=== PATIENT | female | born 1960 | race Caucasian/White ===

== ENCOUNTER 2021-12-08 17:56 | Emergency (ER) | payer OTHER, SELFPAY ==
--- NOTE | 2021-12-08 17:58 | ED.UPPEXIN ---
HPI - Extremity Injury (Upper) General Stated Complaint: congestion, sore throat, trouble breathing Time Seen by Provider: 12/08/21 17:57 Source: patient Mode of arrival: ambulatory Limitations: no limitations History of Present Illness HPI narrative: Ms. Salcedo is a 61-year-old female patient presenting to the clinic today with complaints of congestion, sore throat, and difficulty breathing x7 to 11 days. She reports no fever or chills. She is having white phlegm productive cough. She reports that she just recently came back from [place]. Denies any known exposure to anyone with COVID or flu or strep Related Data Allergies Allergy/AdvReac Type Severity Reaction Status Date / Time cefaclor [From Ceclor] Allergy Unknown Verified 12/08/21 18:15 cyclobenzaprine Allergy Unknown Verified 12/08/21 18:16 [From Flexeril] Review of Systems Review of Systems: Pertinent positives per HPI. Patient denies any fever, chills, rash, headache, visual changes, dizziness, cough, chest pain, palpitations, nausea, vomiting, diarrhea, constipation, abdominal pain, or any urinary issues. PMFSH Comments At the time of my signature, I reviewed and agree with the nursing past medical, surgical, social, and family history. There is no relevant family history pertinent to the patient complaint. Exam Narrative: General: Well-developed, well nourished, in no apparent distress Head: Normocephalic, atraumatic Eyes: Pupils equally round and reactive to light bilaterally, EOM intact, sclera and conjunctive clear, no discharge, lids normal Ears: TMs intact and bulging, ear canals clear, no drainage, grossly hearing normal. Nose: Nares patent, clear nasal discharge, moderate inflammation, no sinus tenderness. Mouth: Oral pharynx without lesions or masses, good dentition, MMM. Oropharynx red, postnasal drip Neck: Supple, trachea midline, no enlargement of anterior or posterior cervical nodes, no thyroid masses or goiter palpable. Cardio: Regular rate and rhythm, s1 and s2 normal, no murmur appreciated. Resp: Faint expiratory wheezing to posterior mid lobes, no rhonchi, rales, or rubs Course Course Emergency Course: Portions of this record may have been created with voice recognition software. Level of Care: Express Care Visit Vital Signs Vital signs: Vital signs reviewed MDM - Extremity Injury (Upper) MDM Narrative Medical decision making narrative: At the time of visit patient was resting comfortably on the exam table. I suspect the patient has bronchitis/pharyngitis. Patient has a history of COPD and she is a current smoker. She has a productive cough with white phlegm. I will go ahead and treat her as a COPD exacerbation and give her a prescription for some prednisone, azithromycin, and new albuterol inhaler. Supportive measures were discussed with the patient and she voiced understanding of discharge instructions and agrees to the treatment plan. Differential Diagnosis Differential diagnosis: Likely other (URI, pharyngitis, COVID, bronchitis, COPD exacerbation, asthma exacerbation, viral infection) Discharge Plan Discharge Clinical Impression: Bronchitis Pharyngitis Qualifiers: Pharyngitis/tonsillitis etiology: unspecified etiology Qualified Code(s): J02.9 - Acute pharyngitis, unspecified Patient Disposition: Home, Self-Care Condition: Stable Instructions: Antibiotic Form, Pharyngitis (ED), Acute Bronchitis (ED) Additional Instructions: Take prescription medications only as prescribed-prednisone, albuterol, and azithromycin Increase fluids and stay well hydrated Tylenol/motrin for pain/fever Flonase and OTC antihistamines as directed Vicks vapor rub to open sinuses Sinus rinses for congestion Cepacol spray, cough drops, throat lozenges, warm tea with honey/lemon, gargle salt water to soothe throat BRAT diet for diarrhea Clear liquids x 24 hours then advance as tolerated for nausea/vomiting August
[2021-12-08 18:04] VITALS: BP 146/74; PULSE 75; RESP 20; TEMP 36.5; O2SAT 97
== END 2021-12-08 18:20 | disposition home or self-care (01) ==
LOC: EXPBETH 18:01
PROVIDERS: Emergency Provider Nurse Practitioner Family
DX: J40 Bronchitis, not specified as acute or chronic (principal); J02.9 Acute pharyngitis, unspecified; J44.9 Chronic obstructive pulmonary disease, unspecified; F17.290 Nicotine dependence, other tobacco product, uncomplicated; I25.10 Atherosclerotic heart disease of native coronary artery without angina pectoris; Z95.1 Presence of aortocoronary bypass graft; E78.00 Pure hypercholesterolemia, unspecified; I10 Essential (primary) hypertension; E03.9 Hypothyroidism, unspecified; F41.9 Anxiety disorder, unspecified
CPT/HCPCS: 99213; G0463

== ENCOUNTER 2024-07-07 15:57 | Emergency (ER) | payer MEDICARE, SELFPAY ==
[2024-07-07 16:10] VITALS: BP 180/79; PULSE 63; RESP 20; TEMP 36.9; O2SAT 95
--- NOTE | 2024-07-07 16:24 | ED_ITS ---
HPI - URI/Sore Throat General Chief Complaint: Upper Respiratory Infection Stated Complaint: shallow breathing Time Seen by Provider: 07/07/24 16:32 Source: patient and RN notes reviewed Mode of arrival: ambulatory Limitations: no limitations History of Present Illness HPI Narrative: 64-year-old female presents with concern for ?shallow breathing?. She has history of COPD and emphysema. She reports she uses 2 inhalers, she has been using her rescue inhaler every 2 hours. She uses oxygen when she sleeps at night. She denies cough. Denies fever, runny nose, stuffy nose. MD elicited complaint: other (Shortness of breath) Related Data Home Medications ?Medication ?Instructions ?Recorded ?Confirmed ?Last Taken ?Type albuterol sulfate 90 mcg/actuation 2 puff inhalation Q6H PRN sob 12/08/21 12/08/21 Unknown History aerosol inhaler bupropion HCl 300 mg 24 hr tablet, 300 mg PO DAILY 12/08/21 12/08/21 Unknown History extended release carvedilol 25 mg tablet 25 mg PO BID 12/08/21 12/08/21 Unknown History clopidogrel 75 mg tablet 75 mg PO DAILY 12/08/21 12/08/21 Unknown History duloxetine 60 mg capsule,delayed 60 mg PO BID 12/08/21 12/08/21 Unknown History release ipratropium 0.5 mg-albuterol 3 mg 3 ml inhalation Q6H PRN sob 12/08/21 12/08/21 Unknown History (2.5 mg base)/3 mL nebulization soln lactobacillus combination no.4 3 3,000 mmu cells PO DAILY 12/08/21 12/08/21 Unknown History billion cell capsule (Probiotic) losartan 100 mg tablet 100 mg PO DAILY 12/08/21 12/08/21 Unknown History montelukast 10 mg tablet 10 mg PO DAILY 12/08/21 12/08/21 Unknown History nisoldipine 17 mg tablet,extended 17 mg PO DAILY 12/08/21 12/08/21 Unknown History release 24 hr nitroglycerin 0.2 mg/hr See Rx Instructions .Route 12/08/21 12/08/21 Unknown History transdermal 24 hour patch .COMPLEX PRN SOB rosuvastatin 10 mg tablet 10 mg PO DAILY 12/08/21 12/08/21 Unknown History trazodone 100 mg tablet 100 mg PO DAILY 12/08/21 12/08/21 Unknown History vitamin B complex 1 tablet PO DAILY 12/08/21 12/08/21 Unknown History vitamin E mixed 400 unit capsule 400 unit PO DAILY 12/08/21 12/08/21 Unknown History isosorbide mononitrate 30 mg mg PO 07/07/24 Unknown History tablet,extended release 24 hr levothyroxine 100 mcg tablet mcg 07/07/24 Unknown History Allergies Allergy/AdvReac Type Severity Reaction Status Date / Time cefaclor (From Ceclor) Allergy Mild Rash Verified 07/07/24 16:15 cyclobenzaprine (From Allergy Mild Rash Verified 07/07/24 16:15 Flexeril) Review of Systems Review of Systems: CONSTITUTIONAL: Denies malaise, chills, sweats, or fever. EYES: Denies visual changes, redness, or discharge. ENT: Denies rhinorrhea, congestion, sinus pain, otalgia and sore throat. CARDIOVASCULAR: Denies chest pain, palpitations, or edema. RESPIRATORY: Denies cough. Reports dyspnea. GASTROINTESTINAL: Denies abdominal pain, nausea, vomiting, diarrhea SKIN: Denies rash or itching. MUSCULOSKELETAL: Denies myalgia. NEUROLOGIC: Denies headache. All systems reviewed & are unremarkable except as noted in HPI and below PMFSH Comments At time of signature, agree with nursing past medical, surgical, social and family history. There is no relevant family history pertinent to the presenting complaint Exam Narrative: GENERAL: Well-appearing, well-nourished, and in no acute distress. HEAD: Normocephalic EYES: PERRLA, conjunctivae clear ENT: Nares clear, turbinates edematous and erythematous, clear discharge. Mucous membranes moist. TM pearly agustin with dull light reflex bilaterally; no tragal tenderness. Oropharynx not erythematous without lesions. Tonsils not enlarged and without exudate, no drooling, no hoarseness, no trismus, uvula midline. NECK: Supple. No lymphadenopathy CHEST: Breath sounds diminished throughout. No wheezing, rhonchi, rales, or stridor. No respiratory distress, speaks in full sentences. HEART: Regular rate and rhythm. No murmur heard. SKIN: Warm, dry, no rash. NEURO: Alert and oriented x3. PSYCH: Normal mood and affect Course Course Emergency Course: Patient is aware of diagnosis, understands and agrees to treatment plan. Anticipatory guidance given. Patient agrees to follow-up as directed and is aware of reasons to seek care at the emergency department. Portions of this record may have been created with voice recognition software Level of Care: Express Care Visit Reevaluation(s) Reevaluation #1: DuoNeb given, breath sounds improved with aeration improved after DuoNeb, O2 saturation 96%. Patient reports some improvement in symptoms. Will discharge patient with antibiotic, prednisone, albuterol inhaler refill. Date: 07/07/24 Time: 17:00 Vital Signs Vital signs: Vital Signs Temperature 98.5 F 07/07/24 16:10 Pulse Rate 63 07/07/24 16:10 Respiratory Rate 20 07/07/24 16:10 Blood Pressure 180/79 H 07/07/24 16:10 Pulse Oximetry 95 07/07/24 16:10 Oxygen Delivery Room Air 07/07/24 16:10 Temperature 98.5 F 07/07/24 16:10 Pulse Rate 63 07/07/24 16:10 Respiratory Rate 20 07/07/24 16:10 Blood Pressure 180/79 H 07/07/24 16:10 Pulse Oximetry 95 07/07/24 16:10 Oxygen Delivery Room Air 07/07/24 16:10 Reviewed. MDM - URI/Sore Throat MDM Narrative Medical decision making narrative: Differential diagnosis considered: Covarrubias virus, strep pharyngitis, allergic rhinitis, upper respiratory tract infection, sinusitis, rhinosinusitis, nasopharyngitis. viral pharyngitis, otitis media, otitis externa, pneumonia, bronchitis, viral cough syndrome, viral syndrome, and influenza. Exam findings show no acute concerns or changes; patient is non-toxic appearing and is in no distress. Patient is appropriate for outpatient treatment and follow-up. Lab Data Attestation: I reviewed the patient's lab results. Critical Care Time Critical Care Time Critical Care Time: No Discharge Plan Discharge Clinical Impression: Acute exacerbation of chronic obstructive pulmonary disease Patient Disposition: Home, Self-Care Condition: Stable Instructions: Antibiotic Form, COPD (Chronic Obstructive Pulmonary Disease) (ED) Additional Instructions: 1) Please follow-up with your primary care doctor in the next 1-2 days. 2) If you have any worsening of symptoms or any other urgent concerns please go to the ER. 3) Please take medications as prescribed and continue taking your home medications as usual. 4) Please read and follow information included in discharge instructions. Patient Language: [place] Prescriptions: New azithromycin [Zithromax Z-Ford] 250 mg tablet See Rx Instructions .ROUTE .COMPLEX Qty: 6 0RF Rx Instructions: take 500 mg today (day 1), then 250 mg for 4 days (days 2-5) prednisone 20 mg tablet 40 mg PO DAILY 5 Days Qty: 10 0RF albuterol sulfate 90 mcg/actuation HFA aerosol inhaler 2 puff INHALATION QID PRN (Reason: shortness of breath or wheezing) Qty: 8.5 0RF No Action azithromycin 250 mg tablet See Rx Instructions .ROUTE .COMPLEX Qty: 6 0RF Rx Instructions: For 250 mg dose pack: take 500 mg today (day 1), then 250 mg for 4 days (days 2-5) prednisone 20 mg tablet 40 mg PO DAILY 5 Days Qty: 10 0RF albuterol sulfate 90 mcg/actuation HFA aerosol inhaler 2 puff inhalation Q4-6H PRN (Reason: shortness of breath or wheezing) 30 Days Qty: 8.5 0RF nitroglycerin 0.2 mg/hr patch 24 hour See Rx Instructions .ROUTE .COMPLEX PRN (Reason: SOB) Rx Instructions: PRESCRIBED clopidogrel 75 mg tablet 75 mg PO DAILY trazodone 100 mg tablet 100 mg PO DAILY montelukast 10 mg tablet 10 mg PO DAILY losartan 100 mg tablet 100 mg PO DAILY rosuvastatin 10 mg tablet 10 mg PO DAILY bupropion HCl 300 mg tablet extended release 24 hr 300 mg PO DAILY nisoldipine 17 mg tablet extended release 24 hr 17 mg PO DAILY carvedilol 25 mg tablet 25 mg PO BID duloxetine 60 mg capsule,delayed release(DR/EC) 60 mg PO BID vitamin B complex Tablet 1 tablet PO DAILY vitamin E mixed [Natural Vitamin E] 400 unit Capsule 400 unit PO DAILY Probiotic 3 billion cell Capsule 3,000 mmu cells PO DAILY Rx Instructions: administer with a meal ipratropium-albuterol 0.5 mg-3 mg(2.5 mg base)/3 mL solution for nebulization 3 ml INHALATION Q6H PRN (Reason: sob) albuterol sulfate 90 mcg/actuation HFA aerosol inhaler 2 puff INHALATION Q6H PRN (Reason: sob) isosorbide mononitrate 30 mg tablet extended release 24 hr PO levothyroxine 100 mcg tablet Follow-up/Referrals: Araseli,MD Ever [Primary Care Provider] - Time of Disposition: 17:00
[2024-07-07] MEDS: IPRATROPIUM 0.5 MG/ALBUTEROL SULFATE 2.5 MG AMPUL.NEB 3 ML INHALATION (16:35)
[2024-07-07 17:03] VITALS: PULSE 58; O2SAT 96
[2024-07-07 17:05] VITALS: PULSE 61; RESP 20; O2SAT 96
--- OUTSIDE RECORDS SUMMARY | 2024-07-07 17:20 | XMS_ITS | Encounter Summary ---
Author Organization [facility] [place] [address] [place] [address] Care Team Providers Care Physician In Private Practice Name Role Phone Peter Sawant DO Primary Care Provider [phone] Abhijeet Carvajal MD Unavailable [phone] Norris Couletr MD Unavailable [phone] Fredy Foreman MD Unavailable [phone] Marv Roper Unavailable Evelyn Chavez MD Unavailable Encounter Details Date Type Department Care Team (Late st Contact Info) Description 03/07/2016 Scanned Document [employer] [facility] Rheumatology [address] [facility], [address] [place], [place] [id number] Evelyn Chavez MD [address] [place], [place] [id number] Social History Tobacco Use Types Packs/Day Years Used Date Smoking Tobacco: Light Smoker Cigarettes Smokeless Tobacco: Never Comments:age [age] Alcohol Use Standard Drinks/Week Comments Yes 0 (1 standard drink = 0.6 oz pur e alcohol) once every 6 months Comments Unknown Sex and Gender Information Value Date Recorded Sex Assigned at Not on file Legal Sex Female 9:50 AM CDT Gender Identity Not on file Sexual Orientation Not on file documented as of this encounter Plan of Treatment Not on file documented as of this encounter Visit Diagnoses Not on filedocumented in this encounter Care Teams Physician In Private Practice Relationship Specialty Start Date End Date Peter Sawant DO PCP - General Family Medicine 08/08/15 Abhijeet Carvajal MD Surgeon Neurosurgery 11/03/15 Norris Coulter MD [address] [place] [id number] Consulting Physician Pulmonary Disease 11/03/15 Fredy Foreman MD [address] [place] [phone] Residential Tech Cardiovascular Disease 11/03/15 Marv Roper PA [address] [place] [phone] Physician Medical Technologist Generalist Neurosurgery 11/03/15 Evelyn Chavez MD [address] [place] [phone] Consulting Physician Rheumatology 05/03/20 documented as of this encounter
--- OUTSIDE RECORDS SUMMARY | 2024-07-07 17:20 | XMS_ITS | Encounter Summary ---
Author Organization [facility] Address [address] [place] [address] Care Team Providers Care Bacteriologist Food Name Role Phone SavanaPeter Rajani JOHNSON Primary Care Provider Abhijeet Carvajal MD Unavailable [phone] Norris Coulter MD Unavailable [phone] Fredy Foreman MD Unavailable [phone] Marv Roper Unavailable Evelyn Chavez MD Unavailable Reason for Referral * Diagnostic Imaging (Emergency) - Closed Specialty Diagnoses / Procedures Referred By Contac t Referred To Contact Diagnoses Ulnar neuropathy of left upper extremity Procedures ECG 12 lead Abhijeet Carvajal MD Phone: tel: fax: Referral ID Status Reason Start Date Expiration Date Visits Re quested Visits Authorized [id number] Closed 06/20/2016 06/20/2017 1 1 * Diagnostic Imaging (Emergency) - Closed Specialty Diagnoses / Procedures Referred By Contac t Referred To Contact Diagnoses Ulnar neuropathy of left upper extremity Procedures X-ray chest 1 view Abhijeet Carvajal MD Phone: tel: fax: Referral ID Status Reason Start Date Expiration Date Visits Re quested Visits Authorized [id number] Closed 06/20/2016 06/20/2017 1 1 Encounter Details Date Type Department Care Team (Late st Contact Info) Description 06/20/2016 Prep for Case [facility] [address] [facility].[address], [address] [place] [address] Abhijeet Carvajal MD [address] [place] [address] Ulnar neuropathy of left upper extremity (Primary Dx) Social History Tobacco Use Types Packs/Day Years Used Date Smoking Tobacco: Light Smoker Cigarettes Smokeless Tobacco: Never Comments:age [age] Alcohol Use Standard Drinks/Week Comments Yes 0 (1 standard drink = 0.6 oz pur e alcohol) once every 6 months Comments No Sex and Gender Information Value Date Recorded Sex Assigned at Not on file Legal Sex Female 9:50 AM CDT Gender Identity Not on file Sexual Orientation Not on file documented as of this encounter Functional Status * Is this person blind or does he/she have serious difficulty seeing even when wearing glasses? Answer Date of Assessment Author No 04/19/2016 10:07 AM WINCH STRIPPER * Does this person have serious difficulty walking or climbing stairs? Answer Date of Assessment Author No 04/19/2016 10:07 AM WINCH STRIPPER * Does this person have difficulty dressing or bathing? Answer Date of Assessment Author Yes 04/19/2016 10:07 AM WINCH STRIPPER documented as of this encounter H&P Notes * Abhijeet Carvajal MD - 06/20/2016 7:51 AM CDT Images from the original note were not included. Chief Complaint Patient presents with ??? R Carpel tunnel release ? 04/26/2016 ? HPI Comments: Eduarda Salcedo presents today for her first postoperative appointment status post right carpal tunnel release. The patient reports her hand is sore along her palm as expected she does feel like maybe a little bit less numbness and tingling in her hand and fingers overall not describing any significant complaints or concerns about her surgery. She is now ready to start moving forward with her left ulnar nerve release that we discussed with her prior to the right carpal tunnel release. ? Review of Systems Constitutional: Positive for fatigue. Bleeding tendency HENT: Positive for hearing loss, sinus pressure and tinnitus. Respiratory: Positive for shortness of breath. Musculoskeletal: Positive for back pain and joint swelling. Muscle spasm Neurological: Positive for weakness. Psychiatric/Behavioral: Positive for dysphoric mood. All other systems reviewed and are negative. ?? Objective: ?? Objective Physical Exam Neurological: GENERAL APPEARANCE: Alert, Oriented X3, with no apparent distress. HEAD: Atraumatic. Normocephalic. EYES: PERRLA, no icterus. NOSE: normal. MOUTH: normal oropharynx. NECK: Supple without cervical lymphadenopathy. No masses LUNGS: No constrochondral tenderness. Resp nonlabored CVS: pulses intact, no edema ABDOMEN: soft non tender no palpable organomegally. EXTREMITIES: pulses present, no peripheral edema, clubbing or cyanosis. SKIN: no rash or bruising. Warm and dry. PSYCHIATRIC EVALUATION: normal affect. No depression or anxiety. Right hand incision is healing well with some very light bruising in her palm/palmar crease. No sign of infection. She continues to have left elbow tenderness along her ulnar groove and proximal to her elbow as well is tender. She has decreased sensation in her fourth and fifth digits. ?? IMAGING There are no images to be reviewed on today's encounter. ?? Assessment/Plan: ? Diagnosis ICD-10-CM ICD-9-CM Plan 1. Ulnar neuropathy of left upper extremity G56.22 354.2 ? No orders of the defined types were placed in this encounter. ? At this time we feel that her right wrist and hand is healing appropriately and that she'll be ready to move forward with her left ulnar nerve decompression here in the next couple of weeks. We'll begin scheduling authorization for left ulnar nerve decompression at her left elbow. Risks, expectations, benefits, possible complications were all discussed with the patient. She understands and wishesto proceed with left ulnar decompression her elbow.I declare under penalty of perjury, that I have examined this report and all statements contained herein, and to the best of my knowledge and beliefthey are true, correct and complete. This patient was seen in conjunction with Dr. Carvajal, who agrees with the above assessment and plan. documented in this encounter Plan of Treatment Not on file documented as of this encounter Results * (ABNORMAL) Urinalysis, Complete W/Reflex To Culture (06/26/2016 8:48 AM CDT) Urine Color YELLOW YELLOW [facility] Urine Clarity CLEAR CLEAR [facility] U Specific [place] 1.013 1.001 - 1.035 [facility] Urine pH 7.0 5.0 - 8.0 pH [facility] U Leukocyte Esterase Negative Negative [facility] U Nitrite Negative NEGATIVE [facility] U Glucose Negative Negative mg/dL [facility] U Protein Negative Negative [facility] U Ketone Negative Negative [facility] U Bilirubin Negative Negative [facility] Comment:Any Positive Urine B ilirubin must be confirmed by an Ictotest and is automatically reflexed. See Ictotest results for confirmation. U Blood Negative Negative [facility] U RBC/hpf None Seen None Seen [facility] U WBC/hpf None Seen None Seen [facility] U Bacteria Few(A) None Seen [facility] U Epithelial Cells 0-5 /hpf None Seen [facility] Urine specimen (specimen) Venous blood specimen / Unknown 06/26/2016 8:48 AM CDT 06/26/2016 9:46 AM CDT Narrative [facility] - 06/26/2016 10:10 AM CDT Specimen Source:->Urine, Clean Catch us Abhijeet Carvajal MD LAB URINE ORDERABLES Final Resu lt [facility] [address] [place] [address] * Basic Metabolic Panel (06/26/2016 8:48 AM CDT) Sodium 141 135 - 146 mmol/L [facility] Potassium, Serum 3.9 3.5 - 5.3 mmol/L [facility] Chloride 106 98 - 110 mmol/L [facility] Carbon Dioxide Level 28 18 - 30 mmol/L [facility] Glucose Level 79 65 - 99 mg/dL [facility] Blood Urea Nitrogen 14 7 - 25 mg/dL [facility] Creatinine 0.9 0.5 - 1.2 mg/dL [facility] Calcium Level 9.7 8.5 - 10.4 mg/dL [facility] BUN/Creatinine Ratio 15.9 6.0 - 25.0 (calc) [facility] Anion Gap-Calculated 7 4 - 16 mmol/L [facility] Osmolality (Calculated) 291.4 273.0 - 304.0 mOsmol [facility] Blood specimen (specimen) Venous blood specimen / Unknown 06/26/2016 8:48 AM CDT 06/26/2016 9:34 AM CDT Narrative [facility] - 06/26/2016 10:10 AM CDT Specimen Type->Blood us Abhijeet Carvajal MD LAB BLOOD ORDERABLES Final Resu lt [facility] [address] [place] [address] * (ABNORMAL) CBC (06/26/2016 8:48 AM CDT) WBC 6.0 3.8 - 10.8 X 10^3/uL [facility] Red Blood Cell Count 4.97 3.80 - 5.10 x 10^6/uL [facility] Hemoglobin 14.0 11.7 - 15.5 g/dL [facility] Hematocrit 41.4 35.0 - 45.0 % [facility] Mean Cell Volume 83.4 80.0 - 100.0 fL [facility] Mean Cell Hemoglobin 28.1 27.0 - 33.0 pg [facility] Mean Cell Hemoglobin Concentration 33.7 32.0 - 36.0 g/dL [facility] RDW 13.1 11.0 - 15.0 % [facility] Platelet Count 228 140 - 400 X 10^3/uL [facility] Mean Platelet Volume 6.9(L) 7.5 - 11.5 fL [facility] Neutrophils 52.4 % [facility] Lymphocytes 32.4 % [facility] Monocytes. 10.1 % [facility] Eosinophils 4.4 % [facility] Basophils 0.7 % [facility] Absolute Neutrophils 3.100 1.500 - 7.800 X 10^3/uL [facility] Absolute Lymphocytes. 1.900 0.850 - 3.900 X 10^3/uL [facility] Absolute Monocytes 0.600 0.200 - 0.950 X 10^3/uL [facility] Absolute Eosinophils 0.300 0.015 - 0.500 X 10^3/uL [facility] Absolute Nucleated RBC 0.010 X 10^3/uL [facility] Reviewed Differential NOT INDICATED [facility] Blood specimen (specimen) Venous blood specimen / Unknown 06/26/2016 8:48 AM CDT 06/26/2016 9:34 AM CDT Narrative [facility] - 06/26/2016 9:47 AM CDT Specimen Source:->Blood, Venous us Abhijeet Carvajal MD LAB BLOOD ORDERABLES Final Resu lt [facility] [address] [place] [address] documented in this encounter Visit Diagnoses Diagnosis Ulnar neuropathy of left upper extremity- Primary documented in this encounter Care Teams Bacteriologist Food Relationship Specialty Start Date End Date Peter Sawant DO PCP - General Family Medicine 08/08/15 Abhijeet Carvajal MD Surgeon Neurosurgery 11/03/15 Norris Coulter MD [address] [place] [address] Consulting Physician Pulmonary Disease 11/03/15 Fredy Foreman MD [address] [place] [address] Recovery Operator Helper Cardiovascular Disease 11/03/15 Marv Roper PA [address] [place] [address] Physician Driller And Broacher Neurosurgery 11/03/15 Evelyn Chavez MD [address] [place] [address] Consulting Physician Rheumatology 05/03/20 documented as of this encounter
--- OUTSIDE RECORDS SUMMARY | 2024-07-07 17:20 | XMS_ITS | Clinical Summary ---
Author Organization [facility] Address [address] [place] [address] Care Team Providers Care Game Preserve Manager Name Role Phone SavanaPeter eckert Rajani JOHNSON Primary Care Provider [phone] Abhijeet Carvajal MD Unavailable [phone] Norris Coulter MD Unavailable [phone] Fredy Foreman MD Unavailable [phone] Marv Roper Unavailable Evelyn Chavez MD Unavailable Allergies Active Allergy Reactions Criticality Noted Date Comments Atorvastatin Other (See Comments) 11/04/2015 Myalgia Cefaclor Hives,Rash High 11/04/2015 Cyclobenzaprine Hives,Rash High 11/04/2015 Lisinopril GI Intolerance 11/04/2015 diarrhea Medications nisoldipine (Sular) 17 MG 24 hr tablet Take 17 mg by mouth daily. 1 6 Active montelukast (Singulair) 10 MG tablet Take 10 mg by mouth daily. 1 6 Active methocarbamol (Robaxin) 500 MG tablet Take 500 mg by mouth every 8 (eight) hours as needed for muscle spasms. 2 6 Active losartan (Cozaar) 100 MG tablet Take 100 mg by mouth daily. 1 6 Active carvedilol (Coreg) 25 MG tablet Take 50 mg by mouth 2 (two) times a day with meals. 3 6 Active levothyroxine (Synthroid, Levothroid) 100 MCG tablet Take 100 mcg by mouth every morning before breakfast. Active aspirin, antiplatelet dose, 81 MG chewable tablet Chew 81 mg daily. Active hydroCHLOROthiaz estrellita (Microzide) 12.5 MG capsule Take 12.5 mg by mouth daily as needed (swelling). Active azelastine (Astelin) 0.1 % nasal spray Administer 1 spray into each nostril daily as needed for rhinitis. Use in each nostril as directed Active sodium chloride 0.9 % nebulizer solution 3 mL with ipratropium 0.02 % solution 0.5 mg, albuterol (5 MG/ML) 0.5% nebulizer solution 2.5 mg Take 3 mL by nebulization 4 (four) times a day as needed (wheezing). Active DULoxetine (Cymbalta) 60 MG capsule Take 60 mg by mouth daily. Active rosuvastatin (Crestor) 10 MG tablet Take 10 mg by mouth nightly. Active nitroglycerin (Nitrostat) 0.[address] 0.4 mg under the tongue every 5 (five) minutes as needed for chest pain. Reported on 07/12/2016 Active cloNIDine (Catapres) 0.1 MG tablet Take 0.1 mg by mouth as needed for high blood pressure (prn for systolic blood pressure greater than 160). Reported on 07/12/2016 Active tiotropium (SPIRIVA RESPIMAT) 2.5 MCG/ACT aerosol solution inhaler Inhale 1 puff nightly. Reported on 07/12/2016 Active Coenzyme Q-10 200 MG capsule Take 1 capsule by mouth daily. Active albuterol (Ventolin HFA) 108 (90 BASE) MCG/ACT inhaler Inhale 2 puffs every 6 (six) hours as needed for wheezing. Active buPROPion SR (Wellbutrin SR) 100 MG 12 hr tablet Take 200 mg by mouth daily. Active traZODone (Desyrel) 100 MG tablet Take 100 mg by mouth nightly. Active TiZANidine (ZANAFLEX) 2 MG capsule Take 2 mg by mouth 3 (three) times a day. Active clopidogrel (Plavix) 75 MG tablet Take 75 mg by mouth daily. Active hydroxychloroqui ne (Plaquenil) 200 MG tabletIndication s:Rheumatoid Arthritis TAKE 1 TABLET BY MOUTH DAILY INDICATIONS: RHEUMATOID ARTHRITIS 30 tablet 2 03/01/202 1 Active Active Problems Patient Care Coordination No te Formatting of this note migh t be different from the original. 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 non -steroidal anti-inflammatories (NSAID) 11/04/2015 Rheumatoid arthritis 11/04/2015 Osteoarthritis 11/04/2015 High risk medication use 11/04/2015 Family History Medical History Relation Name Comments Arthritis Father Heart attack Father Hypertension Father Arthritis Mother Hyperlipidemia Mother Hypertension Mother Asthma Other not specified Depression Other not specified Heart disease Other not specified Lung cancer Other not specified Stroke Other not specified Thyroid disease Other not specified Colon cancer Paternal Grandfather Heart attack Paternal Grandfather Arthritis Paternal Grandmother Breast cancer Sister Thyroid disease Sister Allergies Neg Hx Relation Name Status Comments Father Mother Other not specified Alive Paternal Grandfather Paternal Grandmother Sister Social History Tobacco Use Types Packs/Day Years Used Date Smoking Tobacco: Heavy Smoker Cigarettes 0.5 54.2 Started: 1973 Smokeless Tobacco: Never Alcohol Use Standard Drinks/Week Comments Yes 0 (1 standard drink = 0.6 oz pur e alcohol) once every 6 months Comments No Sex and Gender Information Value Date Recorded Sex Assigned at Not on file Legal Sex Female 9:50 AM CDT Gender Identity Not on file Sexual Orientation Not on file Last Filed Vital Signs Vital Sign Reading Time Taken Comments Blood Pressure 123/61 07/19/2020 11:52 AM CDT Pulse 63 07/19/2020 11:52 AM CDT Temperature 36.1 C (97 F) 07/19/2020 11:52 AM CDT Respiratory Rate 16 07/19/2020 11:52 AM CDT Oxygen Saturation 96% 07/19/2020 11:52 AM CDT Inhaled Oxygen Concentration - - Weight 72.6 kg (160 lb) 07/19/2020 11:52 AM CDT Height 162.6 cm (5' 4 ) 07/19/2020 11:52 AM CDT Body Mass Index 27.46 07/19/2020 11:52 AM CDT Plan of Treatment Health Maintenance Due Date Last Done Comments Mammogram 1960 Pneumococcal Vaccine: 65+ Years (2 of 2 - PCV) 013 06/07/2011 Influenza Vaccine (Season Ended) 2024 Colonoscopy 10/20/2030 10/20/2020 Insurance [employer]-A[employer] CHOICE POS [employer] CHOICE POS Care Teams Game Preserve Manager Relationship Specialty Start Date End Date Savana Peter GerardDO PCP - General Family Medicine 08/08/15 Abhijeet Carvajal MD Surgeon Neurosurgery 11/03/15 Norris Coulter MD [address] [place] [address] Consulting Physician Pulmonary Disease 11/03/15 Fredy Foreman MD [address] [place] [address] Table Hand Cardiovascular Disease 11/03/15 Marv Roper PA [address] [place] [address] Physician Financial Consultant Neurosurgery 11/03/15 Evelyn Chavez MD [address] [place] [address] Consulting Physician Rheumatology 05/03/20
--- OUTSIDE RECORDS SUMMARY | 2024-07-07 17:20 | XMS_ITS | Continuity of Care Document ---
Author Name [facility] Organization [facility] Care Team Providers Care Continuing Education Dean Name Role Phone [facility] Unavailable Unavailable Problems Combined list of problems from Department of Defense and [facility] facilities. It does not include entries that were removed or entered in error. Problem Status Onset Date Problem Type Date of Resolution Comments Source Allergic Rhinitis (SCT 91814693) Active Condition [facility] Anxiety Active Condition [facility] Anxiety disorder Active [place] [facility] Benign essential hypertension (SNOMED CT 3274187) Active Condition [facility] CAD - Coronary Artery Disease (SCT 78842949) Active Condition Jun 07, 2023 Entered By: RACHEL FLYNN Comment: H/O CABG [facility] CHF - Congestive Heart Failure (SCT 01324420) Active Condition [facility] Chronic obstructive lung disease Active [place] [facility] COPD - Chronic Obstructive Pulmonary Disease (SCT 18612655) Active Condition [facility] Coronary Artery Disease * Active Condition [facility] H/O: hysterectomy Active Condition [facility] History of cholecystectomy Active [place] [facility] History of coronary artery bypass grafting Active Condition Dec 28, 2014 Entered By: Corie DOBBINS Comment: CABG 06/2010 [facility] HTN - Hypertension (SCT 61815622) Active Condition [facility] Hypothyroidism (SCT 83563728) Active Condition [facility] Hypothyroidism (SNOMED CT 73105479) Active Condition [facility] Insomnia Active [place] [facility] Major depressive disorder Active Condition [facility] Major depressive disorder (SNOMED CT 605874963) Active Condition [facility] Nicotine dependence (SNOMED CT 38327750) Active Condition [facility] Obstructive Sleep Apnea of Adult (SCT 5572340436738) Active Condition [facility] Obstructive sleep apnea syndrome Active Condition [facility] Osteopenia Active Condition [facility] Pain in joint involving ankle and foot (ICD-9-CM 719.47) Active Condition [facility] Tobacco User (SCT 994615371) Active Condition [facility] Diagnosis: ICD-10-CM I25.10 Athscl heart disease of syc[place] coronary artery w/o ang pctrs Active Diagnosis [facility] Diagnosis: ICD-10-CM Z71.89 Other specified counseling Active Diagnosis [facility] Diagnosis: ICD-10-CM Z55.9 Problems related to education and literacy, unspecified Active Diagnosis [facility] Diagnosis: ICD-10-CM Z00.00 Encntr for general adult medical exam w/o abnormal findings Active Diagnosis [facility] Medications Combined list of outpatient medications from Department of Defense and [facility] facilities.Medications provided include 1) outpatient medications from the last 15 months, and 2) patient-reported medications. Medication Details Route Status Patient Instructions Prescription Expires Prescription Number Last Dispense Date Ordering Provider Order Date Order Qty Source 0 NON-VA MEDICATION ASSESSMENT DONE [facility] USE NISOLDIP INE ER 17 MG DIRECTED DAILY NOT APPLIC ABLE ACTIVE MEERA GOLDMAN 2016 [facility] ALBUTEROL SO4 0.083% INHL,3ML,UD USE 1 VIAL (3ML) INHALED UD PRN RESPIR ATORY (INHAL ATION) ACTIVE MEERA GOLDMAN 2016 [facility] ALBUTEROL SO4 90MCG/ACTUA T (CFC-F) INHL,ORAL,8 .5GM INHALE 2 PUFFS BY ORAL INHALATI ON FOUR TIMES A DAY RESPIR ATORY (INHAL ATION) ACTIVE JAMISON FLYNN [address] [facility] ASPIRIN 81MG TAB,EC TAKE ONE TABLET BY MOUTH DAILY ORAL ACTIVE MEERA GOLDMAN 2014 [facility] AZELASTINE HCL 137MCG/SPRA Y INHL,NASAL, 30ML SPRAY 1 SPRAY IN NOSTRIL( S) TWICE A DAY NASAL ACTIVE JAMISON FLYNN [address] [facility] BUPROPION HCL 300MG 24HR TAB,SA TAKE ONE TABLET BY MOUTH ONCE A DAY FOR DEPRESSI ON SWALLOW WHOLE - DO NOT CRUSH OR CHEW. ORAL ACTIVE 05/01/2025 [id number] JAMISON FLYNN [address] [facility] BUPROPION HCL 300MG 24HR TAB,SA TAKE ONE TABLET BY MOUTH ONCE A DAY FOR DEPRESSI ON SWALLOW WHOLE - DO NOT CRUSH OR CHEW. ORAL DISCONT INUED 09/25/2024 [id number] JAMISON FLYNN [address] [facility] CARVEDILOL 25MG TAB TAKE ONE TABLET BY MOUTH TWICE A DAY ORAL ACTIVE MEERA GOLDMAN 2015 [facility] CHOLECALCIF KRISTYN (LOW DOSE VIT D) - (OTC) TAB TAKE BY MOUTH ONCE A DAY ORAL ACTIVE JAMISON FLYNN [address] [facility] CHOLECALCIF KRISTYN 25MCG (1,000UNIT) TAB TAKE ONE TABLET BY MOUTH DAILY ORAL ACTIVE FAHEEM PALACIOS 2017 [facility] CLONIDINE HCL 0.1MG TAB TAKE ONE TABLET BY MOUTH ONCE A DAY ORAL ACTIVE JAMISON FLYNN [address] [facility] CLOPIDOGREL BISULFATE 75MG TAB TAKE ONE TABLET BY MOUTH DAILY ORAL ACTIVE MEERA GOLDMAN 2017 [facility] CLOPIDOGREL BISULFATE 75MG TAB TAKE ONE TABLET BY MOUTH ONCE A DAY ORAL ACTIVE JAMISON FLYNN [address] [facility] DULOXETINE HCL 60MG CAP,EC TAKE ONE CAPSULE BY MOUTH TWICE A DAY FOR DEPRESSI ON DO NOT ABRUPTLY DISCONTI NUE MEDICATI ON. ORAL ACTIVE 05/01/2025 [id number] JAMISON FLYNN [address] [place] [address] [facility] DULOXETINE HCL 60MG CAP,EC TAKE ONE CAPSULE BY MOUTH TWICE A DAY FOR DEPRESSI ON DO NOT ABRUPTLY DISCONTI NUE MEDICATI ON. ORAL DISCONT INUED 11/07/2024 [id number] NAMRATA MULLINS 2023 180 [facility] DULOXETINE HCL 60MG CAP,EC TAKE ONE CAPSULE BY MOUTH ONCE A DAY FOR DEPRESSI ON DO NOT ABRUPTLY DISCONTI NUE MEDICATI ON. ORAL DISCONT INUED (EDIT) 09/25/2024 [id number] JAMISON FLYNN Tesha [address] [facility] HYDROCHLORO THIAZIDE 25MG TAB TAKE ONE-HALF TABLET BY MOUTH ONCE A DAY ORAL ACTIVE JAMISON FLYNN [address] [facility] ISOSORBIDE MONONITRATE 30MG TAB,SA TAKE ONE TABLET BY MOUTH ONCE A DAY ORAL ACTIVE JAMISON FLYNN [address] [facility] LEVOTHYROXI NE NA 150MCG TAB (SYNTHROID) TAKE ONE TABLET BY MOUTH EVERY MORNING BEFORE A MEAL ORAL ACTIVE JAMISON FLYNN [address] [facility] [place]AN POTASSIUM 100MG TAB TAKE ONE TABLET BY MOUTH DAILY ORAL ACTIVE MEERA GOLDMAN 2015 [facility] [place] POTASSIUM 100MG TAB TAKE ONE TABLET BY MOUTH ONCE A DAY ORAL ACTIVE JAMISON FLYNN [address] [facility] MONTELUKAST NA 10MG TAB TAKE ONE TABLET BY MOUTH EVERY EVENING ORAL ACTIVE JAMISON FLYNN [address] [facility] MULTIVITAMI NS CAP/TAB TAKE ONE TABLET BY MOUTH ONCE A DAY ORAL ACTIVE GEE JAMISON Tesha [address] [facility] NISOLDIPINE (24HR SR) TAB,SA TAKE 17MG BY MOUTH ONCE A DAY ORAL ACTIVE JAMISON FLYNN [address] [facility] ROSUVASTATI N CA 20MG TAB TAKE ONE-HALF TABLET BY MOUTH DAILY ORAL ACTIVE MEERA GOLDMAN 2014 [facility] ROSUVASTATI N CA 20MG TAB TAKE ONE-HALF TABLET BY MOUTH EVERY EVENING ORAL ACTIVE JAMISON FLYNN [address] [facility] TIOTROPIUM 2.5MCG/ACTU AT INHL,ORAL,6 0D,4GM INHALE 1 BY ORAL INHALATI ON DAILY RESPIR ATORY (INHAL ATION) ACTIVE MEERA GOLDMAN 2014 [facility] TRAZODONE HCL 100MG TAB TAKE ONE TABLET BY MOUTH AT BEDTIME NEEDED FOR INSOMNIA ORAL SUSPEND ED 05/01/2025 [id number] 5 JAMISON FLYNN [address] [facility] TRAZODONE HCL 100MG TAB TAKE ONE TABLET BY MOUTH AT BEDTIME NEEDED FOR INSOMNIA ORAL DISCONT INUED 08/04/2024 [id number] JAMISON FLYNN [address] [facility] Allergies, Adverse Reactions, Alerts Combined list of allergies from Department of Defense and Veterans Affairs facilities. It does not include entries that were removed or entered in error. Substance Category Reaction Severity Reaction type Status Date Reported Comments Source ADHESIVES Propensity to adverse reaction (finding) Eruption active 4 [facility] ATORVASTATIN Propensity to adverse reactions to drug (finding) Muscle pain active 4 [facility] CECLOR Propensity to adverse reactions to drug (finding) active 9 [facility] CECL[place] Propensity to adverse reactions to drug (finding) Eruption active 4 [facility] [place] Propensity to adverse reaction (finding) Nasal congestion active 4 [facility] CYCLOBENZAPR INE Propensity to adverse reactions to drug (finding) Eruption active 9 [facility] [place] Propensity to adverse reaction (finding) Nasal congestion active 4 [facility] INFLUENZA Propensity to adverse reactions to drug (finding) Urticaria, Eruption active 4 [facility] NICOTINE PATCH Propensity to adverse reactions to drug (finding) Eruption active 4 [facility] ZOLPIDEM Propensity to adverse reactions to drug (finding) active 5 [facility] ZOLPIDEM Propensity to adverse reactions to drug (finding) Akinesia active 4 [facility] Immunizations Combined list of available immunizations from the Department of Defense and Veterans Affairs facilities. 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 Order Name Results Value Reference Range Date Interpretation Specimen Comments Source COMPREHEN SIVE METABOLIC PANEL CREATININE [MASS/VOLUM E] IN SERUM OR PLASMA 1.04 mg/dL 0.6 - 1.1 06/06 Specimen Type: PLASMA Comment: No hemolysis noted. Ordering Provider: EMELIA FLYNN Report Released Date/Time: Jun 07, 2023 12:59 PM Reporting Lab: [facility] [address] [place] [address] Performing Lab: [facility] [address] [place], [place] [phone] [address] [facility] COMPREHEN SIVE METABOLIC PANEL UREA NITROGEN [MASS/VOLUM E] IN SERUM OR PLASMA 15.6 mg/dL 9.0 - 25.0 06/06 Specimen Type: PLASMA Comment: No hemolysis noted. Ordering Provider: EMELIA FLYNN Report Released Date/Time: Jun 07, 2023 12:59 PM Reporting Lab: [facility] [address] [place] [phone] Performing Lab: [facility] [address] [place] [phone] [facility] [facility] COMPREHEN SIVE METABOLIC PANEL GLUCOSE [MASS/VOLUM E] IN SERUM OR PLASMA 97 mg/dL 72 - 99 06/06 Specimen Type: PLASMA Comment: No hemolysis noted. Ordering Provider: EMELIA FLYNN Report Released Date/Time: Jun 07, 2023 12:59 PM Reporting Lab: [facility] [address] [place] [phone] Performing Lab: [facility] [address] [facility] [address] [facility] COMPREHEN SIVE METABOLIC PANEL SODIUM [MOLES/VOLU ME] IN SERUM OR PLASMA 142 meq/L 136 - 145 06/06 Specimen Type: PLASMA Comment: No hemolysis noted. Ordering Provider: EMELIA FLYNN Report Released Date/Time: Jun 07, 2023 12:59 PM Reporting Lab: [address] [address] Performing Lab: [address] [address] [facility] COMPREHEN SIVE METABOLIC PANEL POTASSIUM [MOLES/VOLU ME] IN SERUM OR PLASMA 3.7 meq/L 3.5 - 5 06/06 Specimen Type: PLASMA Comment: No hemolysis noted. Ordering Provider: EMELIA FLYNN Report Released Date/Time: Jun 07, 2023 12:59 PM Reporting Lab: [address] [address] Performing Lab: [address] [address] [facility] COMPREHEN SIVE METABOLIC PANEL CHLORIDE [MOLES/VOLU ME] IN SERUM OR PLASMA 105 meq/L 98 - 107 06/06 Specimen Type: PLASMA Comment: No hemolysis noted. Ordering Provider: EMELIA FLYNN Report Released Date/Time: Jun 07, 2023 12:59 PM Reporting Lab: [address] [address] Performing Lab: [address] [address] [facility] COMPREHEN SIVE METABOLIC PANEL CARBON DIOXIDE, TOTAL [MOLES/VOLU ME] IN SERUM OR PLASMA 26 meq/L 22 - 31 06/06 Specimen Type: PLASMA Comment: No hemolysis noted. Ordering Provider: EMELIA FLYNN Report Released Date/Time: Jun 07, 2023 12:59 PM Reporting Lab: [address] [address] Performing Lab: [facility] [phone] [facility] COMPREHEN SIVE METABOLIC PANEL CALCIUM [MASS/VOLUM E] IN SERUM OR PLASMA 9.7 mg/dL 8.4 - 10.4 06/06 Specimen Type: PLASMA Comment: No hemolysis noted. Ordering Provider: EMELIA FLYNN Report Released Date/Time: Jun 07, 2023 12:59 PM Reporting Lab: [place] [address] [facility] [address] Performing Lab: [place] [address] [facility] [address] [facility] COMPREHEN SIVE METABOLIC PANEL PROTEIN [MASS/VOLUM E] IN SERUM OR PLASMA 6.7 g/dL 6 - 8.6 06/06 Specimen Type: PLASMA Comment: No hemolysis noted. Ordering Provider: EMELIA FLYNN Report Released Date/Time: Jun 07, 2023 12:59 PM Reporting Lab: [place] [address] [facility] [address] Performing Lab: [place] [address] [facility] [address] [facility] COMPREHEN SIVE METABOLIC PANEL ALBUMIN [MASS/VOLUM E] IN SERUM OR PLASMA 4.1 g/dL 3.4 - 5 06/06 Specimen Type: PLASMA Comment: No hemolysis noted. Ordering Provider: EMELIA FLYNN Report Released Date/Time: Jun 07, 2023 12:59 PM Reporting Lab: [place] [address] [facility] [address] Performing Lab: [place] [address] [facility] [address] [facility] COMPREHEN SIVE METABOLIC PANEL BILIRUBIN.T OTAL [MASS/VOLUM E] IN SERUM OR PLASMA 0.6 mg/dL 0.2 - 1.2 06/06 Specimen Type: PLASMA Comment: No hemolysis noted. Ordering Provider: EMELIA FLYNN Report Released Date/Time: Jun 07, 2023 12:59 PM Reporting Lab: [facility] [address] [facility] [phone] Performing Lab: [facility] [address] [place] [phone] [facility] COMPREHEN SIVE METABOLIC PANEL ALKALINE PHOSPHATASE [ENZYMATIC ACTIVITY/VO LUME] IN SERUM OR PLASMA 97 U/L 40 - 150 06/06 Specimen Type: PLASMA Comment: No hemolysis noted. Ordering Provider: EMELIA FLYNN Report Released Date/Time: Jun 07, 2023 12:59 PM Reporting Lab: [place] [address] [facility] [address] Performing Lab: [address] [phone] [place] [address] [facility] COMPREHEN SIVE METABOLIC PANEL ASPARTATE AMINOTRANSF ERASE [ENZYMATIC ACTIVITY/VO LUME] IN SERUM OR PLASMA 15 U/L 5 - 34 06/06 Specimen Type: PLASMA Comment: No hemolysis noted. Ordering Provider: EMELIA FLYNN Report Released Date/Time: Jun 07, 2023 12:59 PM Reporting Lab: [place] [address] [facility] [address] Performing Lab: [address] [address] [facility] COMPREHEN SIVE METABOLIC PANEL ALANINE AMINOTRANSF ERASE [ENZYMATIC ACTIVITY/VO LUME] IN SERUM OR PLASMA 14 U/L 8 - 40 06/06 Specimen Type: PLASMA Comment: No hemolysis noted. Ordering Provider: EMELIA FLYNN Report Released Date/Time: Jun 07, 2023 12:59 PM Reporting Lab: [facility] [address] [place] [phone] Performing Lab: [address] [address] [facility] COMPREHEN SIVE METABOLIC PANEL GLOMERULAR FILTRATION RATE/1.73 SQ M.PREDICTED [VOLUME RATE/AREA] IN SERUM, PLASMA OR BLOOD BY CREATININE- BASED FORMULA (CKD-EPI 2020) 59.7 60 06/06 Specimen Type: PLASMA Comment: No hemolysis noted. Ordering Provider: EMELIA FLYNN Report Released Date/Time: Jun 07, 2023 12:59 PM Reporting Lab: [facility] [address] [place] [phone] Performing Lab: [facility] [address] [place] [phone] [facility] LIPID PANEL (STL) CHOLESTEROL [MASS/VOLUM E] IN SERUM OR PLASMA 146 mg/dL 0 - 200 06/06 Specimen Type: PLASMA Comment: No hemolysis noted. Ordering Provider: EMELIA FLYNN Report Released Date/Time: Jun 07, 2023 12:59 PM Reporting Lab: [address] [address] Performing Lab: [address] [address] [facility] LIPID PANEL (STL) TRIGLYCERID E [MASS/VOLUM E] IN SERUM OR PLASMA 107 mg/dL 0 - 150 06/06 Specimen Type: PLASMA Comment: No hemolysis noted. Ordering Provider: EMELIA FLYNN Report Released Date/Time: Jun 07, 2023 12:59 PM Reporting Lab: [facility] [address] [place] [phone] Performing Lab: [facility] [address] [place] [phone] [facility] LIPID PANEL (STL) CHOLESTEROL IN LDL [MASS/VOLUM E] IN SERUM OR PLASMA BY CALCULATION 70 mg/dL 06/06 Specimen Type: PLASMA Comment: No hemolysis noted. Ordering Provider: EMELIA FLYNN Report Released Date/Time: Jun 07, 2023 12:59 PM Reporting Lab: [facility] [address] [place] [phone] Performing Lab: [facility] [address] [place] [phone] [facility] LIPID PANEL (STL) CHOLESTEROL IN HDL [MASS/VOLUM E] IN SERUM OR PLASMA 55 mg/dL 40 06/06 Specimen Type: PLASMA Comment: No hemolysis noted. Ordering Provider: EMELIA FLYNN Report Released Date/Time: Jun 07, 2023 12:59 PM Reporting Lab: [facility] [address] [place] [address] Performing Lab: [facility] [address] [place] [phone] [place] [address] [facility] CBC LEUKOCYTES [#/VOLUME] IN BLOOD BY AUTOMATED COUNT 7.0 10*3/uL 3.6 - 11.2 06/06 Specimen Type: BLOOD No comment entered. Ordering Provider: EMELIA FLYNN Report Released Date/Time: Jun 07, 2023 12:59 PM Reporting Lab: [place] [address] Performing Lab: [address] [facility] CBC ERYTHROCYTE S [#/VOLUME] IN BLOOD BY AUTOMATED COUNT 4.76 10*6/uL 3.60 - 5.00 06/06 Specimen Type: BLOOD No comment entered. Ordering Provider: EMELIA FLYNN Report Released Date/Time: Jun 07, 2023 12:59 PM Reporting Lab: [facility] [address] [place] [address] Performing Lab: [address] [phone] [facility] CBC HEMOGLOBIN [MASS/VOLUM E] IN BLOOD 12.9 g/dL 11.0 - 14.9 06/06 Specimen Type: BLOOD No comment entered. Ordering Provider: EMELIA FLYNN Report Released Date/Time: Jun 07, 2023 12:59 PM Reporting Lab: [facility] [address] [place] [address] Performing Lab: [address] [phone] [facility] CBC HEMATOCRIT [VOLUME FRACTION] OF BLOOD 39.7 32.6 - 43.4 06/06 Specimen Type: BLOOD No comment entered. Ordering Provider: EMELIA FLYNN Report Released Date/Time: Jun 07, 2023 12:59 PM Reporting Lab: [facility] [address] [place], [place] [phone] Performing Lab: [facility] [address] [place], [place] [phone] [address] [facility] CBC MCV [ENTITIC VOLUME] BY AUTOMATED COUNT 83.4 fL 80.0 - 100.0 06/06 Specimen Type: BLOOD No comment entered. Ordering Provider: EMELIA FLYNN Report Released Date/Time: Jun 07, 2023 12:59 PM Reporting Lab: [place] [address] Performing Lab: [address] [facility] CBC MCH [ENTITIC MASS] BY AUTOMATED COUNT 27.1 pg 27.0 - 34.0 06/06 Specimen Type: BLOOD No comment entered. Ordering Provider: EMELIA FLYNN Report Released Date/Time: Jun 07, 2023 12:59 PM Reporting Lab: [place] [address] Performing Lab: [address] [facility] CBC MCHC [MASS/VOLUM E] BY AUTOMATED COUNT 32.5 g/dL 33.0 - 36.0 06/06 L Specimen Type: BLOOD No comment entered. Ordering Provider: EMELIA FLYNN Report Released Date/Time: Jun 07, 2023 12:59 PM Reporting Lab: [facility] [address] [place] [address] Performing Lab: [facility] [address] [place] [address] [facility] CBC PLATELETS [#/VOLUME] IN BLOOD BY AUTOMATED COUNT 220 10*3/uL 150 - 400 06/06 Specimen Type: BLOOD No comment entered. Ordering Provider: EMELIA FLYNN Report Released Date/Time: Jun 07, 2023 12:59 PM Reporting Lab: [facility] [address] [facility] [phone] Performing Lab: [facility] [address] [place] [phone] [facility] CBC PLATELET MEAN VOLUME [ENTITIC VOLUME] IN BLOOD BY AUTOMATED COUNT 9.6 fL 7.5 - 11.2 06/06 Specimen Type: BLOOD No comment entered. Ordering Provider: EMELIA FLYNN Report Released Date/Time: Jun 07, 2023 12:59 PM Reporting Lab: [address] [address] Performing Lab: [address] [address] [facility] CBC ERYTHROCYTE DISTRIBUTIO N WIDTH [RATIO] BY AUTOMATED COUNT 12.6 11.8 - 15.1 06/06 Specimen Type: BLOOD No comment entered. Ordering Provider: EMELIA FLYNN Report Released Date/Time: Jun 07, 2023 12:59 PM Reporting Lab: [facility] [address] Performing Lab: [address] [address] [facility] CBC LYMPHOCYTES /100 LEUKOCYTES IN BLOOD BY AUTOMATED COUNT 27 06/06 Specimen Type: BLOOD No comment entered. Ordering Provider: EMELIA FLYNN Report Released Date/Time: Jun 07, 2023 12:59 PM Reporting Lab: [facility] [address] [place] [phone] Performing Lab: [facility] [address] [facility] [address] [facility] CBC MONOCYTES/1 00 LEUKOCYTES IN BLOOD BY AUTOMATED COUNT 7 06/06 Specimen Type: BLOOD No comment entered. Ordering Provider: EMELIA FLYNN Report Released Date/Time: Jun 07, 2023 12:59 PM Reporting Lab: [facility] [address] [place] [phone] Performing Lab: [address] [place] [address] [facility] CBC NEUTROPHILS /100 LEUKOCYTES IN BLOOD BY AUTOMATED COUNT 64 06/06 Specimen Type: BLOOD No comment entered. Ordering Provider: EMELIA FLYNN Report Released Date/Time: Jun 07, 2023 12:59 PM Reporting Lab: [facility] [address] [place] [phone] Performing Lab: [address] [address] [facility] CBC EOSINOPHILS /100 LEUKOCYTES IN BLOOD BY AUTOMATED COUNT 2 06/06 Specimen Type: BLOOD No comment entered. Ordering Provider: EMELIA FLYNN Report Released Date/Time: Jun 07, 2023 12:59 PM Reporting Lab: [address] [address] Performing Lab: [place] [id number] [facility] CBC BASOPHILS/1 00 LEUKOCYTES IN BLOOD BY AUTOMATED COUNT 1 06/06 Specimen Type: BLOOD No comment entered. Ordering Provider: EMELIA FLYNN Report Released Date/Time: Jun 07, 2023 12:59 PM Reporting Lab: [address] [id number] Performing Lab: [address] [id number] [place] [address] [facility] CBC LYMPHOCYTES [#/VOLUME] IN BLOOD BY AUTOMATED COUNT 1.86 10*3/uL 0.77 - 4.50 06/06 Specimen Type: BLOOD No comment entered. Ordering Provider: EMELIA FLYNN Report Released Date/Time: Jun 07, 2023 12:59 PM Reporting Lab: [facility] [address] [place] [phone] Performing Lab: [address] [address] [facility] CBC MONOCYTES [#/VOLUME] IN BLOOD BY AUTOMATED COUNT 0.47 10*3/uL 0.19 - 0.80 06/06 Specimen Type: BLOOD No comment entered. Ordering Provider: EMEILA FLYNN Report Released Date/Time: Jun 07, 2023 12:59 PM Reporting Lab: [facility] [address] [place] [address] Performing Lab: [facility] [address] [place] [phone] [place] [address] [facility] CBC NEUTROPHILS [#/VOLUME] IN BLOOD BY AUTOMATED COUNT 4.48 10*3/uL 2.10 - 8.00 06/06 Specimen Type: BLOOD No comment entered. Ordering Provider: EMELIA FLYNN Report Released Date/Time: Jun 07, 2023 12:59 PM Reporting Lab: [facility] [address] [place] [address] Performing Lab: [address] [facility] CBC EOSINOPHILS [#/VOLUME] IN BLOOD BY AUTOMATED COUNT 0.16 10*3/uL 0.00 - 0.60 06/06 Specimen Type: BLOOD No comment entered. Ordering Provider: EMELIA FLYNN Report Released Date/Time: Jun 07, 2023 12:59 PM Reporting Lab: [facility] [address] [place] [address] Performing Lab: [address] [facility] CBC BASOPHILS [#/VOLUME] IN BLOOD BY AUTOMATED COUNT 0.05 10*3/uL 0.00 - 0.20 06/06 Specimen Type: BLOOD No comment entered. Ordering Provider: EMELIA FLYNN Report Released Date/Time: Jun 07, 2023 12:59 PM Reporting Lab: [facility] [address] [place] [address] Performing Lab: [address] [phone] [facility] HGA1C HEMOGLOBIN A1C/HEMOGLO BIN.TOTAL IN BLOOD 5.6 4.0 - 6.0 06/06 H Specimen Type: BLOOD Comment: NOTIFIED JAMISON GEE ENFORCEMENT MANAGER ON 06/07/23 @ 2226 MTS HGA1C reported incorrectly as 6.3 by [[id number]]. Changed to 5.6 on Jun 07, 2023@22:26 by [[id number]]. HGA1C flagged incorrectly as H by [[id number]]. Changed to normal on Jun 07, 2023@22:26 by [[id number]]. Ordering Provider: EMELIA FLYNN Report Released Date/Time: Jun 07, 2023 12:59 PM Reporting Lab: [place] [address] Performing Lab: [address] [facility] TSH (OR-- L) THYROTROPIN [UNITS/VOLU ME] IN SERUM OR PLASMA 0.171 u[IU]/mL 0.47 - 5 06/06 L Specimen Type: SERUM Comment: No hemolysis noted. Ordering Provider: EMELIA FLYNN Report Released Date/Time: Jun 07, 2023 12:59 PM Reporting Lab: [facility] [address] [place] [address] Performing Lab: [address] [phone] [facility] TSH (OR-PB- L) THYROXINE (T4) FREE [MASS/VOLUM E] IN SERUM OR PLASMA 1.55 ng/mL 0.7 - 1.48 06/06 H Specimen Type: SERUM Comment: No hemolysis noted. Ordering Provider: EMELIA FLYNN Report Released Date/Time: Jun 07, 2023 12:59 PM Reporting Lab: [facility] [address] [place] [address] Performing Lab: [facility] [address] [place] [address] [phone] [place] [address] [facility] MICRAL/CR EAT PROFILE (STL) ALBUMIN [MASS/VOLUM E] IN URINE 25.6 mg/L 06/06 Specimen Type: URINE No comment entered. Ordering Provider: EMELIA FLYNN Report Released Date/Time: Jun 07, 2023 12:59 PM Reporting Lab: [facility] [address] [place], [place] [phone] Performing Lab: [facility] [address] [place] [phone] [facility] MICRAL/CR EAT PROFILE (STL) ALBUMIN/CRE ATININE [MASS RATIO] IN URINE 12 mg/g 0 - 29 06/06 Specimen Type: URINE No comment entered. Ordering Provider: EMELIA FLYNN Report Released Date/Time: Jun 07, 2023 12:59 PM Reporting Lab: [place] [address] Performing Lab: [address] [phone] [place] [address] [facility] MICRAL/CR EAT PROFILE (STL) CREATININE [MASS/VOLUM E] IN URINE 222.3 mg/dL 47 - 110 06/06 H Specimen Type: URINE No comment entered. Ordering Provider: EMELIA FLYNN Report Released Date/Time: Jun 07, 2023 12:59 PM Reporting Lab: [facility] [address] [place], [place] [phone] Performing Lab: [address] [phone] [facility] HIV COMBO FOURTH GENERATIO N (STL) HIV 1+2 AB+HIV1 P24 AG [PRESENCE] IN SERUM OR PLASMA BY IMMUNOASSAY Nonreact kena 06/06 Specimen Type: SERUM No comment entered. Ordering Provider: EMELIA FLYNN Report Released Date/Time: Jun 07, 2023 12:59 PM Reporting Lab: [facility] [address] [place], [place] [phone] Performing Lab: [facility] [address] [place] [phone] [facility] HEP C Ab HCV Ab (STL) HEPATITIS C VIRUS AB [PRESENCE] IN SERUM Nonreact kena 06/06 Specimen Type: SERUM No comment entered. Ordering Provider: EMELIA FLYNN Report Released Date/Time: Jun 07, 2023 12:59 PM Reporting Lab: [facility] [address] [facility] [address] Performing Lab: [facility] [address] [facility] [address] [facility] Encounters Combined list of: 1) Encounters from Department of Veterans Affairs facilities going backup to the last 18 months, not all VA inpatient encounters are included; 2) Encounters from the Department of [facility] facilities going backup to 280 months. Location Location Details Encounter Type Encounter Number Reason For Visit Attending Provider ADM Date DC Date Status Disposition Source [facility] Outpatient Encounter [id number] 04/03 [facility] Outpatient Encounter [id number] 04[facility]03 [facility] [id number] 04/12 [facility] [place] En[place] [id number] 04/15 [facility] Outpatient Encounter [id number] 05/07 [facility] Outpatient Encounter [id number] 05/08 [facility] En[facility] [id number] 05/14 [facility] Outpatient Encounter [id number] 05/[address] [facility] Outpatient Encounter [id number] 05/16 [facility] Outpatient Encounter [id number] [facility] OFFICE O/P NEW LOW 30 MIN [id number] Diagnos is: ICD-10- CM Z00.00 Encntr for general adult medical exam w/o abnorma l finding s Jhonny FLYNN 06/[address] [facility] FEE [id number] Diagnos is: ICD-10- CM Z55.9 Problem s related to educati on and literac y, unspeci fied VALDEMAR CASTAON O 06/06 [facility] Outpatient Encounter [id number] Jhonny FLYNN 06/06 [facility] Outpatient Encounter [id number] 06/06 [facility] N [facility] Outpatient Encounter [id number] Jhonny FLYNN 06/07 [facility] Outpatient Encounter [id number] 06/09 [facility] Outpatient Encounter [id number] 06/09 [facility] En[facility] [id number] 07/22 [facility] PRO PHONE CALL 5-10 MIN [id number] Diagnos is: ICD-10- CM Z71.89 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 OTIS LANDRUM 08/01 [facility] Outpatient Encounter [id number] Filomena BECKFORD JR 08/01 [facility] Outpatient Encounter [id number] ESME YOST 08/01 [facility] [place]patient Encounter [id number] 08/04 [facility] Outpatient Encounter [id number] 08/13 [facility] Outpatient Encounter [id number] AMOSCIARAH I T 09/24 [facility] Outpatient Encounter [id number] 10/20 [facility] Outpatient Encounter [id number] FLACO JOHNSON 11/04 [facility] Outpatient Encounter [id number] 11/04 [facility] Outpatient Encounter [id number] ESME YOST 11/06 [facility] Encounter [id number] 11/12 [facility] Outpatient Encounter [id number] 11/24 [facility] Encounter [id number] ESQUIVELCLAUDIA IDGET LA 04/22 [facility] Outpatient Encounter [id number] ESQUIVELCLAUDIA IDGET LA 04/22 [facility] Outpatient Encounter [id number] FLACO JOHNSON KIRAN 04/24 [facility] N [facility] Outpatient Encounter [id number] 04/28 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 Outpatient Encounter [id number] 06/01 [facility] Social History Combined list of available smoking, tobacco, and other social history from Department of Defense and Veterans Affairs facilities. Social History Type Response Date Comment Sourc e Tobacco smoking status NHIS VA-TOBACCO USER EVERY DAY 06/07/[address] [facility] History of tobacco use VA-TOBACCO USE WI 30 MIN OF WAKEUP 06/07/[address] [facility] History of tobacco use VA-TOBACCO USER E VERY DAY 12/23/2020 [facility] History of tobacco use VA-TOBACCO USER E VERY DAY 12/15/2019 [facility] History of tobacco use VA-TOBACCO USER E VERY DAY 01/09/2018 [facility] History of tobacco use V16 CURRENT TOBACCO USER 09/16/2017 [facility] History of tobacco use V16 TOBACCO CESSA TION ED (PROVIDER) 12/24/2016 [facility] History of tobacco use V16 CURRENT TOBACCO USER 10/02/2016 [facility] History of tobacco use V16 CURRENT TOBACCO USER 11/28/2015 [facility] History of tobacco use V16 TOBACCO CESSA TION ED (PROVIDER) 12/03/2014 [facility] History of tobacco use V16 CURRENT TOBACCO USER 12/03/2014 [facility] History of tobacco use V16 CURRENT TOBACCO USER 11/09/2009 [facility] History of tobacco use V16 CURRENT TOBACCO USER 09/20/2008 [facility] Advance Directives List of completed, amended, or rescinded Advance Directives on record at Department of [facility] Affairs facilities. An actual copy of the Directive is not included. Date Advance Directive Provider Source 01/09/2018 ADVANCE DIRECTIVE DISCUSSION Corie DOBBINS [facility] 12/28/2014 ADVANCE DIRECTIVE DISCUSSION Corie DOBBINS [facility]
--- OUTSIDE RECORDS SUMMARY | 2024-07-07 17:20 | XMS_ITS | Encounter Summary ---
Author Organization [facility] Address [address] [place] [address] Care Team Providers Care Public Health Engineer Name Role Phone Peter Sawant DO Primary Care Provider [phone] Abhijeet Carvajal MD Unavailable [phone] Norris Coulter MD Unavailable [phone] Fredy Foreman MD Unavailable [phone] Marv Roper Unavailable Evelyn Chavez MD Unavailable Encounter Details Date Type Department Care Team (Late st Contact Info) Description 02/23/2016 Scanned Document [employer] [facility] Spine and Neurological Surgery [address] [place], [place] [phone] Abhijeet Carvajal MD [address] [place], [place] [phone] Social History Tobacco Use Types Packs/Day Years [...] on filedocumented in this encounter Care Teams Public Health Engineer Relationship Specialty Start Date End Date Peter SawantDO PCP - General Family Medicine 08/08/15 Abhijeet Carvajal MD Surgeon Neurosurgery 11/03/15 Norris Coulter MD [address] [place] [address] Consulting Physician Pulmonary Disease 11/03/15 Fredy Foreman MD [address] [place] [address] Graphic Editor Cardiovascular Disease 11/03/15 Marv Roper PA [address] [place] [address] Physician Wellness Program Administrator Neurosurgery 11/03/15 Evelyn Chavez MD [address] [place] [phone] Consulting Physician Rheumatology 05/03/20 documented as of this encounter
--- OUTSIDE RECORDS SUMMARY | 2024-07-07 17:20 | XMS_ITS | Encounter Summary ---
Author Organization [facility] Address [address] [place] [address] Care Team Providers Care Telephone Information Supervisor Name Role Phone SavanaPeter eckert Primary Care Provider [phone] Abhijeet Carvajal MD Unavailable [phone] Norris Coulter MD Unavailable [phone] Fredy Foreman MD Unavailable [phone] Marv Roper Unavailable Evelyn Chavez MD Unavailable Encounter Details Date Type Department Care Team (Late st Contact Info) Description 11/09/2020 Scanned Document [facility] [facility] Rheumatology [address] [facility] [place], [place] [phone] Evelyn Chavez MD [address] [place], [place] [id number] Social History Tobacco Use Types Packs/Day Years [...] glasses? Answer Date of Assessment Author No 06/26/2016 9:17 AM CDT * Does this person have serious difficulty walking or climbing stairs? Answer Date of Assessment Author No 06/26/2016 9:17 AM CDT * Does this person have difficulty dressing or bathing? Answer Date of Assessment Author No 06/26/2016 9:17 AM CDT documented as of this encounter Plan of Treatment Not on file documented as of this encounter Visit Diagnoses Not on filedocumented in this encounter Care Teams Telephone Information Supervisor Relationship Specialty Start Date End Date Peter Sawant DO PCP - General Family Medicine 08/08/15 Abhijeet Carvajal MD Surgeon Neurosurgery 11/03/15 Norris Coulter MD [address] [place] [phone] Consulting Physician Pulmonary Disease 11/03/15 Fredy Foreman MD [address] [place] [phone] Payroll Benefits Administrator Cardiovascular Disease 11/03/15 Marv Roper PA [address] [place] [phone] Physician Occupational Therapy Technician Neurosurgery 11/03/15 Evelyn Chavez MD [address] [place] [phone] Consulting Physician Rheumatology 05/03/20 documented as of this encounter
--- OUTSIDE RECORDS SUMMARY | 2024-07-07 17:20 | XMS_ITS | Encounter Summary ---
Author Organization [employer] [facility] Address [address] [place] [address] Care Team Providers Care Wiping Cloth Cutter Name Role Phone Savana Peter Rajani JOHNSON Primary Care Provider [phone] Abhijeet Carvajal MD Unavailable [phone] Norris Coulter MD Unavailable [phone] Fredy Foreman MD Unavailable [phone] Marv Roper Unavailable Evelyn Chavez MD Unavailable Encounter Details Date Type Department Care Team (Late st Contact Info) Description 01/16/2022 Scanned Document [facility] [address] [facility] [address] [address] Александр Yates DO [address] [place] [address] [address] [place] [address] Social History Tobacco Use Types Packs/Day Years Used Date Smoking Tobacco: Heavy Smoker Cigarettes 0.5 54.2 Started: 1972 Smokeless Tobacco: Never Alcohol Use Standard Drinks/Week [...] on filedocumented in this encounter Care Teams Wiping Cloth Cutter Relationship Specialty Start Date End Date Peter Sawant DO PCP - General Family Medicine 08/08/15 Abhijeet Carvajal MD Surgeon Neurosurgery 11/03/15 Norris Coulter MD [address] [place] [address] Consulting Physician Pulmonary Disease 11/03/15 Fredy Foreman MD [address] [place] [address] Operational Risk Analyst Cardiovascular Disease 11/03/15 Marv Roper PA [address] [place] [phone] Physician Environmental Technician Neurosurgery 11/03/15 Evelyn Chavez MD [address] [place] [phone] Consulting Physician Rheumatology 05/03/20 documented as of this encounter
--- OUTSIDE RECORDS SUMMARY | 2024-07-07 17:20 | XMS_ITS | Encounter Summary ---
Author Name [facility] [place] Organization [place] Address [address] [place] [address] Care Team Providers Care Box Closing Machine Operator Name Role Phone JAMISON FLYNN Primary Care Provider Unavailab MEERA Nunez Primary Care Provider Unavail able Insurance Providers: All historical and current Section Date Range: From patient's date of to the date document was created. This section includes the names of all active insurance providers for the patient. Insurance Provider Type of Coverage Plan Name Start of Policy Coverage End of Policy Coverage Group Number Member ID Insurance Provider's Telephone Number Policy House's Name Patient's Relationship to Policy House MEDICARE (WNR) MEDICARE (M) PART A Oct 06, 2022 PART A [id number] [phone] LOUIE VIEYRA PATIENT MEDICARE (WNR) MEDICARE (M) PART B Oct 06, 2022 PART B [id number] [phone] LOUIE VIEYRA PATIENT Selected Encounter This section includes the information on record at [place] for the Encounter. Date/Time Encounter Type Encounter Description Reason Provider Source Apr 22, 2024 01:06 PM Outpatient Encounter ADMIN PAT ACTIVTIES (MASNONCT) ESQUIVELBRITTANI TOVAR Rigo Encounter Template Text not used by [place] Plan of Treatment: Future Appointments (+ 6 months) and Future Tests (+/- 45 days) The Plan of Treatment section includes future care activities for the patient from all [place] [facility] This section includes future appointments and future orders which are active, pending or scheduled. Future Appointments This section includes appointments that were scheduled to occur 6 months from the date of the Encounter, up to a maximum of 20 appointments. The data comes from all [place] treatment facilities. Appointment Date/Time Appointment Type Appointme nt Facility Name Apr 28, 2024 01:30 PM AMBULATORY - MEDICINE [facility] Advance Directives: All historical and current Section Date Range: From patient's date of to the date document was created. This section includes ALL of a patient's completed or amended [place] Advance and Rescinded Directives. The entries below indicate that a directive exists for the patient, but an actual copy is not included with this document. The data comes from all [facility]. Date Advance Directives Provider Source Jan 09, 2018 ADVANCE DIRECTIVE DISCUSSION Corie DOBBINS [facility] Dec 28, 2014 ADVANCE DIRECTIVE DISCUSSION [facility] Encounter Notes: All associated encounter notes This section contains the clinical notes associated to the Encounter. Date/Time Encounter Note(s) Provider Source Apr 23, 2024 09:31 AM ADDENDUM: LOCAL TITLE: Addendum STANDARD TITLE: ADDENDUM DATE OF NOTE: APR 23, 2024@09:31:39 ENTRY DATE: APR 23, 2024@09:31:40 AUTHOR: JAMISON FLYNN EXP COSIGNER: URGENCY: STATUS: COMPLETED has not been seen in primary care since 06/2023. Needs to schedule PC phone appt, VVC, or F2F visit to discuss med increase. CC MSA to assist with scheduling /es/ JAMISON FLYNN, MSN, AGNP-C NURSE PRACTITIONER Signed: 04/23/2024 09:32 Receipt Acknowledged By: 04/24/2024 15:08 /ifnn/ AGUSTIN MATAMOROS ADVANCED FARM CONTRACTOR ====== --- Original Document --- 04/22/24 PHARMACY COMMUNITY CARE PRESCRIPTION PROCESSING NOTE STL: Pharmacy service received prescription(s) via: Inbound ERx ELIGIBILITY: Pharmacy service cannot accept this prescription because the patient is not CCN (Care in the Community) eligible. PRESCRIPTION INFORMATION: [facility] Information:[facility], [address], [address], [place] [address] phone: [phone] fax: [phone] 1) eRx Drug : buPROPion HCL XL 450 mg 24 hr tablet, extended release (WELLBUTRIN XL)eRx SIG : Take 1 tablet (450 mg total) by mouth every morning #90, 1 refill DOSE CHANGE FROM ACTIVE RX, PLEASE NOTE THAT WE DO NOT CARRY THIS STRENGTH TABLET. WOULD NEED 3 150MG XL TABS OR 1 150 + 1 300MG TABS FOR THIS DOSE DISPOSITION: Ineligible. Please considering prescribing the above medication(s) for the patient. If declining to prescribe, please comment and add RX to non-VA medication list. /finn/ BRITTANI ESQUIVEL PharmD [facility] Pharmacist, Pharmacy Signed: 04/22/2024 13:47 Receipt Acknowledged By: 04/23/2024 09:30 /finn/ JAMISON FLYNN, MSN, AGNP-C NURSE PRACTITIONER JAMISON FLYNN [facility] Apr 22, 2024 01:06 PM PHARMACY MEDICATIO N MGT DISCHARGE NOTE: LOCAL TITLE: PHARMACY [facility] CARE PRESCRIPTION PROCESSING NOT STANDARD TITLE: PHARMACY MEDICATION MGT DISCHARGE NOTE DATE OF NOTE: APR 22, 2024@13:06 ENTRY DATE: APR 22, 2024@13:06:54 AUTHOR: BRITTANI ESQUIVEL [facility] EXP COSIGNER: URGENCY: STATUS: COMPLETED PHARMACY [facility] CARE PRESCRIPTION PROCESSING NOTE STL Has ADDENDA Pharmacy service received prescription(s) via: Inbound ERx ELIGIBILITY: Pharmacy service cannot accept this prescription because the patient is not CCN (Care in the Community) eligible. PRESCRIPTION INFORMATION: Provider Information:[facility], [address], [address], [place] [address] phone: [phone] fax: [phone] 1) eRx Drug : buPROPion HCL XL 450 mg 24 hr tablet, extended release (WELLBUTRIN XL)eRx SIG : Take 1 tablet (450 mg total) by mouth every morning #90, 1 refill DOSE CHANGE FROM ACTIVE RX, PLEASE NOTE THAT WE DO NOT CARRY THIS STRENGTH TABLET. WOULD NEED 3 150MG XL TABS OR 1 150 + 1 300MG TABS FOR THIS DOSE DISPOSITION: Ineligible. Please considering prescribing the above medication(s) for the patient. If declining to prescribe, please comment and add RX to non-VA medication list. /finn/ BRITTANI ESQUIVEL, PharmD Community [facility] Pharmacist, Pharmacy Signed: 04/22/2024 13:47 Receipt Acknowledged By: 04/23/2024 09:30 /finn/ JAMISON FLYNN, MSN, MELISAP-C NURSE PRACTITIONER 04/23/2024 ADDENDUM STATUS: COMPLETED [place] has not been seen in primary care since 06/2023. Needs to schedule PC phone appt, VVC, or F2F visit to discuss med increase. CC MSA to assist with scheduling /finn/ JAMISON FLYNN, MSN, AGNP-C NURSE PRACTITIONER Signed: 04/23/2024 09:32 Receipt Acknowledged By: * AWAITING SIGNATURE * AGUSTIN MATAMOROS,BRITTANI TOVAR [facility]
--- OUTSIDE RECORDS SUMMARY | 2024-07-07 17:20 | XMS_ITS | Encounter Summary ---
Author Organization [facility] Address [address] [place] [address] Care Team Providers Care Formal Wear Rental Clerk Name Role Phone Peter Sawant DO Primary Care Provider [phone] Abhijeet Carvajal MD Unavailable [phone] Norris Coulter MD Unavailable [phone] Fredy Foreman MD Unavailable [phone] Marv Roper Unavailable Evelyn Chavez MD Unavailable Encounter Details Date Type Department Care Team (Late st Contact Info) Description 07/13/2015 Scanned Document [email or web address] Information Management [address] [place] [address] Physician, Scan Social History Tobacco Use Types Packs/Day Years Used Date Smoking Tobacco: Never Assessed Comments Unknown Sex and Gender Information Value Date Recorded Sex Assigned at Not on file Legal Sex Female 9:50 AM CDT Gender Identity Not on file Sexual Orientation Not on file documented as of this encounter Plan of Treatment Not on file documented as of this encounter Visit Diagnoses Not on filedocumented in this encounter Care Teams Formal Wear Rental Clerk Relationship Specialty Start Date End Date Peter Sawant DO PCP - General Family Medicine 08/08/15 Abhijeet Carvajal MD Surgeon Neurosurgery 11/03/15 Norris Coulter MD [address] [place] [id number] Consulting Physician Pulmonary Disease 11/03/15 Fredy Foreman MD [address] [place] [phone] Medical Lab Specialist Cardiovascular Disease 11/03/15 Marv Roper PA [address] [place] [address] Physician Certified Midwife Neurosurgery 11/03/15 Evelyn Chavez MD [address] [place] [address] Consulting Physician Rheumatology 05/03/20 documented as of this encounter
--- OUTSIDE RECORDS SUMMARY | 2024-07-07 17:20 | XMS_ITS | Encounter Summary ---
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 Date/Time Encounter Type Encounter Description Reason Provider Source Apr 28, 2024 01:30 PM OFFICE O/P EST LOW 20 MIN PRIMARY CARE/MEDICINE ICD-10-CM I25.10 [facility] heart disease of venetie ira coronary artery w/o SERGIO Chi Rigo Encounter Template Text not used by [place] Assessments - Encounter Diagnoses This section includes the primary and secondary diagnoses documented for the Encounter. Date/Time Primary/Secondary Diagnosis Diagnosis Name Provider Source Apr 28, 2024 02:01 PM PRIMARY [facility] heart disease of venetie ira coronary artery w/o SERGIO Chi [facility] Apr 28, 2024 02:01 PM SECONDARY Allergic rhinitis, unspecified SERGIO FLYNN [facility] Apr 28, 2024 02:01 PM SECONDARY Anxiety disorder, unspecified SERGIO FLYNN [facility] Apr 28, 2024 02:01 PM SECONDARY Chronic obstructive pulmonary disease, unspecified SERGIO FLYNN [facility] Apr 28, 2024 02:01 PM SECONDARY Chronic systolic (congestive) heart failure SERGIO FLYNN [facility] Apr 28, 2024 02:01 PM SECONDARY Essential (primary) hypertension [facility]IO FLYNN [facility] Apr 28, 2024 02:01 PM SECONDARY Hypothyroidism, unspecified SERGIO FLYNN [facility] Apr 28, 2024 02:01 PM SECONDARY Insomnia, unspecified SERGIO FLYNN [facility] Apr 28, 2024 02:01 PM SECONDARY Major depressive disorder, single episode, unspecified SERGIO FLYNN [facility] Apr 28, 2024 02:01 PM SECONDARY Obstructive sleep apnea (adult) (pediatric) SERGIO FLYNN [facility] Apr 28, 2024 02:01 PM SECONDARY Oth disrd of bone density and structure, unspecified site SERGIO FLYNN [facility] Apr 28, 2024 02:01 PM SECONDARY Tobacco use SERGIO FLYNN [facility] Social History: Smoking Status (Most current) and Tobacco Use (All prior to encounter date) This section includes the most current, and the historical, smoking and tobacco- related health factors from the [place] facility where the Encounter took place. Current Smoking Status This section includes the most current smoking, or tobacco-related health factor, from the [place] facility where the Encounter took place. Date/Time Current Smoking Status Comment Harinder Carmona 01, 2024 12:30 PM VA-TOBACCO USER EVERY DAY [facility] Tobacco Use History This section includes a history of the smoking, or tobacco-related health factors, that were collected on or before the date of the Encounter. The data comes from the [place] facility where the Encounter took place. Date/Time Smoking Status/Tobacco Use Comment F acility Jun 07, 2023 12:30 PM VA-TOBACCO USE ADVICE [facility] Jun 07, 2023 12:30 PM VA-TOBACCO USE MANAGER SOLUTION NO [facility] Jun 07, 2023 12:30 PM VA-TOBACCO USE MED NO [facility] Jun 07, 2023 12:30 PM VA-TOBACCO USE [place] 30 MIN OF WAKE UP [facility] Jun 07, 2023 12:30 PM VA-TOBACCO USER EVERY DAY [facility] Advance Directives: All historical and current Section Date Range: From patient's date of to the date document was created. This section includes ALL of a patient's completed or amended [place] Advance and Rescinded Directives. The entries below indicate that a directive exists for the patient, but an actual copy is not included with this document. The data comes from all [place] facilities. Date Advance Directives Provider Source Jan 09, 2018 ADVANCE DIRECTIVE DISCUSSION [facility] Dec 28, 2014 ADVANCE DIRECTIVE DISCUSSION Corie DOBBINS [facility] Encounter Notes: All associated encounter notes This section contains the clinical notes associated to the Encounter. Date/Time Encounter Note(s) Provider Source Apr 28, 2024 01:31 PM TELEHEALTH NOTE: LOCAL TITLE: PRIMARY CARE VIDEO CONNECT [facility] STANDARD TITLE: TELEHEALTH NOTE DATE OF NOTE: APR 28, 2024@13:31 ENTRY DATE: APR 28, 2024@13:31:55 AUTHOR: JAMISON FLYNN EXP COSIGNER: URGENCY: STATUS: COMPLETED Medicine Provider Note Modality of Care: Clinical Video Telehealth Visit conducted by Clinical Video Telehealth. Patient/surrogate provided verbal consent for video telehealth. Patient location confirmed. Emergency number confirmed. Patient Contact Details: Best contact number for backup communication with patient: Patient Phone: Other: [facility] Informed Consent: Group Telehealth Agreement Form and Confidentiality, Risks and Consequences, Privacy, Dignity and Behavior, was reviewed and participants orally consented to those conditions to participate in this [facility] Group Visit. CLASS: Whole Health Pathway Orientation Chief Complaint: Follow up History of Present Illness: 64 y/o male who was contacted for the scheduled [facility] visit. The purpose of the visit today is to follow up on the chronic medical conditions mentioned below. Last PCP visit: 06/07/2023 Community Providers: - PCP Dr. Ever Marx, [facility] - Director Of Supply Chain Dr. Barros, [facility] - Senior Manufacturing Test Engineer: cannot recall name of provider. F/U for COPD/ALICIA ENGROSSER H/O partial hysterectomy w/ bilateral oophorectomy due uterine fibroids CAD. H/O CABG. Denies anginal complaints. Tobacco use. Quit in 2010 following [place]. Started smoking again in 2012 after her mother passed. She has been smoking since. She cannot use nicotine patches because of an adhesive allergy. Does not want to try hypnosis. No success with using nicotine lozenges in the past. Cannot chew nicotine gum due to dentures. Smokes 1.5-2PPD. HFpEF. TTE 04/15/2023 reviewed in [facility]. LVEF 60-65%, Moderate Pulm HTN PASP 49-53. Home BP readings: Ave 120/70's. Anxiety/MDD. was seen by her outside PCP. Reported complaints of worsening anxiety and tobacco use. Her provider recommended increasing the dose of her bupropion to 450mg/day. She would like to receive the medication from the [place]. After discussion with the clinical pharmacist there is concerns with D-D interactions with the higher dose of bupropion and duloxetine 60mg BID. SOURCE(S) OF HISTORY: -Patient, [facility] PAST MEDICAL HISTORY: 1) CAD - Coronary Artery Disease (SCT [id number]) comment: H/O CABG 2) HTN - Hypertension (SCT 37176341) 3) Hypothyroidism ([facility]CT [id number]) 4) COPD - Chronic Obstructive Pulmonary Disease ([facility] [id number]) 5) Major depressive disorder 6) Insomnia 7) Anxiety 8) Obstructive Sleep Apnea of Adult (SCT [id number]) 9) Tobacco User ([facility] [id number]) 10) Allergic Rhinitis ([facility] [id number]) SURGICAL HISTORY: Cholecystectomy CABG Hysterectomy Cervical fusion C3 & C4 (1991) Cervical fusion C5, & C6 (01/2010) FAMILY MEDICAL HISTORY: Paternal Aunt: Brain and uterine cancer PGM: stomach cancer MGM: colon cancer Sister: breast cancer Maternal Aunt: COPD SOCIAL HISTORY: Nicotine: smokes 1PPD x > 30 years Alcohol: consumes one drink per year Illicit Drugs: denies Allergy: NICOTINE PATCH, ADHESIVES, [place], [place] POLLEN, ZOLPIDEM ATORVASTATIN, CECLOR, INFLUENZA Allergy list reviewed and remains current. MEDICATIONS: Active Outpatient Medications (including Supplies): Active Outpatient Medications Status 1) BUPROPION HCL 300MG 24HR SA TAB TAKE ONE TABLET BY MOUTH HOLD ONCE A DAY SWALLOW WHOLE - DO NOT CRUSH OR CHEW. Indication: FOR DEPRESSION 2) DULOXETINE HCL 60MG EC CAP TAKE ONE CAPSULE BY MOUTH TWICE A ACTIVE (S) DAY DO NOT ABRUPTLY DISCONTINUE MEDICATION. Indication: FOR DEPRESSION 3) TRAZODONE HCL 100MG TAB TAKE ONE TABLET BY MOUTH AT BEDTIME ACTIVE NEEDED Indication: FOR INSOMNIA MEDICATION RECONCILIATION: completed REVIEW OF SYSTEMS: See HPI for further details of positive complaints. All 10 systems reviewed and otherwise negative. Most Recent Vital Signs: VITALS (most recent, as listed in the electronic record): Temperature: 97.8 F [36.6 C] (06/07/2023 12:04) BP: 106/55 (06/07/2023 12:04) Pulse: 66 (06/07/2023 12:04) Resp: 18 (06/07/2023 12:04) PulsOx: 92% (06/07/2023 12:04) Pain: 4 (06/07/2023 12:04) Weight: Measurement DT WEIGHT LB(KG)[BMI] 06/07/2023 12:04 175.4(79.56)[30*] Physical Exam General: Alert & oriented X 3 Not in acute distress HEENT - moist mucous membranes NECK - supple CHEST - Symmetrical rise and fall of chest Abdomen - normal contour Psych: Appropriate mood and affect LABS: Last A1C: HGA1C 5.6 % 06/07/2023 13:00 Lipid Panel: TRIGLYCERIDE 107 mg/dL 06/07/2023 13:00 CHOLESTEROL 146 mg/dL 06/07/2023 13:00 HDL(New) 55 mg/dL 06/07/2023 13:00 CALCULATED LDL 70 mg/dL 06/07/2023 13:00 CMP: SODIUM 142 mEq/L 06/07/2023 13:00 POTASSIUM 3.7 mEq/L 06/07/2023 13:00 CHLORIDE 105 mEq/L 06/07/2023 13:00 UREA NITROGEN 15.6 mg/dL 06/07/2023 13:00 CREATININE 1.04 mg/dL 06/07/2023 13:00 CALCIUM 9.7 mg/dL 06/07/2023 13:00 PROTEIN 6.7 g/dL 06/07/2023 13:00 ALBUMIN 4.1 g/dL 06/07/2023 13:00 ALKALINE PHOSPHATASE 97 U/L 06/07/2023 13:00 ALT/SGPT 14 U/L 06/07/2023 13:00 AST/SGOT 15 U/L 06/07/2023 13:00 TOTAL BILIRUBIN 0.6 mg/dL 06/07/2023 13:00 CARBON DIOXIDE 26 mEq/L 06/07/2023 13:00 GLUCOSE 97 mg/dL 06/07/2023 13:00 EGFR (CKD-EPI 2020) 59.7 06/07/2023 13:00 CBC: WBC 7.0 10*3/uL 06/07/2023 13:00 RBC 4.76 10*6/uL 06/07/2023 13:00 HGB 12.9 g/dL 06/07/2023 13:00 HCT 39.7 % 06/07/2023 13:00 MCV 83.4 fL 06/07/2023 13:00 MCH 27.1 pg 06/07/2023 13:00 MCHC 32.5 L g/dL 06/07/2023 13:00 RDW 12.6 % 06/07/2023 13:00 PLT 220 10*3/uL 06/07/2023 13:00 MPV 9.6 fL 06/07/2023 13:00 NEUTROPHILS, AUTO % 64 % 06/07/2023 13:00 LYMPHOCYTES, AUTO % 27 % 06/07/2023 13:00 MONOCYTES, AUTO % 7 % 06/07/2023 13:00 EOSINOPHILS, AUTO % 2 % 06/07/2023 13:00 BASOPHILS, AUTO % 1 % 06/07/2023 13:00 NEUTROPHILS, ABSOLUTE 4.48 10*3/uL 06/07/2023 13:00 LYMPHOCYTES, ABSOLUTE 1.86 10*3/uL 06/07/2023 13:00 MONOCYTES, ABSOLUTE 0.47 10*3/uL 06/07/2023 13:00 EOSINOPHILS, ABSOLUTE 0.16 10*3/uL 06/07/2023 13:00 BASOPHILS, ABSOLUTE 0.05 10*3/uL 06/07/2023 13:00 TSH: TSH 0.171 L uIU/mL 06/07/2023 13:00 Free T4 Collection DT Specimen Test Name Result Units Ref Range 06/07/2023 13:00 SERUM FREE T4(REFLEX) 1.55 H ng/mL 0.7 - 1.48 Micral: CREATuF: 222.3 (06/07/23 13:00) M/CREAT: 12 (06/07/23 13:00) MICRAL: 25.6 (06/07/23 13:00) Assessment/Plan: # MDD/Anxiety/Insomnia: - Continue Cymbalta, Trazodone, and Wellbutrin XL 300mg/day. - Denies SI, low risk for self-harm. Denies additional MH needs. # Hypothyroidism: - Last TSH below Tx goal. Levothyroxine 150mcg modified my outside PCP. # CAD/HTN/HFpEF: - Managed by outside Director Of Supply Chain. Denies anginal complaints. BP controlled. - Continue carvedilol 25mg BID, rosuvastatin 10mg, clopidogrel 75mg, losartan 100mg, nisoldipine 17mg, clonidine 0.1mg, isosorbide 30mg, HCTZ 14.5mg 75mg. Stopped ASA due to GI bleed # Allergic Rhinitis: - Symptoms stable on Montelukast and azelastine spray # COPD: - Severe COPD noted per PFT in 03/2024. Managed by outside Senior Manufacturing Test Engineer. - Continue current inhaler regimen - Contact the clinic with symptoms of worsening SOB, cough, or wheezing. # ALICIA: - Last sleep study completed in 2010 - Using supplemental oxygen 2L HS per directed of her outside Senior Manufacturing Test Engineer. # Tobacco use: - Declined additional resources for smoking cessation. Continue bupropion. # Osteopenia: - Repeat DEXA in 2026. Continue Calcium + Vitamin D supplement - Continue weight bearing exercise HM: Cervical cancer screening: Breast cancer screening: mammo 10/21/23, BiRADS 2. Negative. Record in [facility] Colorectal cancer screening: Last completed: 10/2020, normal colon, repeat 10 years. Record in [facility] Due: 10/2030 Lung cancer screening: Eligibility: LDLCT completed 10/20/2024, 0.6cm [place] nodule. Repeat 6m. Scheduled 05/04/2024. AAA Screening: Eligibility: Never smoked DEXA scan: Completed 10/21/2023, osteopenia. Record in [facility]. Repeat 2025 ADMINISTERED Immunization Series Date Facility Reaction Info TDAP 01/05/2019 No Site REFUSED ======= Immunization Date Facility Info INFLUENZA, UNSPECIFIED FORMULATI* 06/07/2023 [facility]* <I> PNEUMOCOCCAL CONJUGATE, UNSPECIF* 06/07/2023 [facility]* <I> TDAP 06/07/2023 [facility]* <I> ZOSTER RECOMBINANT 06/07/2023 [facility]* <I> Suicide Risk: Patient was assessed for risk to self or others. Patient denies thoughts of self or other harm; and reports no access to means of self or other harm. [place] Crisis Line information provided to patient and press #1 for [place], text to [phone], or chat online at [employer]/chat Follow-Up: f2f visit 1 year or sooner PRN Plan of care has been discussed with including expected therapeutic benefits and potential side effects of prescribed medications and treatments. Current medication list has been reconciled with and updated accordingly. was instructed to keep all scheduled appointments and to contact condominium association manager for any additional problems. [place] verbalizes understanding and is in agreement with the plan of care. Influenza Immunization - L,N,P,PH,U: Deferral / Refusal The patient declines to receive the recommended dose of seasonal influenza vaccine. Immunization: INFLUENZA, UNSPECIFIED FORMULATION Refusal Reason: PATIENT DECISION Patient refuses all immunization(s) in the FLU group Date Documented: 04/28/24 13:56 COVID-19 Immunization - L,N,P,PH,U: Refused Pfizer Monovalent COVID-19 vaccine Immunization: COVID-19 (PFIZER), MRNA, LNP-S, PF, WICHO-SUCROSE, 30 MCG/0.3 ML (AGES 12+ YEARS) Refusal Reason: PATIENT DECISION Patient refuses all immunization(s) in the COVID-19 group Date Documented: 04/28/24 13:56 Mammogram Screening: Record prior or outside mammogram: Written Report Available Outside report Received on: April 28, 2024 Mammogram Screening Date of procedure: October 21, 2023 The patient has dense breast tissue. Interpretation of results and decision making Summary of results: BIRAD 2: Radiologist recommends the following: Return for screening mammogram in one year Method patient contacted by: Patient already notified/not needed Comment: by outside PCP Additional Information: Avg Risk Colorectal Cancer Screen - L,N,P,PH: AVERAGE RISK colorectal cancer screening is due based on information available to this clinical reminder Prior/outside colonoscopy results: normal colon Date: October 20, 2020 Average risk screening reminder set 6 years from APR 28, 2024. /finn/ JAMISON FLYNN, MSN, AGNP-C NURSE PRACTITIONER Signed: 04/29/2024 10:37 JAMISON FLYNN [facility]
--- OUTSIDE RECORDS SUMMARY | 2024-07-07 17:20 | XMS_ITS | Encounter Summary ---
Author Organization [facility] Address [address] [place] [address] Care Team Providers Care Backrest Assembler Name Role Phone SavanaPeter eckert Primary Care Provider [phone] Abhijeet Carvajal MD Unavailable [phone] Norris Coulter MD Unavailable [phone] Fredy Foreman MD Unavailable [phone] Marv Roper Unavailable Evelyn Chavez MD Unavailable Reason for Referral * Diagnostic Imaging (Emergency) - Closed Specialty Diagnoses / Procedures Referred By Conttoshia t Referred To Contact Diagnoses Bilateral carpal tunnel syndrome Ulnar neuropathy of left upper extremity Other osteoarthritis of spine, cervical region Procedures ECG 12 lead Abhijeet Carvajal MD Phone: tel: fax: Referral ID Status Reason Start Date Expiration Date Visits Re quested Visits Authorized [id number] Closed 04/12/2016 04/12/[address] MARKETING SPECIALIST Encounter Details Date Type Department Care Team (Latest Contact Info) Description 04/12/2016 Prep for [facility] [address], [address] [place] [address] Abhijeet Carvajal MD [address] [address] [place] [address] Bilateral carpal tunnel syndrome (Primary Dx); Ulnar neuropathy of left upper extremity; Other osteoarthritis of spine, cervical region Social History Tobacco Use Types Packs/Day Years [...] on file documented as of this encounter H&P Notes * Abhijeet Carvajal MD - 04/12/2016 2:35 PM CST Images from the original note were not included. Chief Complaint Patient presents with ??? Follow-up ??? Neck Pain ??? Hand Pain ? HPI Comments: Mrs. Ted Salcedo comes in today for a follow-up of her continued bilateral hand numbness and tingling and asleep like sensation she has in her hands as well as achiness and pain. Since her last visit we have asked for a diagnosis of grade to include bilateral carpal tunnel syndrome as well as left ulnar nerve palsy. She continues to have symptoms that are consistent with carpal tunnel and with ulnar nerve palsy on the left and is wanting to move forward with a carpal tunnel release of her right hand initially then followed by left hand release with ulnar nerve release at thesame time. At this point she is retired is no longer working. ?? Neck Pain Hand Pain ? Review of Systems Musculoskeletal: Positive for neck pain. Constitutional: Positive for fatigue. ?? Bleeding tendency HENT: Positive for hearing loss, sinus pressure and tinnitus. Eyes: ?? Glasses/contacts Respiratory: Positive for shortness of breath. Musculoskeletal: Positive for back pain and joint swelling. ?? Muscle cramp/spasm Neurological: Positive for weakness. Psychiatric/Behavioral: Positive for sleep disturbance. ?? Depression ? Objective Physical Exam Neurological: GENERAL APPEARANCE: Alert, [...] EVALUATION: normal affect. No depression or anxiety. Her right hand and wrist demonstrated positive Tinel sign with just slight percussion of her wrist.Her left hand is also positive Tinel's with more moderate to heavy or compression and tapping. She has a positive Tinel at the left elbow just proximal to the medial epicondyle I'll. She has a positive Phalen sign on the right hand with 45 seconds of compressive wrist flexion. There also appears db mild thenar eminence wasting on the right. ?? I Assessment/Plan: ? Diagnosis Plan 1. Bilateral carpal tunnel syndrome Ambulatory referral to Occupational Medicine 2. Ulnar neuropathy of left upper extremity Ambulatory referral to Occupational Medicine 3. Other osteoarthritis of spine, cervical region Ambulatory referral to Occupational Medicine ? No orders of the defined types were placed in this encounter. ? At this time we asked for her diagnosis to include bilateral carpal tunnel syndrome and left ulnar nerve palsy at the elbow. Once this is approved as diagnosis we would then offer a right carpal tunnel release followed by a left carpal tunnel and cubital tunnel release. In the meantime she is to remain TT D. This patient was seen in conjunction with Dr. Abhijeet Carvajal who agrees with the above assessment and plan. I declare under penalty of perjury that I have examined this report and all statements contained herein into the best of my knowledge and belief they are true, correct and complete. CT MARKETING SPECIALIST documented in this encounter Plan of Treatment Not on file documented as of this encounter Results * (ABNORMAL) Urinalysis, Complete W/Reflex To Culture (04/19/2016 10:30 AM DIRECT MARKETING SPECIALIST) Urine Color YELLOW YELLOW [facility] Urine Clarity [facility] U Specific [place] 1.013 1.001 - 1.035 [facility] Urine pH 6.5 5.0 - 8.0 pH [facility] U Leukocyte Esterase Negative Negative [facility] U Nitrite Negative NEGATIVE [facility] U Glucose Negative Negative mg/dL [facility] U Protein Negative Negative [facility] U Ketone Negative Negative [facility] U Bilirubin Negative Negative [facility] Comment:Any Positive Urine B ilirubin must be confirmed by an Ictotest and is automatically reflexed. See Ictotest results for confirmation. U Blood Negative Negative [facility] U RBC/hpf None Seen None Seen [facility] U WBC/hpf None Seen None Seen [facility] U Bacteria Few(A) None Seen [facility] U Epithelial Cells 0-5 /hpf None Seen [facility] Urine specimen (specimen) 04/19/2016 10:30 AM DIRECT MARKETING SPECIALIST 04/19/2016 11:29 AM DIRECT MARKETING SPECIALIST Narrative [facility] - 04/19/2016 12:22 PM DIRECT MARKETING SPECIALIST Specimen Source:->Urine, Clean Catch us Abhijeet Carvajal MD LAB URINE ORDERABLES Final Resu lt [facility] [address] [place] [address] * (ABNORMAL) Basic Metabolic Panel (04/19/2016 10:25 AM DIRECT MARKETING SPECIALIST) Sodium 146 135 - 146 mmol/L [facility] Potassium, Serum 4.2 3.5 - 5.3 mmol/L [facility] Chloride 108 98 - 110 mmol/L [facility] Carbon Dioxide Level 32(H) 18 - 30 mmol/L [facility] Glucose Level 85 65 - 99 mg/dL [facility] Blood Urea Nitrogen 14 7 - 25 mg/dL [facility] Creatinine 0.8 0.5 - 1.2 mg/dL [facility] Calcium Level 9.8 8.5 - 10.4 mg/dL [facility] BUN/Creatinine Ratio 17.9 6.0 - 25.0 (calc) [facility] Anion Gap-Calculated 6 4 - 16 mmol/L [facility] Osmolality (Calculated) 301.7 273.0 - 304.0 mOsmol [facility] Blood specimen (specimen) Venous blood specimen / Unknown 04/19/2016 10:25 AM DIRECT MARKETING SPECIALIST 04/19/2016 11:12 AM DIRECT MARKETING SPECIALIST Narrative [facility] - 04/19/2016 11:43 AM DIRECT MARKETING SPECIALIST Specimen Type->Blood us Abhijeet Carvajal MD LAB BLOOD ORDERABLES Final Resu lt [facility] [address] [place] [address] * (ABNORMAL) CBC (04/19/2016 10:25 AM DIRECT MARKETING SPECIALIST) WBC 6.7 3.8 - 10.8 X 10^3/uL [facility] Red Blood Cell Count 5.22(H) 3.80 - 5.10 x 10^6/uL [facility] Hemoglobin 14.6 11.7 - 15.5 g/dL [facility] Hematocrit 43.5 35.0 - 45.0 % [facility] Mean Cell Volume 83.3 80.0 - 100.0 fL [facility] Mean Cell Hemoglobin 28.0 27.0 - 33.0 pg [facility] Mean Cell Hemoglobin Concentration 33.6 32.0 - 36.0 g/dL [facility] RDW 13.0 11.0 - 15.0 % [facility] Platelet Count 223 140 - 400 X 10^3/uL [facility] Mean Platelet Volume 7.0(L) 7.5 - 11.5 fL [facility] Neutrophils 49.8 % [facility] Lymphocytes 35.1 % [facility] Monocytes. 9.1 % [facility] Eosinophils 5.0 % [facility] Basophils 1.0 % [facility] Absolute Neutrophils 3.400 1.500 - 7.800 X 10^3/uL [facility] Absolute Lymphocytes. 2.400 0.850 - 3.900 X 10^3/uL [facility] Absolute Monocytes 0.600 0.200 - 0.950 X 10^3/uL [facility] Absolute Eosinophils 0.300 0.015 - 0.500 X 10^3/uL [facility] Absolute Basophils 0.100 0.000 - 0.200 X 10^3/uL [facility] Absolute Nucleated RBC 0.000 X 10^3/uL [facility] Reviewed Differential NOT INDICATED [facility] Blood specimen (specimen) Venous blood specimen / Unknown 04/19/2016 10:25 AM DIRECT MARKETING SPECIALIST 04/19/2016 11:12 AM DIRECT MARKETING SPECIALIST Narrative [facility] - 04/19/2016 11:23 AM DIRECT MARKETING SPECIALIST Specimen Source:->Blood, Venous us Abhijeet Carvajal MD LAB BLOOD ORDERABLES Final Resu lt [facility] [address] [place] [address] * ECG 12 lead (04/19/2016 9:53 AM DIRECT MARKETING SPECIALIST) Patient Height (In) in TRACEMASTER Heart Rate ECG 56 bpm TRACEMASTER RR Interval ECG 1,071 ms TRACEMASTER Atrial Rate ECG 58 ms TRACEMASTER WV Interval 180 ms TRACEMASTER P Duration 192 ms TRACEMASTER P Horizontal [place] ECG 3 deg TRACEMASTER P Front [place] ECG 77 deg TRACEMASTER Q Onset ECG 512 ms TRACEMASTER QRSD Interval 82 ms TRACEMASTER QT Interval 456 ms TRACEMASTER QTcB ECG 441 ms TRACEMASTER QTcF ECG 446 ms TRACEMASTER QRS Horizontal [place] ECG -16 deg TRACEMASTER QRS [place] ECG 61 deg TRACEMASTER I-40 Horizontal [place] ECG 11 deg TRACEMASTER I-40 Front [place] ECG 61 deg TRACEMASTER T-40 Horizontal [place] ECG -63 deg TRACEMASTER T-40 Front [place] ECG 82 deg TRACEMASTER T Horizontal [place] ECG 37 deg TRACEMASTER T Wave [place] -[address] Horizontal [place] ECG deg TRACEMASTER ST Front [place] ECG -49 deg TRACEMASTER 04/19/2016 9:53 AM DIRECT MARKETING SPECIALIST Impressions TRACEMASTER - 04/24/2016 6:01 PM DIRECT MARKETING SPECIALIST - NORMAL ECG - SINUS RHYTHM Narrative Procedure Note Saleem Ramires MD - 04/24/2016 IMPRESSION: - NORMAL ECG - SINUS RHYTHM us Abhijeet Carvajal MD ECG ORDERABLES Final Result MELINDA documented in this encounter Visit Diagnoses Diagnosis Bilateral carpal tunnel syndrome- Primary Carpal tunnel syndrome Ulnar neuropathy of left upper extremity Other osteoarthritis of spine, cervical region documented in this encounter Care Teams Backrest Assembler Relationship Specialty Start Date End Date Peter Sawant DO PCP - General Family Medicine 08/08/15 Abhijeet Carvajal MD Surgeon Neurosurgery 11/03/15 Norris Coulter MD [address] [place] [phone] Consulting Physician Pulmonary Disease 11/03/15 Fredy Foreman MD [address] [place] [phone] Director Of Database Marketing Cardiovascular Disease 11/03/15 Marv Roper PA [address] [place] [phone] Physician Dress Draper Neurosurgery 11/03/15 Evelyn Chavez MD [address] [place] [phone] Consulting Physician Rheumatology 05/03/20 documented as of this encounter
--- OUTSIDE RECORDS SUMMARY | 2024-07-07 17:20 | XMS_ITS | Encounter Summary ---
Author Organization [facility] Address [address] [place] [address] Care Team Providers Care Conductor Road Freight Name Role Phone Peter Sawant DO Primary Care Provider [phone] Abhijeet Carvajal MD Unavailable [phone] Norris Coulter MD Unavailable [phone] Fredy Foreman MD Unavailable [phone] Marv Roper Unavailable Evelyn Chavez MD Unavailable Encounter Details Date Type Department Care Team (Late st Contact Info) Description 03/15/2016 Scanned Document [facility] Spine [facility] Neurological Surgery [address] [place], [place] [id number] Abhijeet Carvajal MD [address] [place], [place] [id number] Social History Tobacco Use Types Packs/Day Years [...] on filedocumented in this encounter Care Teams Conductor Road Freight Relationship Specialty Start Date End Date Peter SawantDO PCP - General Family Medicine 08/08/15 Abhijeet Carvajal MD Surgeon Neurosurgery 11/03/15 Norris Coulter MD [address] [place] [address] Consulting Physician Pulmonary Disease 11/03/15 Fredy Foreman MD [address] [place] [address] Manager Ent Cardiovascular Disease 11/03/15 Marv Roper PA [address] [place] [address] Physician Graining Press Operator Neurosurgery 11/03/15 Evelyn Chavez MD [address] [place] [phone] Consulting Physician Rheumatology 05/03/20 documented as of this encounter
--- OUTSIDE RECORDS SUMMARY | 2024-07-07 17:20 | XMS_ITS | Clinical Summary ---
Author Organization [facility] Address [address] [place] [address] Care Team Providers Care Ehr Trainer Name Role Phone Peter Sawant DO Primary Care Provider [phone] Peter Sawant DO Unavailable [phone] Source Comments [facility],non-owned Affiliates and Associated Physician Practices is amultiple site organization consisting of ambulatory clinics and hospital sitesin [place], [place], [place] and [place]. This disclosure is being madepursuant to the Care Everywhere program and may not contain all information available regarding this patient. Last updated 17.[facility] Allergies Active Allergy Reactions Criticality Noted Date Comments Amlodipine Base Other 06/21/2021 Atorvastatin Myalgias,Other Low 03/15/2011 Myalgia Other reaction(s): Muscle Pain Cefaclor Rash Medium 01/26/2021 Cyclobenzaprine Rash Medium 01/26/2021 Lisinopril Cough,Diarrhea,GI Discomfort,Other Low 12/13/2010 diarrhea Clopidogrel Other 12/26/2020 Bleeding ulcer Zolpidem Other 03/02/2015 Medications * Be aware that medications may not be up to date on this document. Alwaysverify current medications with the patient. Medication Sig Dispensed Refills Start Date End Date Status thiamine (VITAMIN B-1) 100 MG tabletIndications:T hiamine Deficiency Take 100 mg by mouth once daily Reasons: Deficiency of Vitamin B1 Active vitamin D3 (CHOLECALCIFEROL) 10 MCG (400 UNIT) tabletIndications:O steoporosis,125 mcg Take 125 mcg by mouth once daily Reasons: Osteoporosis, 125 mcg Active Probiotic Product (PROBIOTIC-10 PO) Active traZODone (DESYREL) 100 MG tabletIndications:I nsomnia Take 100 mg by mouth nightly as needed for Insomnia Reasons: Trouble Sleeping Active cloNIDine (CATAPRES) 0.1 MG tabletIndications:H ypertension Take 0.1 mg by mouth 3 times daily as needed TID PRN for systolic BP greater than 160. Reasons: High Blood Pressure Disorder Active metoprolol succinate XL 24hr (TOPROL XL) 25 MG tabletIndications:H ypertension Take 25 mg by mouth once daily Reasons: High Blood Pressure Disorder Active DULoxetine (CYMBALTA) 60 MG capsuleIndications: Major Depressive Disorder Take 120 mg by mouth once daily Reasons: Major Depressive Disorder Active tiZANidine (ZANAFLEX) 2 MG tabletIndications:M uscle Spasticity Take 2 mg by mouth every 8 hours as needed for Muscle Spasms Reasons: Muscle Spasticity Active buPROPion XL 24hr (WELLBUTRIN-XL) 300 MG tablet 09/27/2020 Active carvedilol (COREG) 25 MG tablet 12/20/2020 Active losartan (COZAAR) 100 MG tablet 11/01/2020 Active nisoldipine CR 24hr (SULAR) 17 MG 11/01/2020 Active rosuvastatin (CRESTOR) 10 MG tablet 12/20/2020 Active nitroGLYCERIN (NITROSTAT) 0.4 MG tablet 06/30/2020 Active tiotropium (SPIRIVA RESPIMAT) 2.5 MCG/ACT inhaler Inhale 1 puff by mouth Active azelastine (ASTELIN) 0.1 % nasal spray [place] 1 spray into the nose Active hydroCHLOROthiazide (HYDRODIURIL) 12.5 MG Take 12.5 mg by mouth once daily Active albuterol-ipratropi um (DUO-NEB) 0.5-2.5 (3) MG/3ML nebulizer solution Inhale 3 mL by mouth every 6 hours as needed for Shortness of Breath or Wheezing 75 mL 5 06/21/2021 Active clotrimazole-betame thasone (LOTRISONE) 1-0.05 % cream APPLY TO AFFECTED AREA 2 TIMES DAILY FOR 14 DAYS 45 g 1 09/20/2021 Active albuterol HFA (Proventil; Ventolin; Proair) 108 (90 Base) MCG/ACT inhaler INHALE 2 PUFFS INTO THE LUNGS EVERY 6 HOURS NEEDED. 8 g 5 01/16/2022 Active levothyroxine (Synthroid) 150 MCG tablet Take 1 (one) tablet by mouth once daily 90 tablet 3 01/16/2022 Active clopidogrel (plaVIX) 75 MG tablet TAKE 1 TABLET BY MOUTH EVERY DAY 90 tablet 1 03/19/2022 Active montelukast (Singulair) 10 MG tabletIndications:S easonal Allergic Rhinitis TAKE 1 (ONE) TABLET BY MOUTH AT BEDTIME PATIENT NEEDS APPOINTMENT REASONS: HAYFEVER 30 tablet 08/28/2022 Active Active Problems Problem Noted Date Diagnosed Date End-stage renal disease 06/21/2021 Rheumatoid arthritis involvi ng multiple sites with positive rheumatoid factor 06/21/2021 Chronic obstructive pulmonary disease 06/21/2021 Rectal bleeding 10/04/2020 HTN (hypertension) Depression Hyperlipidemia Immunizations Name Administration Dates Next Due Covid Moderna primary monova lent 12+ yr 0.5mL 07/07/2020,07/07/2020,06/09/2020,2020 PNEUMOCOCCAL PPSV23 06/07/2011 TD VACCINE 06/06/2010,03/29/2004 Social History Tobacco Use Types Packs/Day Years Used Date Smoking Tobacco: Every Day Cigarettes Smokeless Tobacco: Never Alcohol Use Standard Drinks/Week Comments Never 0 (1 standard drink = 0.6 oz pur e alcohol) PHQ-2 Answer Date Recorded PHQ2 TOTAL SCORE 0 01/16/2022 Sex and Gender Information Value Date Recorded Sex Assigned at Not on file Gender Identity Not on file Sexual Orientation Not on file Last Filed Vital Signs Vital Sign Reading Time Taken Comments Blood Pressure 143/82 01/16/2022 10:47 AM CDT Pulse 75 01/16/2022 10:47 AM CDT Temperature 36.2 C (97.2 F) 06/21/2021 10:10 AM CDT Respiratory Rate 16 10/20/2020 11:16 AM CDT Oxygen Saturation 92% 01/16/2022 10:47 AM CDT Inhaled Oxygen Concentration - - Weight 73.5 kg (162 lb) 01/16/2022 10:47 AM CDT Height 162.6 cm (5' 4 ) 01/16/2022 10:47 AM CDT Body Mass Index 27.81 01/16/2022 10:47 AM CDT Plan of Treatment Health Maintenance Due Date Last Done Comments BONE DENSITY TESTING 1960 COLOGUARD (AGES 45-75) - COLON CA SCREENING 1958 CT COLONOGRAPHY - COLON CA SCREENING 1960 FIT - COLON CA SCREENING 1960 FLEX SIG - COLON CA SCREENING 1960 MAMMOGRAM 1960 HEPATITIS C SCREENING 01/21/1976 ZOSTER VACCINE (1 of 2) 01/26/2008 PNEUMOCOCCAL VACCINE 50+ (2 of 2 - PCV) 06/06/2012 06/07/2011 Respiratory Syncytial Virus (RSV) Vaccine Pt: or over 60 yrs (1 - Risk 60-74 years 1-dose series) 2018 DTAP/TDAP/TD VACCINES (3 - Td or Tdap) 06/06/2020 06/06/2010, 03/29/2004 COVID-19 VACCINE ( season) 2023 07/07/2020, 07/07/2020, 06/09/2020, Additional history exists SCREENING FOR DIABETES 12/27/2023 , 12/26/2020, 10/04/2020 DEPRESSION SCREENING 04/08/2024 01/16/2022 INFLUENZA VACCINE (Season Ended) 2024 COLON MONITORING 10/20/2030 10/20/2020 COLONOSCOPY - COLON CA SCREENING 10/20/2030 10/20/2020 Colorectal Cancer Screening 10/20/2030 HEPATITIS B VACCINE Aged Out No longe r eligible based on patient's age to complete this topic HIB VACCINE Aged Out No longer eligi ble based on patient's age to complete this topic HPV VACCINE Aged Out No longer eligi ble based on patient's age to complete this topic MENINGOCOCCAL (Group B) VACCINE SHARED DECISION-MAKING Aged Out No longer eligible based on patient's age to complete this topic MENINGOCOCCAL GROUPS A/C/Y/W VACCINE Aged Out No longer eligible based on patient's age to complete this topic Procedures Procedure Name Priority Date/Time Associated Diagnosis Comments HEMOGLOBIN A1C Routine 12/26/2020 12:03 PM CDT Hypothyroidism, unspecified type Routine physical examination Hyperlipidemia, unspecified hyperlipidemia type Hypertension, essential from Last 3 Months or Most Recently Relevant to Health Maintenance Results * HEMOGLOBIN A1C (12/26/2020 12:03 PM CDT) Hemoglobin A1c 5.5 4.0 - 5.6 % 12/26/2020 4:43 PM CDT [facility] Estimated Average Glucose 111 mg/dL 12/26/2020 4:43 PM CDT [facility] Blood BLOOD SPECIMEN / Unknown Venipuncture / Unknown 12/26/2020 12:03 PM CDT 12/26/2020 12:03 PM CDT Peter Sawant DO LAB - CHEMISTRY [facility]ER [facility] [place] Organization Address City/State/ZIP Co de Phone Number [facility] [address] [place], [place] [phone] [place] [address] from Last 3 Months or Most Recently Relevant to Health Maintenance Advance Directives * Full Code (Latest Code Status on File) Date Activated Date Inactivated Comments 10/04/2020 5:31 AM 10/04/2020 7:08 PM Care Teams Ehr Trainer Relationship Specialty Start Date End Date Peter Sawant DO PCP - General Family Medicine 12/21/20 Peter Sawant DO Family Medicine 12/21/20
--- OUTSIDE RECORDS SUMMARY | 2024-07-07 17:20 | XMS_ITS | Encounter Summary ---
Author Organization [facility] Address [address] [place] [address] Care Team Providers Care President Financial Institution Name Role Phone Peter Sawant DO Primary Care Provider [phone] Abhijeet Carvajal MD Unavailable [phone] Norris Coulter MD Unavailable [phone] Fredy Foreman MD Unavailable [phone] Marv Roper Unavailable Evelyn Chavez MD Unavailable Encounter Details Date Type Department Care Team (Late st Contact Info) Description 02/14/2016 Scanned Document [facility] Spine and Neurological Surgery [address] [place], [place] [id number] Abhijeet Carvajal MD [address] [place], [place] [id number] Social History Tobacco Use Types Packs/Day Years [...] on filedocumented in this encounter Care Teams President Financial Institution Relationship Specialty Start Date End Date Peter SawantDO PCP - General Family Medicine 08/08/15 Abhijeet Carvajal MD Surgeon Neurosurgery 11/03/15 Norris Coulter MD [address] [place] [address] Consulting Physician Pulmonary Disease 11/03/15 Fredy Foreman MD [address] [place] [address] Power Engineer Cardiovascular Disease 11/03/15 Marv Roper PA [address] [place] [address] Physician Umbrella Tipper Hand Neurosurgery 11/03/15 Evelyn Chavez MD [address] [place] [phone] Consulting Physician Rheumatology 05/03/20 documented as of this encounter
--- OUTSIDE RECORDS SUMMARY | 2024-07-07 17:20 | XMS_ITS | Encounter Summary ---
Author Organization [facility] Address [address] [place] [address] Care Team Providers Care Peoplesoft Hr Developer Name Role Phone Peter Sawant DO Primary Care Provider [phone] Abhijeet Carvajal MD Unavailable [phone] Norris Coulter MD Unavailable [phone] Fredy Foreman MD Unavailable [phone] Marv Roper Unavailable Evelyn Chavez MD Unavailable Encounter Details Date Type Department Care Team (Late st Contact Info) Description 11/04/2015 Scanned Document [facility] [address] [facility] [place], [place] [id number] Evelyn Chavez MD [address] [place], [place] [id number] Social History Tobacco Use Types Packs/Day Years Used Date Smoking Tobacco: Former Comments:age [age] Alcohol Use Standard Drinks/Week Comments [...] on filedocumented in this encounter Care Teams Peoplesoft Hr Developer Relationship Specialty Start Date End Date Peter Sawant DO PCP - General Family Medicine 08/08/15 Abhijeet Carvajal MD Surgeon Neurosurgery 11/03/15 Norris Coulter MD [address] [place] [phone] Consulting Physician Pulmonary Disease 11/03/15 Fredy Foreman MD [address] [place] [address] Scale Agent Cardiovascular Disease 11/03/15 Marv Roper PA [address] [place] [address] Physician Experimental Machinist Neurosurgery 11/03/15 Evelyn Chavez MD [address] [place] [address] Consulting Physician Rheumatology 05/03/20 documented as of this encounter
--- OUTSIDE RECORDS SUMMARY | 2024-07-07 17:20 | XMS_ITS | Referral Summary ---
Author Organization [facility] Address [address] [place] [address] Care Team Providers Care Office Services Associate Name Role Phone Jese Candelaria MD Unavailable Demar Marx MD Primary Care Provider [phone] Encounters Date Type Department Care Team Description 06/16/2024 Results Follow-Up [facility] Primary Care at [address] [place] [phone] Demar Marx MD 06/12/2024 12:50 PM HAND OR MACHINE PASTER - 06/12/2024 11:59 PM HAND OR MACHINE PASTER Hospital Encounter [facility] [address] [place] [address] lung screening; Lung nodule Discharge Disposition: Discharge to home or self care 06/12/2024 12:45 PM HAND OR MACHINE PASTER Office Visit [facility] at [address] [place] [phone] Trista Barros MD Coronary artery disease involving cheesh-na coronary artery of cheesh-na heart without angina pectoris (Primary Dx); S/P CABG (coronary artery bypass graft); Pulmonary hypertension (HCC); Current smoker; Essential hypertension; Pulmonary emphysema, unspecified emphysema type (HCC); Atherosclerosis of cheesh-na arteries of extremities with intermittent claudication, bilateral legs 06/11/2024 Telephone [facility] 1 [place] [address] Geeta Leung 06/02/2024 2:15 PM HAND OR MACHINE PASTER Office Visit [facility] Pulmonary at [address] [place] [phone] Jese Candelaria MD Pulmonary hypertension (HCC) (Primary Dx); Centrilobular emphysema (HCC); Cigarette nicotine dependence without complication 05/21/2024 Telephone [facility] 1 [place] [address] Nalarcenioa, July D. 04/21/2024 1:25 PM HAND OR MACHINE PASTER Lab [facility] 1 [place] [address] Need for hepatitis B screening test; Thyroid disease; Chronic diarrhea; Mixed hyperlipidemia; Impaired fasting glucose; Essential hypertension; Preventative health care; Pulmonary hypertension (HCC) 04/21/2024 12:45 PM HAND OR MACHINE PASTER Office Visit [facility] Primary Care at [place] [address] [facility] [address] [place] [address] Demar Marx MD Physical exam, annual (Primary Dx); Mixed hyperlipidemia; Essential hypertension; Pulmonary emphysema, unspecified emphysema type (HCC); Chronic diarrhea; Need for hepatitis B screening test; Impaired fasting glucose; S/P CABG (coronary artery bypass graft); Pulmonary hypertension (HCC); Current smoker; Thyroid disease from Last 3 Months Allergies Active Allergy Reactions Criticality Noted Date Comments Amlodipine Other (See comments) Low 06/21/2021 Atorvastatin Muscle pain,Other (See comments),Unknown Medium 03/15/2011 Myalgia Other reaction(s): Muscle Pain Myalgia Cefaclor Rash Medium 08/17/2013 Clopidogrel Other (See comments) Low 12/26/2020 Bleeding ulcer Cyclobenzaprine Hives Medium 04/11/2023 Flu Vac,Qval 2012-14 (2-49yrs) Other (See comments) Low 04/12/2023 Pt unable to verify Lisinopril Cough,Diarrhea,Stom ach upset,Other (See comments),Unknown Low 12/13/2010 diarrhea Zolpidem Other (See comments) Low 03/02/2015 Medications thiamine (VITAMIN B1) 100 mg tablet Take 1 tablet (100 mg total) by mouth daily Active coenzyme Q10 200 mg capsule Take 1 capsule (200 mg total) by mouth daily Active azelastine (ASTELIN) 137 mcg (0.1 %) nasal spray Administer 2 sprays into each nostril 2 (two) times a day 6 Active L. acidophilus-dig enz cmb 5 5-250 mg capsule Take 1 capsule by mouth early childhood coordinator before breakfast Active acetaminophen (TYLENOL) 500 mg tablet Take 1 tablet (500 mg total) by mouth every 6 (six) hours as needed for pain Active losartan (COZAAR) 100 mg tablet Take 1 tablet (100 mg total) by mouth daily 30 tablet 4 Active montelukast (SINGULAIR) 10 mg tablet Take 1 tablet (10 mg total) by mouth nightly 30 tablet 4 Active rosuvastatin (CRESTOR) 10 mg tablet Take 1 tablet (10 mg total) by mouth nightly 30 tablet 4 Active traZODone (DESYREL) 100 mg tablet Take 1 tablet (100 mg total) by mouth nightly 30 tablet 4 Active isosorbide mononitrate ER (IMDUR) 30 mg 24 hr tablet Take 1 tablet (30 mg total) by mouth daily 30 tablet 4 Active ipratropium-alb uteroL (DUO-NEB) 0.5-2.5 mg/3 mL nebulizer solution Take 3 mL by nebulization every 6 (six) hours as needed for wheezing or shortness of breath 180 mL [address] (CYMBALTA) 60 mg capsule Take 2 capsules (120 mg total) by mouth daily 60 capsule 4 Active carvediloL (COREG) 25 mg tablet Take 1 tablet (25 mg total) by mouth 2 (two) times a day with meals 60 tablet 4 Active nitroglycerin (NITROSTAT) 0.[address] 1 tablet (0.4 mg total) under the tongue every 5 (five) minutes as needed for chest pain 30 tablet 4 Active Additional Information Patient not taking.Reported on 06/12/2024 nisoldipine ER (SULAR) 17 mg 24 hr tablet Take 1 tablet (17 mg total) by mouth daily 30 tablet 4 Active clopidogreL (PLAVIX) 75 mg tablet Take 1 tablet (75 mg total) by mouth daily 30 tablet 4 Active cloNIDine (CATAPRES) 0.1 mg tablet Take 1 tablet (0.1 mg total) by mouth 3 (three) times a day 6 Active hydroCHLOROthia zide (HYDRODIURIL) 12.5 mg tablet Take 1 tablet (12.5 mg total) by mouth daily 5 Active methocarbamoL (ROBAXIN) 500 mg tablet Take 1 tablet (500 mg total) by mouth 4 (four) times a day 6 Active albuterol HFA (PROVENTIL HFA,VENTOLIN HFA,PROAIR HFA) 90 mcg/actuation inhaler Inhale 2 puffs every 6 (six) hours as needed for shortness of breath 1 each 11 4 Active glycopyrrolate- formoteroL (Bevespi Aerosphere) 9-4.8 mcg inhaler Inhale 2 puffs 2 (two) times a day 1 each 11 4 Active Additional Information Patient not taking.Reported on 06/12/2024 buPROPion XL (WELLBUTRIN XL) 450 mg 24 hr tablet Take 1 tablet (450 mg total) by mouth every morning 90 tablet 1 5 10/19/19 25 Active levothyroxine (SYNTHROID) 100 mcg tablet Take 1 tablet by mouth daily in the morning 30 minutes before other medications or supplements, 6 days per week 60 tablet 5 Active Active Problems Problem Noted Date Diagnosed Date Physical exam, annual 04/21/2024 Assessment & Plan (04/21/2024 1:08 PM HAND OR MACHINE PASTER): Discussed lifestyle modifications, diet and exercise. Routine blood work ordered/reviewed today. Yearly vision and dental examinations. Current smoker 05/15/2023 Assessment & Plan (04/21/2024 1:03 PM HAND OR MACHINE PASTER): Recommend quitting smoking Wants to quit States that she will do it cold turkey Recommend increasing wellbutrin to 450 mg xl Generalized anxiety disorder 05/15/2023 Essential hypertension 05/15/2023 Assessment & Plan (04/21/2024 1:01 PM HAND OR MACHINE PASTER): BP Readings from Last 3 Encounters: 04/21/24 136/84 02/04/24 120/52 07/29/23 142/74 Vitals BP 136/84 Pulse 81 Temp 37 C (98.6 F) (Temporal) Resp 20 Ht 162.6 cm (5' 4.02 ) Wt 73.5 kg (162 lb) SpO2 95% BMI 27.79 kg/m Lab Results Component Value Date POTASSIUM 3.6 04/15/2023 At goal at this time Continue current regimen Coreg 25 mg bid, hctz 12.5 mg every day, imdur 30 mg every day, losartan 100 mg every day, nisoldipine 17 mg every day Assessment & Plan (05/15/2023 11:16 AM HAND OR MACHINE PASTER): BP Readings from Last 3 Encounters: 05/15/23 112/74 04/15/23 157/74 Vitals BP 112/74 (BP Location: Left arm, Patient Position: Sitting) Pulse 78 Resp 16 Ht 162.6 cm (5' 4.02 ) Wt 79.7 kg (175 lb 12.8 oz) SpO2 97% BMI 30.16 kg/m Lab Results Component Value Date POTASSIUM 3.6 04/15/2023 At goal at this time Continue current regimen Coreg 25 mg bid, hctz 12.5 mg every day, imdur 30 mg every day, Pulmonary hypertension 04/15/2023 Assessment & Plan (04/21/2024 1:00 PM HAND OR MACHINE PASTER): Needs follow up with pulm Mitral valve regurgitation 04/15/2023 Thyroid disease 04/12/2023 Assessment & Plan (05/15/2023 11:17 AM HAND OR MACHINE PASTER): No results found for: TSH No tsh on file Repeat labs now Cont lvt 150 mcg every day for now CAD (coronary artery disease) 04/12/2023 Assessment & Plan (05/15/2023 11:16 AM HAND OR MACHINE PASTER): Cont coreg, crestor 10 mg qhs Rfepeat lipid panel Referral to cardio S/P CABG (coronary artery bypass graft) 04/12/19 Assessment & Plan (04/21/2024 1:00 PM HAND OR MACHINE PASTER): Continue cardio follow up Assessment & Plan (05/15/2023 10:51 AM HAND OR MACHINE PASTER): Will refer to cardiology for eval Mixed hyperlipidemia 04/12/2023 Assessment & Plan (04/21/2024 1:00 PM HAND OR MACHINE PASTER): No results found for: CHOL , POCCHOL No results found for: HDL , POCHDL No results found for: LDLCALC , CLDL , HIRISKLDL , LDL , LDLC , LDLDIRECT , LDLMED , LDLP , POCLDL , SCRLDL , SMALLLDLP , TOTLDLC No results found for: TRIG , POCTRIG No results found for: POCCHDLR No results found for: POCNONHDL No results found for: POCCHLPL Lipids now Assessment & Plan (05/15/2023 10:51 AM HAND OR MACHINE PASTER): No results found for: CHOL , POCCHOL No results found for: HDL , POCHDL No results found for: LDLCALC , CLDL , HIRISKLDL , LDL , LDLC , LDLDIRECT , LDLMED , LDLP , POCLDL , SCRLDL , SMALLLDLP , TOTLDLC No results found for: TRIG , POCTRIG No results found for: POCCHDLR No results found for: POCNONHDL No results found for: POCCHLPL Anxiety 04/12/2023 COPD with emphysema 04/11/2023 Assessment & Plan (05/15/2023 10:52 AM HAND OR MACHINE PASTER): Will refer to pulm for eval Continue albuterol prn, duo-neb prn, singulair, spiriva 2.5 mcg every day Resolved Problems Problem Noted Date Diagnosed Date Resolved Date Acute kidney injury 04/13/2023 05/15/19 24 Acute respiratory failure with hypoxia 04/12/2023 05/15/2023 Immunizations Immunization Administration Dates Next Due Influenza, Unspecified 04/21/2024(Deferr ed: Patient Refused),05/15/2023(Deferred: Allergy) Pneumococcal Conjugate Pcv20 05/15/2023 Pneumococcal Polysaccharide PPV23 06/07/2011 Td, Unspecified 06/06/2010,03/29/2004 Tdap 01/05/2019 Social History Tobacco Use Types Packs/Day Years Used Date Smoking Tobacco: Some Days Cigarettes 0.3 53.2 Started: 1971 Smokeless Tobacco: Never Tobacco Cessation:Ready to Q uit: Not Asked; Counseling Given: Not Answered [facility] Utilities Answer Date Recorded In the past 12 months has th e electric, gas, oil, or water company threatened to shut off services in your home? No 04/12/2023 Social Connection and Isolat ion Panel [NHANES] Answer Date Recorded In a typical week, how many times do you talk on the phone with family, friends, or neighbors? More than three times a week 04/12/2023 How often do you get togethe r with friends or relatives? More than three times a week 04/12/2023 How often do you attend chur ch or baptism services? Never 04/12/2023 Do you belong to any clubs o r organizations such as adventism groups, unions, fraternal or athletic groups, or school groups? No 04/12/2023 How often do you attend meet ings of the clubs or organizations you belong to? Never 04/12/2023 Marital Status Not on file 04/12/2023 AUDIT-C Answer Date Recorded Q1: How often do you have a drink containing alc ohol? Monthly or less 04/21/2024 Q2: How many drinks containi ng alcohol do you have on a typical day when you are drinking? 1 or 2 04/21/2024 Q3: How often do you have si x or more drinks on one occasion? Never 04/21/2024 Overall Financial Resource Strain (CARDIA) Answe r Date Recorded How hard is it for you to pa y for the very basics like food, housing, medical care, and heating? Not hard at all 04/12/2023 PHQ-2 Answer Date Recorded PHQ-2 Total Score (If total score is 3 or more points, staff should administer the PHQ-9) 1 04/21/2024 Hunger Vital Sign Answer Date Recorded Within the past 12 months, y ou worried that your food would run out before you got the money to buy more. Never true 04/12/19 24 Within the past 12 months, t he food you bought just didn't last and you didn't have money to get more. Never true 04/12/2023 PRAPARE - Transportation Answer Date Re corded In the past 12 months, has l ack of transportation kept you from medical appointments or from getting medications? No 08/2023 In the past 12 months, has l ack of transportation kept you from meetings, work, or from getting things needed for daily living? No 04/12/2023 Housing Stability Vital Sign Answer Ja e Recorded In the last 12 months, was t here a time when you were not able to pay the mortgage or rent on time? No 04/12/2023 In the last 12 months, how many places have you lived? 2 04/12/2023 In the last 12 months, was t here a time when you did not have a steady place to sleep or slept in a nursing home (including now)? No 04/12/2023 Personal Safety Answer Date Recorded Have you ever been in or are you currently in a harmful physical or emotional relationship or is someone making you feel afraid or unsafe? Denies 04/12/2023 Education Answer Date Recorded What is the highest level of school you have completed or the highest degree you have received? High school graduate 04/12/2023 Comments No Sex and Gender Information Value Date Recorded Sex Assigned at Not on file Legal Sex Female 11:22 AM HAND OR MACHINE PASTER Gender Identity Not on file Sexual Orientation Not on file Last Filed Vital Signs Vital Sign Reading Time Taken Comments Blood Pressure 139/70 06/12/2024 12:15 PM HAND OR MACHINE PASTER Pulse 60 06/12/2024 12:15 PM HAND OR MACHINE PASTER Temperature 37 C (98.6 F) 04/21/2024 12:47 PM HAND OR MACHINE PASTER Respiratory Rate 16 06/12/2024 12:15 PM HAND OR MACHINE PASTER Oxygen Saturation 97% 06/02/2024 2:33 PM HAND OR MACHINE PASTER Inhaled Oxygen Concentration - - Weight 75.8 kg (167 lb) 06/12/2024 1:15 PM HAND OR MACHINE PASTER Height 162.6 cm (5' 4 ) 06/12/2024 1:15 PM HAND OR MACHINE PASTER Body Mass Index 28.67 06/12/2024 1:15 PM HAND OR MACHINE PASTER Plan of Treatment Not on file Procedures Procedure Name Priority Date/Time Associated Diagnosis Comments CT CHEST WO CONTRAST F/U LUNG SCREEN PROTOCOL Schedule Routine, Read Routine (OP Routine) 06/12/2024 1:14 PM HAND OR MACHINE PASTER Abnormal CT lung screening Lung nodule T4, FREE Routine 04/21/2024 1:35 PM HAND OR MACHINE PASTER Thyroid disease EGFR Routine 04/21/2024 1:35 PM HAND OR MACHINE PASTER Essential hypertension DIFFERENTIAL AUTO Routine 04/21/2024 1:3 5 PM HAND OR MACHINE PASTER Essential hypertension CBC WITH AUTO DIFFERENTIAL Routine 04/21/2024 1:35 PM HAND OR MACHINE PASTER Essential hypertension COMPREHENSIVE METABOLIC PANEL Routine 04/21/2024 1:35 PM HAND OR MACHINE PASTER Essential hypertension HEMOGLOBIN A1C Routine 04/21/2024 1:35 PM HAND OR MACHINE PASTER Impaired fasting glucose LIPID PANEL Routine 04/21/2024 1:35 PM HAND OR MACHINE PASTER Mixed hyperlipidemia ERYTHROCYTE SEDIMENTATION RATE Routine 04/21/2024 1:35 PM HAND OR MACHINE PASTER Chronic diarrhea CRP (ACUTE PHASE) Routine 04/21/2024 1:3 5 PM HAND OR MACHINE PASTER Chronic diarrhea THYROID FUNCTION CASCADE Routine 04/21/2024 1:35 PM HAND OR MACHINE PASTER Thyroid disease HEPATITIS C ANTIBODY Routine 04/21/2024 1:35 PM HAND OR MACHINE PASTER Need for hepatitis B screening test HEPATITIS B SURFACE ANTIGEN Routine 04/21/2024 1:35 PM HAND OR MACHINE PASTER Need for hepatitis B screening test HEPATITIS B SURFACE ANTIBODY (IMMUNE STATUS) Routine 04/21/2024 1:35 PM HAND OR MACHINE PASTER Need for hepatitis B screening test HEPATITIS B CORE ANTIBODY, TOTAL Routine 04/21/2024 1:35 PM HAND OR MACHINE PASTER Need for hepatitis B screening test DEXA AXIAL SKELETON BONE DENSITY 1 OR MORE SITES Schedule Routine, Read Routine (OP Routine) 10/21/2023 3:16 PM CDT Postmenopausal SCREENING MAMMOGRAM BILATERAL W LISETH Schedule Routine, Read Routine (OP Routine) 10/21/2023 3:05 PM CDT Encounter for screening mammogram for malignant neoplasm of breast from Last 3 Months or Most Recently Relevant to Health Maintenance Results * CT Chest WO Contrast F/U Lung Screen Protocol (06/12/2024 1:14 PM HAND OR MACHINE PASTER) Anatomical Region Laterality Modality Chest N/A Computed Tomogra phy 06/16/2024 9:41 AM CDT Narrative 06/16/2024 9:48 AM CDT EXAM DESCRIPTION: CT CHEST WO CONTRAST F/U LUNG SCREEN PROTOCOL REASON FOR STUDY: Screening CT of the chest in a current smoker with a 50 pack year smoking history. Additional history: Prior exam was characterized as a Lung rads 3 with a left upper lobe pulmonary nodule measuring 0.6 cm.. TECHNIQUE: Low dose CT scan of the chest was performed without intravenous contrast using helical scanning technique. The exam extends from the lung apices through the lung bases. Automatic exposure control was used as a dose optimization technique. NOTE: This study was performed for the specific purposes of lung cancer screening and is not an alternative to diagnostic chest CT. RADIATION DOSE: CT dose index volume (CTDIvol) = 2.21 mGy COMPARISON: 10/21/2023 FINDINGS: SMOKING RELATED LUNG DISEASE: There are mild emphysematous changes of lungs with scattered mild subsegmental atelectasis and scarring. There is no definite evidence of a pneumothorax. There is scattered mild bronchial wall thickening, which is likely related to mild chronic bronchitis/bronchiolitis. There is no definite evidence of a focal consolidation or pleural effusion. LUNG NODULES: There is a grossly stable 0.6 cm pulmonary nodule in the central left upper lobe (axial image 56). CORONARY ARTERY CALCIFICATION: Present. OTHER: The heart size is stable. There is no definite evidence of a pericardial effusion. There are atherosclerotic changes of the thoracic aorta and coronary vessels. There is dilatation of main pulmonary artery measuring up to 3.7 cm, which raises the concern for pulmonary arterial hypertension. Postsurgical changes of midline sternotomy wires are noted. There is no definite unenhanced CT evidence of mediastinal, hilar, or axillary lymphadenopathy. There are scattered subcentimeter mediastinal lymph nodes noted with largest measuring 0.7 cm in the subcarinal region (axial image 131). There is a small hiatal hernia. The bilateral adrenal glands are grossly stable and unremarkable. There is a mild nodular contour of the liver with left hepatic lobe hypertrophy, which raises the concern for chronic hepatocellular disease. There is mild osteopenia. There is minimal dextroscoliotic curvature of the spine with degenerative changes. IMPRESSION: Grossly stable left upper lobe pulmonary nodule measuring 0.6 cm. No definite evidence of a new suspicious pulmonary nodule. Mild emphysematous changes of lungs with scattered mild subsegmental atelectasis and scarring. Scattered mild bronchial wall thickening, which is likely related to mild chronic bronchitis/bronchiolitis. Mild nodular contour of the liver with left hepatic lobe hypertrophy, which raises the concern for chronic hepatocellular disease. Clinical correlation with liver function tests is recommended as clinically indicated. Lung-RADS category 2: Benign appearance or behavior. Recommendation: Low dose Screening CT of chest in 12 months. THIS IS AN ELECTRONICALLY VERIFIED FINAL REPORT 06/16/2024 9:48 AM - Electronically signed by Michi Chauhan D.O. PS: PS Report ID: [id number] Reading Location: [id number] Procedure Note Michi Chauhan, DO - 06/16/2024 EXAM DESCRIPTION: CT CHEST WO CONTRAST F/U LUNG SCREEN PROTOCOL REASON FOR STUDY: Screening CT of the chest in a current smoker with a50 pack year smoking history. Additional history: Prior exam wascharacterized as a Lung rads 3 with a left upper lobe pulmonary nodule measuring 0.6 cm.. TECHNIQUE: Low dose CT scan of the chest was performed without intravenous contrast using helical scanning technique. The exam extends from the lung apices through the lung bases. Automatic exposure control was used as adose optimization technique. NOTE: This study was performed for the specific purposes of lung cancer screening and is not an alternative to diagnostic chest CT. RADIATION DOSE: CT dose index volume (CTDIvol) = 2.21 mGy COMPARISON: 10/21/2023 FINDINGS: SMOKING RELATED LUNG DISEASE: There are mild emphysematous changes oflungs with scattered mild subsegmental atelectasis and scarring. There is no definite evidence of a pneumothorax. There is scattered mild bronchialwall thickening, which is likely related to mild chronicbronchitis/bronchiolitis. There is no definite evidence of a focal consolidation or pleuraleffusion. LUNG NODULES: There is a grossly stable 0.6 cm pulmonary nodule in the central left upper lobe (axial image 56). CORONARY ARTERY CALCIFICATION: Present. OTHER: The heart size is stable. There is no definite evidence of a pericardial effusion. There are atherosclerotic changes of the thoracicaorta and coronary vessels. There is dilatation of main pulmonary arterymeasuring up to 3.7 cm, which raises the concern for pulmonary arterialhypertension. Postsurgical changes of midline sternotomy wires are noted. There is no definite unenhanced CT evidence of mediastinal, hilar, oraxillary lymphadenopathy. There are scattered subcentimeter mediastinal lymphnodes noted with largest measuring 0.7 cm in the subcarinal region (axial ). There is a small hiatal hernia. The bilateral adrenal glands are grossly stable and unremarkable. There is a mild nodular contour of the liverwith left hepatic lobe hypertrophy, which raises the concern for chronic hepatocellular disease. There is mild osteopenia. There is minimal dextroscoliotic curvature ofthe spine with degenerative changes. IMPRESSION: Grossly stable left upper lobe pulmonary nodule measuring 0.6 cm. Nodefinite evidence of a new suspicious pulmonary nodule. Mild emphysematous changes of lungs with scattered mild subsegmental atelectasis and scarring. Scattered mild bronchial wall thickening, which is likely related to mild chronic bronchitis/bronchiolitis. Mild nodular contour of the liver with left hepatic lobe hypertrophy,which raises the concern for chronic hepatocellular disease. Clinicalcorrelation with liver function tests is recommended as clinically indicated. Lung-RADS category 2: Benign appearance or behavior. Recommendation: Low dose Screening CT of chest in 12 months. THIS IS AN ELECTRONICALLY VERIFIED FINAL REPORT 06/16/2024 9:48 AM - Electronically signed by Michi Chauhan D.O. PS: PS Report ID: [id number] Reading Location: [place] [address] Demar Marx MD [facility] [place] [place] CT PROCEDURES Final Result * eGFR (04/21/2024 1:35 PM HAND OR MACHINE PASTER) eGFR 78 >=60 mL/min/1. 73 m2 Comment: Interpretive Data Reference Interval Normal >/= 90 mL/min/1.73m2 Mildly decreased* 60 - 89 mL/min/1.73m2 Mildly to moderately decreased 45 - 59 mL/min/1.73m2 Moderately to severely decreased 30 - 44 mL/min/1.73m2 Severely decreased 15 - 29 mL/min/1.73m2 Kidney Failure < 15 mL/min/1.73m2 *Relative to young adult level Estimated glomerular filtration rate is determined by the 2020 CKD-EPI equation recommended by the National [employer] (A Unifying Approach to GFR Estimation: Recommendations of the NKF-ASK Task Force on Reassessing the Inclusion of Race in Diagnosing Kidney Disease, JASN 2020). The CKD-EPI equation should not be used for patients with unstable renal function and has not been validated in children and those over 70. Current interpretive data was last reviewed 2021. Blood 04/21/2024 1:35 PM HAND OR MACHINE PASTER 04/21/2024 1:40 PM HAND OR MACHINE PASTER us Demar Marx MD LAB BLOOD ORDERABLES Final Resul t [facility] [place] [address] [facility] Department [place] [address] * Differential, auto (04/21/2024 1:35 PM HAND OR MACHINE PASTER) Neutrophil abs 5.6 1.5 - 6.5 K/cumm Imm gran abs 0.0 0.0 - 0.1 K/cumm [facility] ([facility]) Lymphocyte abs 2.2 0.8 - 3.3 K/cumm [facility] ([facility]) Monocyte abs 0.6 0.2 - 0.8 K/cumm [facility] ([facility]) Eosinophil abs 0.2 0.0 - 0.5 K/cumm [facility] ([facility]) Basophil abs 0.0 0.0 - 0.1 K/cumm [facility] ([facility]) Neutrophil pct 65.3 % [facility] ([facility]) Comment: Interpretive Data Percent cell count reference ranges are not reported, since discordance with absolute values may lead to misinterpretation of CBC data. Current Interpretive Data was last revised on 2017. Imm gran pct 0.1 % [facility] ([facility]) Comment: Interpretive Data Percent cell count reference ranges are not reported, since discordance with absolute values may lead to misinterpretation of CBC data. Current Interpretive Data was last revised on 2017. Lymphocyte pct 26.0 % [facility] ([place]) Comment: Interpretive Data Percent cell count reference ranges are not reported, since discordance with absolute values may lead to misinterpretation of CBC data. Current Interpretive Data was last revised on 2017. Monocyte pct 6.4 % [facility] ([place]) Comment: Interpretive Data Percent cell count reference ranges are not reported, since discordance with absolute values may lead to misinterpretation of CBC data. Current Interpretive Data was last revised on 2017. Eosinophil pct 1.7 % [facility] ([place]) Comment: Interpretive Data Percent cell count reference ranges are not reported, since discordance with absolute values may lead to misinterpretation of CBC data. Current Interpretive Data was last revised on 2017. Basophil pct 0.5 % [facility] ([place]) Comment: Interpretive Data Percent cell count reference ranges are not reported, since discordance with absolute values may lead to misinterpretation of CBC data. Current Interpretive Data was last revised on 2017. Blood 04/21/2024 1:35 PM HAND OR MACHINE PASTER 04/21/2024 1:40 PM HAND OR MACHINE PASTER eDmar Marx MD LAB BLOOD ORDERABLES Final Resul t Performing Organization Address City/[facility]/ZIP Co de Phone Number AIDA ELLISON ([place]) 1 [facility] [place] [address] * (ABNORMAL) Thyroid Function [place] (04/21/2024 1:35 PM HAND OR MACHINE PASTER) TSH 0.04(L) 0.30 - 4.20 mcIUnit/mL Blood 04/21/2024 1:35 PM HAND OR MACHINE PASTER 04/21/2024 1:40 PM HAND OR MACHINE PASTER Demar Marx MD LAB BLOOD ORDERABLES Final Resul t Performing Organization Address City/State/[facility] Co de Phone Number AIDA ELLISON ([place]) 1 [facility] Department [place] [address] * (ABNORMAL) CBC with auto differential (04/21/2024 1:35 PM HAND OR MACHINE PASTER) [facility] WBC 8.6 3.8 - 9.9 K/cumm Hgb 13.4 11.9 - 15.5 g/dL [facility] ([place]) Hct 40.1 35.6 - 45.5 % [facility] ([place]) Plt 226 150 - 400 K/cumm [facility] ([place]) MPV 9.0(L) 9.1 - 12.3 fL [facility] ([place]) RBC 4.84 3.90 - 5.20 M/cumm [facility] ([place]) MCV 82.9 81.3 - 96.4 fL [facility] ([place]) MCH 27.7 27.1 - 33.3 pg [facility] ([place]) MCHC 33.4 32.3 - 35.7 g/dL [facility] ([place]) RDW CV 12.1 11.1 - 14.9 % [facility] ([place]) RDW SD 36.8 35.7 - 48.1 fL [facility] ([place]) NRBC abs 0.00 0.00 - 0.01 K/cumm [facility] ([place]) Blood 04/21/2024 1:35 PM HAND OR MACHINE PASTER 04/21/2024 1:40 PM HAND OR MACHINE PASTER us Demar Marx MD LAB BLOOD ORDERABLES Final Resul t AIDA ELLISON ([place]) 1 [facility] [place] [address] * Hepatitis C antibody Blood (04/21/2024 1:35 PM HAND OR MACHINE PASTER) [facility] Hep C Ab Nonreactive Nonreactive Comment: Interpretive Data Nonreactive: Antibodies to HCV not detected. Does NOT exclude the possibility of recent exposure to HCV. Equivocal: Equivocal for HCV antibodies. Supplemental molecular testing will be automatically performed to determine infection status in accordance with current CDC screening recommendations. Reactive: Positive for HCV antibodies. This may represent current or past HCV infection. Supplemental molecular testing will be automatically performed to determine current infection status in accordance with current CDC screening recommendations. Interpretive data was last revised on 2019. Testing performed by: [facility], [address] [place] [address]., [id number] Blood 04/21/2024 1:35 PM HAND OR MACHINE PASTER 04/21/2024 3:46 PM HAND OR MACHINE PASTER us Demar Marx MD LAB MICROBIOLOGY - GENERAL ORDER AGUSTIN Final Result [facility] ([place]) 1 [facility] [address] * Hepatitis B core antibody, total Blood (04/21/2024 1:35 PM HAND OR MACHINE PASTER) Hep B core IgG/IgM Nonreactive Nonreactive Comment:Testing performed by : [facility], [address] [place] [address]., [id number] Blood 04/21/2024 1:3 5 PM HAND OR MACHINE PASTER 04/21/2024 3:59 PM HAND OR MACHINE PASTER us Demar Marx MD LAB MICROBIOLOGY - GENERAL ORDER AGUSTIN Final Result AIDA ELLISON ([place]) 1 [facility] [place] [address] * Hepatitis B surface antibody (immune status) Blood (04/21/2024 1:35 PM HAND OR MACHINE PASTER) HBsAb (immune status) Nonreactive Comment: Interpretive Data Nonreactive: This result is consistent with a lack of immunity to Hepatitis B Virus when used in the setting of routine screening. Equivocal: The immune status of the individual should be further assessed, if appropriate, after consideration of clinical status, risk factors, and additional diagnostic information. Reactive: This result is consistent with immunity to Hepatitis B Virus when used in the setting of routine screening. Current interpretive data was last revised on 19. Testing performed by: [facility], [address] [place] [address]., [id number] Blood 04/21/2024 1:35 PM HAND OR MACHINE PASTER 04/21/2024 3:46 PM HAND OR MACHINE PASTER us Demar Marx MD LAB MICROBIOLOGY - GENERAL ORDER AGUSTIN Final Result Performing Organization Address [facility] de Phone Number [facility] ([place]) 1 [facility] [address] * Hepatitis B Surface Antigen Blood (04/21/2024 1:35 PM HAND OR MACHINE PASTER) Pathologist [facility] HepBsAg Nonreactive Nonreactive Comment:Testing performed by : [facility], [address] [place] [address], [id number] Blood 04/21/2024 1:35 PM HAND OR MACHINE PASTER 04/21/2024 3:46 PM HAND OR MACHINE PASTER us Demar Marx MD LAB MICROBIOLOGY - GENERAL ORDER AGUSTIN Final Result Performing Organization Address [facility] de Phone Number [facility] ([place]) 1 [facility] [address] * (ABNORMAL) Erythrocyte sedimentation rate (04/21/2024 1:35 PM HAND OR MACHINE PASTER) Pathologist [facility] Erythrocyte sedimentation rate 32(H) 1 - 30 mm/hr Blood 04/21/2024 1:35 PM HAND OR MACHINE PASTER 04/21/2024 1:40 PM HAND OR MACHINE PASTER us Demar Marx MD LAB BLOOD ORDERABLES Final Resul t Performing Organization Address [facility] Co de Phone Number [facility] ([place]) 1 [facility] [address] * CRP (acute phase) (04/21/2024 1:35 PM HAND OR MACHINE PASTER) Pathologist [facility] CRP <3.0 <=10.0 mg/L Blood 04/21/2024 1:35 PM HAND OR MACHINE PASTER 04/21/2024 1:40 PM HAND OR MACHINE PASTER us Demar Marx MD LAB BLOOD ORDERABLES Final Resul t AIDA ELLISON ([place]) 1 [facility] [place] [address] * (ABNORMAL) T4, free (04/21/2024 1:35 PM HAND OR MACHINE PASTER) Free T4 1.90(H) 0.90 - 1.70 ng/dL Blood 04/21/2024 1:35 PM HAND OR MACHINE PASTER 04/21/2024 1:40 PM HAND OR MACHINE PASTER Narrative AIDA ELLISON ([place]) - 04/21/2024 8:48 PM HAND OR MACHINE PASTER This test was reflexed from a TSH result. us Demar Marx MD LAB BLOOD ORDERABLES Final Resul t Performing Organization Address [facility] de Phone Number AIDA ELLISON ([place]) 1 [facility] [place] [address] * Hemoglobin A1c (04/21/2024 1:35 PM HAND OR MACHINE PASTER) [facility] Hgb A1C 5.2 4.0 - 5.6 % Estimated Average Glucose 103 mg/dL AIDA ELLISON ([place]) Comment: The ADA recommends reporting an estimated Average Glucose (eAG) with all Hemoglobin A1c results using the equation derived from a study of 507 normal and diabetic adults. Minority populations were underrepresented and children were not included. (Diabetes Care 31:6777-3029, 2008). The eAG is not equivalent to a fasting glucose. Blood 04/21/2024 1:35 PM HAND OR MACHINE PASTER 04/21/2024 1:40 PM HAND OR MACHINE PASTER us Demar Marx MD LAB BLOOD ORDERABLES Final Resul t Performing Organization Address City/[facility]/ZIP Co de Phone Number AIDA ELLISON ([place]) 1 [facility] [place] [address] * Lipid panel (04/21/2024 1:35 PM HAND OR MACHINE PASTER) [facility] Cholesterol 137 30 - 199 mg/dL Comment: Interpretive Data Ages < or = 19 years Acceptable: <170 mg/dL Borderline high: 170-199 mg/dL High: >or= 200 mg/dL Ages > or = 20 years Desirable: <200 mg/dL Borderline high: 200-239 mg/dL High: >or= 240 mg/dL Literature References: 1. Expert Panel on Integrated Guidelines for Cardiovascular Health and Risk Reduction in Children and Adolescents. Pediatrics 2011;128:S213 2. NCEP Expert Panel. Circulation 2004;110:227 Current Interpretive Data was last revised on 2017. Triglycerides 140 <=149 mg/dL AIDA ELLISON ([place]) Comment: Interpretive Data Ages < or = 9 years Acceptable: <75 mg/dL Borderline high: 75-99 mg/dL High: >or= 100 mg/dL Ages 10 to 20 years Acceptable: <90 mg/dL Borderline high: 90-129 mg/dL High: >or= 130 mg/dL Ages > or = 20 years Desirable: <150 mg/dL Borderline high: 150-199 mg/dL High: 200-499 mg/dL Very high: >or= 499 mg/dL Literature References: 1. Expert Panel on Integrated Guidelines for Cardiovascular Health and Risk Reduction in Children and Adolescents. Pediatrics 2011;128:S213 2. NCEP Expert Panel. Circulation 2004;110:227 Current Interpretive Data was last revised on 2017. HDL 61 >=40 mg/dL AIDA Piña ([place]) Comment: Interpretive Data Ages < or = 19 years Acceptable: >45 mg/dL Borderline low: 40-45 mg/dL Low: <40 mg/dL Ages > or = 20 years Desirable: >or= 60 mg/dL Low: <40 mg/dL Literature References: 1. Expert Panel on Integrated Guidelines for Cardiovascular Health and Risk Reduction in Children and Adolescents. Pediatrics 2011;128:S213 2. NCEP Expert Panel. Circulation 2004;110:227 Current Interpretive Data was last revised on 2017. LDL, calculated 52 <=129 mg/dL AIDA ELLISON ([place]) Comment: Interpretive Data Ages < or = 19 years Acceptable: <110 mg/dL Borderline high: 110-129 mg/dL High: >or= 130 mg/dL Ages > or = 20 years Optimal: <100 mg/dL Near optimal: 100-129 mg/dL Borderline high: 130-159 mg/dL High: >160 mg/dL Calculated using the Senthil LDL-C estimating equation. This equation was implemented on 2023. Prior to this date LDL-C was estimated using the Friedewald equation. Literature References: 1. Expert Panel on Integrated Guidelines for Cardiovascular Health and Risk Reduction in Children and Adolescents. Pediatrics 2011;128:S213 2. NCEP Expert Panel. Circulation 2004;110:227 3. Senthil Adam et al. IGNACIO Cardiol. 2020 August 06;5(5):540-548. doi: 10.1001/jamacardio.2020.0013 Current Interpretive Data was last revised on 2023. Non-HDL Cholesterol 76 mg/dL AIDA ELLISON ([place]) Comment: Interpretive Data Ages < or = 19 years Acceptable: <120 mg/dL Borderline high: 120-144 mg/dL High: >145 mg/dL Ages > or = 20 years When triglycerides are >200 mg/dL, Non-HDL cholesterol is a secondary target of therapy with treatment goals that are 30 mg/dL greater than the LDL cholesterol target. Literature References: 1. Expert Panel on Integrated Guidelines for Cardiovascular Health and Risk Reduction in Children and Adolescents. Pediatrics 2011;128:S213 2. NCEP Expert Panel. Circulation 2004;110:227 Current Interpretive Data was last revised on 2017. Chol/HDL ratio 2 [facility] ([place]) Blood 04/21/2024 1:35 PM HAND OR MACHINE PASTER 04/21/2024 1:40 PM HAND OR MACHINE PASTER us Demar Marx MD LAB BLOOD ORDERABLES Final Resul t AIDA ELLISON ([place]) 1 [facility] Department of Laboratories [place], [place] [id number] * (ABNORMAL) Comprehensive metabolic panel (04/21/2024 1:35 PM HAND OR MACHINE PASTER) Sodium 146(H) 135 - 145 mmol/L Potassium, pl 3.3 3.3 - 4.9 mmol/L [facility] ([place]) Chloride 104 97 - 110 mmol/L [facility] ([place]) CO2 32 22 - 32 mmol/L [facility] ([place]) Anion gap 10 2 - 15 mmol/L [facility] ([place]) BUN 8 6 - 25 mg/dL [facility] ([place]) Creatinine 0.83 0.60 - 1.10 mg/dL [facility] ([place]) Glucose 93 70 - 199 mg/dL [facility] ([place]) Comment: Interpretive Data Fasting glucose >/= 126 mg/dl is diagnostic for diabetes. Fasting is defined as no caloric intake for at least 8 hours. Fasting glucose between 100 mg/dl to 125 mg/dl is diagnostic of prediabetes. In a patient with classic symptoms of hyperglycemia or hyperglycemic crisis, a random glucose >/= 200 mg/dl is diagnostic for diabetes. In the absence of unequivocal hyperglycemia, results should be confirmed by repeat testing. The classification and Diagnosis of Diabetes Diabetes Care 2021; 46: S19-S40. Current interpretive data was last revised 2022. Calcium 9.5 8.5 - 10.3 mg/dL [facility] ([place]) Bilirubin, total 0.3 0.1 - 1.2 mg/dL [facility] ([place]) Protein, pl 6.3(L) 6.5 - 8.5 g/dL [facility] ([place]) Albumin 3.9 3.5 - 5.0 g/dL [facility] ([place]) Alk phos 105 40 - 130 Units/L [facility] ([place]) ALT 13 7 - 45 Units/L [facility] ([place]) AST 15 10 - 45 Units/L [facility] ([place]) Blood 04/21/2024 1:35 PM HAND OR MACHINE PASTER 04/21/2024 1:40 PM HAND OR MACHINE PASTER us Demar Marx MD LAB BLOOD ORDERABLES Final Resul t [facility] ([place]) 1 [facility] Department of Laboratories [place], [place] [id number] * Dexa Axial Skeleton Bone Density 1 Or 2 Site (10/21/2023 3:16 PM CDT) Anatomical Region Laterality Modality Body N/A Other 10/21/2023 7:47 PM CDT Narrative 10/21/2023 7:48 PM CDT EXAM DESCRIPTION: DEXA AXIAL SKELETON BONE DENSITY 1 OR MORE SITES REASON FOR STUDY: 63 y/o year old F with given history of: osteoporosis screening Screening. Postmenopausal Rn Case Mgr/Model: [employer] SL (S/N [id number]) CLINICAL INFORMATION: Current height: 62.5 inches Maximum height: 64 inches Weight: 165 pounds Risk factors: Postmenopausal, smoking history, rheumatoid arthritis, asthma or emphysema COMPARISON: None available FINDINGS: AP LUMBAR SPINE L1-L4: Total BMD is 0.911 g/cm2 T-score is -1.2 LEFT HIP: Total BMD is 0.761 g/cm2 T-score is -1.5 Femoral neck BMD is 0.597 g/cm2 T-score is -2.3 FRAX: 10 year risk for a major osteoporotic fracture is 16 %, 10 year risk for a hip fracture is 4.8 % IMPRESSION: Low Bone Mass. REFERENCE: Bone mineral density: T-Score: Normal (T-score above or = -1.0) Low bone mass (T-score between -1.0 and -2.5) replaces the previously used term osteopenia Osteoporosis (T-score = or below -2.5) Z-Score: Within the expected range for age (Z-score above -2.0) Below the expected range for age (Z-score is -2.0 or below) Please see below follow up recommendations. Medical evaluation for secondary causes of low bone mineral density may be appropriate. FRAX is a World Health Organization validated fracture risk assessment tool that calculates a person's 10 year probability of a major osteoporosis related fracture and hip fracture. According to the National Osteoporosis Foundation guidelines, postmenopausal women and men age 50 or older with low bone mass and a 10 year probability of a major osteoporosis related fracture = or greater than 20% or a 10 year probability of a hip fracture = or greater than 3% should be considered for pharmacological treatment for the prevention of osteoporosis. For further information, including treatment recommendations, please refer to the 2019 ISCD Official Positions (http://www.iscd.org) and the NOF's Clinician's Guide to Prevention and Treatment of Osteoporosis (http://www.nof.org/professionals/clinical-guidelines) THIS IS AN ELECTRONICALLY VERIFIED FINAL REPORT 10/21/2023 7:48 PM - Electronically signed by Dann Ramos M.D. MF: TIAN Report ID: [id number] Reading Location: [id number] Procedure Note Dann Ramos MD - 10/21/2023 EXAM DESCRIPTION: DEXA AXIAL SKELETON BONE DENSITY 1 OR MORE SITES REASON FOR STUDY: 63 y/o year old F with given history of:osteoporosis screening Screening. Postmenopausal Rn Case Mgr/Model: [employer] SL (S/N [id number]) CLINICAL INFORMATION: Current height: 62.5 inches Maximum height: 64 inches Weight: 165 pounds Risk factors: Postmenopausal, smoking history, rheumatoid arthritis,asthma or emphysema COMPARISON: None available FINDINGS: AP LUMBAR SPINE L1-L4: Total BMD is 0.911 g/cm2 T-score is -1.2 LEFT HIP: Total BMD is 0.761 g/cm2 T-score is -1.5 Femoral neck BMD is 0.597 g/cm2 T-score is -2.3 FRAX: 10 year risk for a major osteoporotic fracture is 16 %, 10 year risk for ahip fracture is 4.8 % IMPRESSION: Low Bone Mass. REFERENCE: Bone mineral density: T-Score: Normal (T-score above or = -1.0) Low bone mass (T-score between -1.0 and -2.5) replaces thepreviously used term osteopenia Osteoporosis (T-score = or below -2.5) Z-Score: Within the expected range for age (Z-score above -2.0) Below the expected range for age (Z-score is -2.0 or below) Please see below follow up recommendations. Medical evaluation forsecondary causes of low bone mineral density may be appropriate. FRAX is a World Health Organization validated fracture risk assessmenttool that calculates a person's 10 year probability of a major osteoporosisrelated fracture and hip fracture. According to the National OsteoporosisFoundation guidelines, postmenopausal women and men age 50 or older with low bonemass and a 10 year probability of a major osteoporosis related fracture = or greater than 20% or a 10 year probability of a hip fracture = or greaterthan 3% should be considered for pharmacological treatment for the preventionof osteoporosis. For further information, including treatment recommendations, please referto the 2019 ISCD Official Positions (http://www.iscd.org) and the NOF's Clinician's Guide to Prevention and Treatment of Osteoporosis (http://www.nof.org/professionals/clinical-guidelines) THIS IS AN ELECTRONICALLY VERIFIED FINAL REPORT 10/21/2023 7:48 PM - Electronically signed by Dann Ramos M.D. MF: TIAN Report ID: [id number] Reading Location: [place] [address] Demar Marx MD [facility] DXA PROCEDURES Final Result * SCREENING MAMMOGRAM BILATERAL W LISETH (10/21/2023 3:05 PM CDT) Anatomical Region Laterality Modality Breast Bilateral Mammography 10/29/2023 11:3 3 AM CDT Impressions 10/29/2023 11:33 AM CDT There is no mammographic evidence of malignancy. A 1 year screening mammogram is recommended. BI-RADS: 2 - Benign. The patient has been or will be contacted. The patient will be entered into a reminder system with a target due date of 1 year for her next mammogram. Electronically signed by: Petr Fields M.D. Narrative 10/29/2023 11:33 AM CDT EXAMINATION: SCREENING MAMMOGRAM BILATERAL W LISETH ORDERING HEALTHCARE PROVIDER: DEMAR MARX HISTORY: Routine screening mammography. COMPARISON: Outside mammograms dated 06/14/2020, 02/15/2017, 03/20/2012, and 03/14/2011 TECHNIQUE: CC and MLO views of the bilateral breasts were obtained with digital technique using breast tomosynthesis with C view. Computer aided detection was utilized. FINDINGS: DENSITY: There are scattered fibroglandular elements in the bilateral breasts. BREASTS: There are benign scattered calcifications in both breasts. There are no suspicious masses, suspicious calcifications, or other suspicious findings in either breast. There has been no suspicious interval change. Demar Marx MD IMG MAMMO PROCEDURES Final Resul t from Last 3 Months or Most Recently Relevant to Health Maintenance Insurance [employer] MEDICARE GOLD Advance Directives For more information, please contact: [phone] * Full Code (Latest Code Status on File) Date Activated Date Inactivated Comments 04/11/2023 11:21 PM 04/15/2023 9:43 PM Care Teams Office Services Associate Relationship Specialty Start Date End Date Demar Marx MD [address] [facility] [address] [place] [address] PCP - General Family Medicine 05/15/23 Jese Candelaria MD [address] [facility] [address] [place] [address] Consulting Physician Pulmonary Disease 04/15/23
--- OUTSIDE RECORDS SUMMARY | 2024-07-07 17:20 | XMS_ITS | Encounter Summary ---
Author Organization [facility] Address [address] [place] [address] Care Team Providers Care Press Operator Automatic Name Role Phone Peter Sawant DO Primary Care Provider [phone] Abhijeet Carvajal MD Unavailable [phone] Norris Coulter MD Unavailable [phone] Fredy Foreman MD Unavailable [phone] Marv Roper Unavailable Evelyn Chavez MD Unavailable Encounter Details Date Type Department Care Team (Late st Contact Info) Description 01/09/2016 Scanned Document [employer] [facility] Spine and Neurological Surgery [address] [place], [place] [id number] Abhijeet Carvajal MD [address] [place], [place] [id number] Social History Tobacco Use Types Packs/Day Years [...] on filedocumented in this encounter Care Teams Press Operator Automatic Relationship Specialty Start Date End Date Peter SawantDO PCP - General Family Medicine 08/08/15 Abhijeet Carvajal MD Surgeon Neurosurgery 11/03/15 Norris Coulter MD [address] [place] [address] Consulting Physician Pulmonary Disease 11/03/15 Fredy Foreman MD [address] [place] [address] Boring Inspector Cardiovascular Disease 11/03/15 Marv Roper PA [address] [place] [address] Physician Decision Support Manager Neurosurgery 11/03/15 Evelyn Chavez MD [address] [place] [id number] Consulting Physician Rheumatology 05/03/20 documented as of this encounter
--- OUTSIDE RECORDS SUMMARY | 2024-07-07 17:20 | XMS_ITS | Clinical Summary ---
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 Routine blood work ordered/reviewed today. Yearly vision and dental examinations. Current smoker 05/15/2023 Assessment & Plan (04/21/2024 1:03 PM PROGRAM PLANNER): Recommend quitting smoking Wants to quit States that she will do it cold turkey Recommend increasing wellbutrin to 450 mg xl Generalized anxiety disorder 05/15/2023 Essential hypertension 05/15/2023 Assessment & Plan (04/21/2024 1:01 PM PROGRAM PLANNER): BP Readings from Last 3 Encounters: 04/21/24 [...] day Assessment & Plan (05/15/2023 11:16 AM PROGRAM PLANNER): BP Readings from Last 3 Encounters: 05/15/23 [...] 04/15/2023 Assessment & Plan (04/21/2024 1:00 PM PROGRAM PLANNER): Needs follow up with pulm Mitral valve regurgitation 04/15/2023 Thyroid disease 04/12/2023 Assessment & Plan (05/15/2023 11:17 AM PROGRAM PLANNER): No results found for: TSH No tsh on file Repeat labs now Cont lvt 150 mcg every day for now CAD (coronary artery disease) 04/12/2023 Assessment & Plan (05/15/2023 11:16 AM PROGRAM PLANNER): Cont coreg, crestor 10 mg qhs Rfepeat lipid panel Referral to cardio S/P CABG (coronary artery bypass graft) 04/12/19 Assessment & Plan (04/21/2024 1:00 PM PROGRAM PLANNER): Continue cardio follow up Assessment & Plan (05/15/2023 10:51 AM PROGRAM PLANNER): Will refer to cardiology for eval Mixed hyperlipidemia 04/12/2023 Assessment & Plan (04/21/2024 1:00 PM PROGRAM PLANNER): No results found for: CHOL , POCCHOL [...] now Assessment & Plan (05/15/2023 10:51 AM PROGRAM PLANNER): No results found for: CHOL , POCCHOL [...] 04/11/2023 Assessment & Plan (05/15/2023 10:52 AM PROGRAM PLANNER): Will refer to pulm for eval Continue albuterol prn, duo-neb prn, singulair, spiriva 2.5 mcg every day Resolved Problems Problem Noted Date Diagnosed Date Resolved Date Acute kidney injury 04/13/2023 05/15/19 Acute respiratory failure with hypoxia 04/12/2023 05/15/2023 Encounters Date Type Department Care Team Description 06/16/2024 Results Follow-Up [facility] Primary Care at [address] [place] [address] Demar Marx MD 06/12/2024 12:50 PM PROGRAM PLANNER - 06/12/2024 11:59 PM PROGRAM PLANNER Hospital Encounter [facility] [address] [place] [address] lung screening; Lung nodule Discharge Disposition: Discharge to home or self care 06/12/2024 12:45 PM PROGRAM PLANNER Office Visit [facility] at [address] [place] [address] Trista Barros MD Coronary artery disease involving paiute-shoshone coronary artery of paiute-shoshone heart without angina pectoris (Primary Dx); S/P CABG (coronary artery bypass graft); Pulmonary hypertension (HCC); Current smoker; Essential hypertension; Pulmonary emphysema, unspecified emphysema type (HCC); Atherosclerosis of [place]shosh[place] arteries of extremities with intermittent claudication, bilateral legs 06/11/[address] [address] [facility] 06/02/2024 2:15 PM PROGRAM PLANNER Office Visit [facility] Medical [facility] Pulmonary at [address] [place] [address] Jese Candelaria MD Pulmonary hypertension (HCC) (Primary Dx); Centrilobular emphysema (HCC); Cigarette nicotine dependence without complication 05/21/[address] [address] [facility] 04/21/2024 1:25 PM PROGRAM PLANNER Lab [address] [address] Need for hepatitis B screening test; Thyroid disease; Chronic diarrhea; Mixed hyperlipidemia; Impaired fasting glucose; Essential hypertension; Preventative health care; Pulmonary hypertension (HCC) 04/21/2024 12:45 PM PROGRAM PLANNER Office Visit [facility] Medical Group Primary Care at [address] [place] [address] Demar Marx MD Physical exam, annual (Primary Dx); Mixed hyperlipidemia; Essential hypertension; Pulmonary emphysema, unspecified emphysema type (HCC); Chronic diarrhea; Need for hepatitis B screening test; Impaired fasting glucose; S/P CABG (coronary artery bypass graft); Pulmonary hypertension (HCC); Current smoker; Thyroid disease from Last 3 Months Immunizations Immunization Administration Dates Next Due Influenza, Unspecified 04/21/2024(Deferr ed: Patient Refused),05/15/2023(Deferred: Allergy) Pneumococcal Conjugate Pcv20 05/15/2023 Pneumococcal Polysaccharide PPV23 06/07/2011 Td, Unspecified 06/06/2010,03/29/2004 Tdap 01/05/2019 Surgical History Surgery Date Site/Laterality Comments TX RPR THORACOABDOMINAL AORT IC ANEURYS W/WO BYPASS 06/06/2010 - 07/06/2010 HYSTERECTOMY Medical History Medical History Date Comments COPD (chronic obstructive pulmonary disease) (HC C) Hypertension Thyroid disease 04/12/2023 Asthma Arthritis CHF (congestive heart failure) (HCC) Sleep apnea Skin cancer Smoking Family History Medical History Relation Name Comments Breast cancer Father's Sister Uterine cancer Father's Sister Breast cancer Sister Uterine cancer Sister Ovarian cancer Neg Hx Thyroid cancer Neg Hx Relation Name Status Comments Father's Sister Sister Social History Tobacco Use Types Packs/Day Years Used Date Smoking Tobacco: Some Days Cigarettes 0.3 53.2 Started: 1973 Smokeless Tobacco: Never Tobacco Cessation:Ready to Q uit: Not Asked; Counseling Given: Not Answered [facility] [employer] Answer Date Recorded In the past 12 months has e [employer], gas, oil, or water Feedback threatened to shut off services in your [...] often do you attend chur ch or lutheran services? Never 04/12/2023 Do you belong to any clubs o r organizations such as mandaeism groups, unions, fraternal or athletic groups, or [...] place to sleep or slept in a halfway (including now)? No 04/12/2023 Personal Safety Answer [...] on file Legal Sex Female 11:22 AM PROGRAM PLANNER Gender Identity Not on file Sexual Orientation Not on file Obstetrics History Para Term AB IAB SAB Ectopic Multiple Livin g Live Births 4 2 2 Date Outcome GA Total Labor Labor/2nd/3rd Weight Sex Type Anes PTL Dea A1 A5 Name Clin Term Term Last Filed Vital Signs Vital Sign Reading Time Taken Comments Blood Pressure 139/70 06/12/2024 12:15 PM PROGRAM PLANNER Pulse 60 06/12/2024 12:15 PM PROGRAM PLANNER Temperature 37 C (98.6 F) 04/21/2024 12:47 PM PROGRAM PLANNER Respiratory Rate 16 06/12/2024 12:15 PM PROGRAM PLANNER Oxygen Saturation 97% 06/02/2024 2:33 PM PROGRAM PLANNER Inhaled Oxygen Concentration - - Weight 75.8 kg (167 lb) 06/12/2024 1:15 PM PROGRAM PLANNER Height 162.6 cm (5' 4 ) 06/12/2024 1:15 PM PROGRAM PLANNER Body Mass Index 28.67 06/12/2024 1:15 PM PROGRAM PLANNER Plan of Treatment Health Maintenance Due Date Last Done Comments Zoster Vaccine (1 of 2) 01/26/2008 Covid-19 Vaccine (3 - season) 12/08/202304/2020, 06/09/2020 Influenza Vaccine (#1) 2023 Breast Cancer Screening-Mammogram 10/20/2024 024 Depression Screening 04/21/2025 04/21/2024, 05/15/19 24 Fall Risk Assessment 04/21/2025 04/21/2024, 05/15/2023, 04/15/2023 Well Visit 65+ 04/21/2025 04/21/2024 Lung Cancer Screening 06/13/2025 06/12/2024, 024 Osteoporosis Screening-Bone Density Scan 10/20/2025 10/21/2023 DTaP/Tdap/Td Vaccine (2 - Td or Tdap) 01/05/2029 01/05/2019, 06/06/2010, 03/29/2004 Colon Cancer Screening-Colonoscopy 10/20/20302020 Pneumococcal vaccine 65+ Completed 05/15/2023, 0304/2011 Hepatitis B Screening Completed 04/21/2024 Hepatitis C Screening Completed 04/21/2024 Procedures Procedure Name Priority Date/Time Associated Diagnosis Comments CT CHEST WO CONTRAST F/U LUNG SCREEN PROTOCOL Schedule Routine, Read Routine (OP Routine) 06/12/2024 1:14 PM PROGRAM PLANNER Abnormal CT lung screening Lung nodule T4, FREE Routine 04/21/2024 1:35 PM PROGRAM PLANNER Thyroid disease EGFR Routine 04/21/2024 1:35 PM PROGRAM PLANNER Essential hypertension DIFFERENTIAL AUTO Routine 04/21/2024 1:3 5 PM PROGRAM PLANNER Essential hypertension CBC WITH AUTO DIFFERENTIAL Routine 04/21/2024 1:35 PM PROGRAM PLANNER Essential hypertension COMPREHENSIVE METABOLIC PANEL Routine 04/21/2024 1:35 PM PROGRAM PLANNER Essential hypertension HEMOGLOBIN A1C Routine 04/21/2024 1:35 PM PROGRAM PLANNER Impaired fasting glucose LIPID PANEL Routine 04/21/2024 1:35 PM PROGRAM PLANNER Mixed hyperlipidemia ERYTHROCYTE SEDIMENTATION RATE Routine 04/21/2024 1:35 PM PROGRAM PLANNER Chronic diarrhea CRP (ACUTE PHASE) Routine 04/21/2024 1:3 5 PM PROGRAM PLANNER Chronic diarrhea THYROID FUNCTION CASCADE Routine 04/21/2024 1:35 PM PROGRAM PLANNER Thyroid disease HEPATITIS C ANTIBODY Routine 04/21/2024 1:35 PM PROGRAM PLANNER Need for hepatitis B screening test HEPATITIS B SURFACE ANTIGEN Routine 04/21/2024 1:35 PM PROGRAM PLANNER Need for hepatitis B screening test HEPATITIS B SURFACE ANTIBODY (IMMUNE STATUS) Routine 04/21/2024 1:35 PM PROGRAM PLANNER Need for hepatitis B screening test HEPATITIS B CORE ANTIBODY, TOTAL Routine 04/21/2024 1:35 PM PROGRAM PLANNER Need for hepatitis B screening test DEXA [...] F/U Lung Screen Protocol (06/12/2024 1:14 PM PROGRAM PLANNER) Anatomical Region Laterality Modality Chest N/A Computed [...] Michi Chauhan D.O. PS: PS Report ID: [id number] Reading Location: [id number] Procedure Note Michi Chauhan, DO - 06/16/2024 [...] 0.7 cm in the subcarinal region (axial [id number]). There is a small hiatal hernia. The [...] Michi Chauhan D.O. PS: PS Report ID: [id number] Reading Location: [place] [address] us Demar Marx MD IMG CT PROCEDURES Final Result * eGFR (04/21/2024 1:35 PM PROGRAM PLANNER) eGFR 78 >=60 mL/min/1. 73 m2 Comment: [...] last reviewed 2021. Blood 04/21/2024 1:35 PM PROGRAM PLANNER 04/21/2024 1:40 PM PROGRAM PLANNER us Demar Marx MD LAB BLOOD ORDERABLES Final Resul t [facility] ([place]) 1 [facility] [place] [address] * Differential, auto (04/21/2024 1:35 PM PROGRAM PLANNER) Neutrophil abs 5.6 1.5 - 6.5 K/cumm [...] revised on 2017. Blood 04/21/2024 1:35 PM PROGRAM PLANNER 04/21/2024 1:40 PM PROGRAM PLANNER Demar Marx MD LAB BLOOD ORDERABLES Final Resul t [facility] ([place]) 1 [facility] [place] [address] * (ABNORMAL) Thyroid Function Randall (04/21/2024 1:35 PM PROGRAM PLANNER) TSH 0.04(L) 0.30 - 4.20 mcIUnit/mL Blood 04/21/2024 1:35 PM PROGRAM PLANNER 04/21/2024 1:40 PM PROGRAM PLANNER Demar Marx MD LAB BLOOD ORDERABLES Final Resul t [facility] ([place]) 1 [facility] [place] [address] * (ABNORMAL) CBC with auto differential (04/21/2024 1:35 PM PROGRAM PLANNER) WBC 8.6 3.8 - 9.9 K/cumm Hgb [...] RDW SD 36.8 35.7 - 48.1 fL [facility] NRBC abs 0.00 0.00 - 0.01 K/cumm [facility] ([place] Blood 04/21/2024 1:35 PM PROGRAM PLANNER 04/21/2024 1:40 PM PROGRAM PLANNER us Demar Marx MD LAB BLOOD ORDERABLES Final Resul t [facility] ([place]) 1 [facility] [place] [address] * Hepatitis C antibody Blood (04/21/2024 1:35 PM PROGRAM PLANNER) Hep C Ab Nonreactive Nonreactive Comment: Interpretive [...] last revised on 2019. Testing performed by: [facility], [address] [place] [address]., [id number] Blood 04/21/2024 1:35 PM PROGRAM PLANNER 04/21/2024 3:46 PM PROGRAM PLANNER us Demar Marx MD LAB MICROBIOLOGY - GENERAL ORDER AGUSTIN Final Result [facility] ([place]) 1 [facility] [place] [address] * Hepatitis B core antibody, total Blood (04/21/2024 1:35 PM PROGRAM PLANNER) Hep B core IgG/IgM Nonreactive Nonreactive Comment:Testing performed by : [facility], [address] [place] [address]., [id number] Blood 04/21/2024 1:35 PM PROGRAM PLANNER 04/21/2024 3:59 PM PROGRAM PLANNER us Demar Marx MD LAB MICROBIOLOGY - GENERAL ORDER AGUSTIN Final Result Performing Organization Address City/[facility]/ZIP Co de Phone Number [facility] ([place]) 1 [place] [address] * Hepatitis B surface antibody (immune status) Blood (04/21/2024 1:35 PM PROGRAM PLANNER) HBsAb (immune status) Nonreactive Comment: Interpretive Data [...] last revised on 19. Testing performed by: [facility], [address] [place] [address]., [id number] Blood 04/21/2024 1:35 PM PROGRAM PLANNER 04/21/2024 3:46 PM PROGRAM PLANNER us Demar Marx MD LAB MICROBIOLOGY - GENERAL ORDER AGUSTIN Final Result [facility] ([place]) 1 [facility] [place] [address] * Hepatitis B Surface Antigen Blood (04/21/2024 1:35 PM PROGRAM PLANNER) HepBsAg Nonreactive Nonreactive Comment:Testing performed by : [facility], [address] [place] [address], [id number] Blood 04/21/2024 1:35 PM PROGRAM PLANNER 04/21/2024 3:46 PM PROGRAM PLANNER Demar Marx MD LAB MICROBIOLOGY - GENERAL ORDER AGUSTIN Final Result Performing Organization Address [facility] Co de Phone Number [facility] ([place]) 1 [facility] [place] [address] * (ABNORMAL) Erythrocyte sedimentation rate (04/21/2024 1:35 PM PROGRAM PLANNER) Pathologist [facility] Erythrocyte sedimentation rate 32(H) 1 - 30 mm/hr Blood 04/21/2024 1:35 PM PROGRAM PLANNER 04/21/2024 1:40 PM PROGRAM PLANNER Demar Marx MD LAB BLOOD ORDERABLES Final Resul t Performing Organization Address [facility]/ZIP Co de Phone Number [facility] ([place]) 1 [facility] [place] [address] * CRP (acute phase) (04/21/2024 1:35 PM PROGRAM PLANNER) CRP <3.0 <=10.0 mg/L Blood 04/21/2024 1:35 PM PROGRAM PLANNER 04/21/2024 1:40 PM PROGRAM PLANNER Demar Marx MD LAB BLOOD ORDERABLES Final Resul t [facility] ([place]) 1 [facility] [place] [address] * (ABNORMAL) T4, free (04/21/2024 1:35 PM PROGRAM PLANNER) [facility] Free T4 1.90(H) 0.90 - 1.70 ng/dL Blood 04/21/2024 1:35 PM PROGRAM PLANNER 04/21/2024 1:40 PM PROGRAM PLANNER Narrative [facility] ([place]) - 04/21/2024 8:48 PM PROGRAM PLANNER This test was reflexed from a TSH result. Demar Marx MD LAB BLOOD ORDERABLES Final Resul t Performing Organization Address [facility] de Phone Number [facility] ([place]) [address] [place] [address] [place] [address] * Hemoglobin A1c (04/21/2024 1:35 PM PROGRAM PLANNER) [facility] Hgb A1C 5.2 4.0 - 5.6 % Estimated Average Glucose 103 mg/dL [facility] ([place]) Comment: The ADA recommends reporting an estimated Average Glucose (eAG) with all Hemoglobin A1c results using the equation derived from a study of 507 normal and diabetic adults. Minority populations were underrepresented and children were not included. (Diabetes Care 31:0541-1986, 2008). The eAG is not equivalent to a fasting glucose. Blood 04/21/2024 1:35 PM PROGRAM PLANNER 04/21/2024 1:40 PM PROGRAM PLANNER Demar Marx MD LAB BLOOD ORDERABLES Final Resul t [facility] ([place]) 1 [facility] [place] [address] * Lipid panel (04/21/2024 1:35 PM PROGRAM PLANNER) [facility] Cholesterol 137 30 - 199 mg/dL Comment: [...] mg/dL High: >160 mg/dL Calculated using the Ndiaye LDL-C estimating equation. This equation was implemented on 2023. Prior to this date LDL-C was estimated using the Friedewald equation. Literature References: 1. Expert Panel on Integrated Guidelines for Cardiovascular Health and Risk Reduction in Children and Adolescents. Pediatrics 2011;128:S213 2. NCEP Expert Panel. Circulation 2004;110:227 3. Senthil M et al. IGNACIO Cardiol. 2020 August 06;5(5):540-548. doi: 10.1001/jamacardio.2020.0013 Current Interpretive Data was last revised on 2023. Non-HDL Cholesterol 76 mg/dL [facility] ([place]) Comment: Interpretive Data Ages < or [...] last revised on 2017. Chol/HDL ratio 2 [facility] ([place]) Blood 04/21/2024 1:35 PM PROGRAM PLANNER 04/21/2024 1:40 PM PROGRAM PLANNER us Demar Marx MD LAB BLOOD ORDERABLES Final Resul t [facility] ([place]) 1 [facility] [place] [address] * (ABNORMAL) Comprehensive metabolic panel (04/21/2024 1:35 PM PROGRAM PLANNER) Sodium 146(H) 135 - 145 mmol/L Potassium, pl 3.3 3.3 - 4.9 mmol/L [facility] ([place]) Chloride 104 97 - 110 mmol/L [facility] ([place]) CO2 32 22 - 32 [...] [facility] ([place]) Blood 04/21/2024 1:35 PM PROGRAM PLANNER 04/21/2024 1:40 PM PROGRAM PLANNER us Demar Marx MD LAB BLOOD ORDERABLES Final Resul t [facility] ([place]) 1 [facility] [place] [address] * Dexa Axial Skeleton Bone Density 1 Or 2 Site (10/21/2023 3:16 PM CDT) Anatomical Region Laterality Modality Body N/A Other 10/21/2023 7:47 PM CDT Narrative 10/21/2023 7:48 PM CDT EXAM DESCRIPTION: DEXA AXIAL SKELETON BONE DENSITY 1 OR MORE SITES REASON FOR STUDY: 63 y/o year old F with given history of: osteoporosis screening Screening. 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 MF: TIAN Report ID: [id number] Reading Location: [id number] Procedure Note Dann Ramos MD - 10/21/2023 EXAM DESCRIPTION: DEXA AXIAL SKELETON BONE DENSITY 1 OR MORE SITES REASON FOR STUDY: 63 y/o year old F with given history of:osteoporosis screening Screening. 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 MF: TIAN Report ID: [id number] Reading Location: [place] [address] Demar Marx MD [facility] DXA PROCEDURES Final [...] no suspicious interval change. Demar Marx MD G MAMMO PROCEDURES Final Resul t from Last 3 Months or Most Recently Relevant to Health Maintenance Insurance [employer] MEDICARE GOLD Advance Directives For more information, please contact: [phone] * Full Code (Latest Code Status on File) Date Activated Date Inactivated Comments 04/11/2023 11:21 PM 04/15/2023 9:43 PM Care Teams Conductor Freight Relationship Specialty Start Date End Date Demar Marx MD [address] [place] [address] PCP - General Family Medicine 05/15/23 Jese Candelaria MD [address] [place] [address] Consulting Physician Pulmonary Disease 04/15/23
--- OUTSIDE RECORDS SUMMARY | 2024-07-07 17:20 | XMS_ITS | Encounter Summary ---
Author Organization [facility] Address [address] [place] [address] Care Team Providers Care Mineral Surveying Technician Name Role Phone Peter Sawant Primary Care Provider [phone] Abhijeet Carvajal MD Unavailable [phone] Norris Coulter MD Unavailable [phone] Fredy Foreman MD Unavailable [phone] Marv Roper Unavailable Evelyn Chavez MD Unavailable Encounter Details Date Type Department Care Team (Late st Contact Info) Description 06/21/2016 Scanned Document [facility] [address] [place], [place] [id number] Abhijeet Carvajal MD [address] [place], [place] [id number] Social History Tobacco Use Types Packs/Day Years [...] of Assessment Author No 04/19/2016 10:07 AM HOURLY SIGN LANGUAGE INTERPRETER * Does this person have serious difficulty walking or climbing stairs? Answer Date of Assessment Author No 04/19/2016 10:07 AM HOURLY SIGN LANGUAGE INTERPRETER * Does this person have difficulty dressing or bathing? Answer Date of Assessment Author Yes 04/19/2016 10:07 AM HOURLY SIGN LANGUAGE INTERPRETER documented as of this encounter Plan of Treatment Not on file documented as of this encounter Visit Diagnoses Not on filedocumented in this encounter Care Teams Mineral Surveying Technician Relationship Specialty Start Date End Date Peter Sawant DO PCP - General Family Medicine 08/08/15 Abhijeet Carvajal MD Surgeon Neurosurgery 11/03/15 Norris Coulter MD [address] [place] [id number] Consulting Physician Pulmonary Disease 11/03/15 Fredy Foreman MD [address] [place] [address] Corporate Meeting Planner Cardiovascular Disease 11/03/15 Marv Roper PA [address] [place] [id number] Physician Division Controller Neurosurgery 11/03/15 Evelyn Chavez MD [address] [place] [address] Consulting Physician Rheumatology 05/03/20 documented as of this encounter
--- OUTSIDE RECORDS SUMMARY | 2024-07-07 17:20 | XMS_ITS | Encounter Summary ---
Author Organization [facility] Address [address] [place] [address] Care Team Providers Care Automatic Hemmer Name Role Phone SavanaPeter eckert Primary Care Provider [phone] Abhijeet Carvajal MD Unavailable [phone] Norris Coulter MD Unavailable [phone] Fredy Foreman MD Unavailable [phone] Marv Roper Unavailable Evelyn Chavez MD Unavailable Encounter Details Date Type Department Care Team (Late st Contact Info) Description 08/10/2016 Scanned Document [facility] [address] [place] [address] Marv Roper PA [address] [place] [address] Social History Tobacco Use Types Packs/Day Years [...] on filedocumented in this encounter Care Teams Automatic Hemmer Relationship Specialty Start Date End Date Peter Sawant DO PCP - General Family Medicine 08/08/15 Abhijeet Carvajal MD Surgeon Neurosurgery 11/03/15 Norris Coulter MD [address] [place] [address] Consulting Physician Pulmonary Disease 11/03/15 Fredy Foreman MD [address] [place] [address] Dental Ceramist Cardiovascular Disease 11/03/15 Marv Roper PA [address] [place] [address] Physician Biomedical Engineer Neurosurgery 11/03/15 Evelyn Chavez MD [address] [place] [phone] Consulting Physician Rheumatology 05/03/20 documented as of this encounter
--- OUTSIDE RECORDS SUMMARY | 2024-07-07 17:20 | XMS_ITS | Clinical Summary ---
Author Organization [facility] Address [address] [address] Phone Care Team Providers Care Director Of Pupil Personnel Program Name Role Phone Unavailable Primary Care Provider Unavailabl e Social History Tobacco Use Types Packs/Day Years Used Date Smoking Tobacco: Never Assessed Comments Unknown Sex and Gender Information Value Date Recorded Sex Assigned at Not on file Legal Sex Female 5:53 PM CDT Gender Identity Not on file Sexual Orientation Not on file Last Filed Vital Signs Vital Sign Reading Time Taken Comments Blood Pressure 132/61 07/05/2020 11:30 AM CDT Pulse 63 07/05/2020 11:30 AM CDT Temperature 36.8 C (98.2 F) 07/05/2020 11:30 AM CDT Respiratory Rate - - Oxygen Saturation - - Inhaled Oxygen Concentration - - Weight 71.7 kg (158 lb) 07/05/2020 11:30 AM CDT Height 162.6 cm (5' 4 ) 07/05/2020 11:30 AM CDT Body Mass Index 27.12 07/05/2020 11:30 AM CDT Plan of Treatment Not on file
--- OUTSIDE RECORDS SUMMARY | 2024-07-07 17:22 | XMS_ITS | Continuity of Care Document ---
Author Name [facility] Organization [facility] Care Team Providers Care Director Of Transportation Name Role Phone [facility] Unavailable Unavailable Problems Combined list of problems from Department of Defense and [facility] Affairs facilities. It does not include entries that were removed or entered in error. Problem Status Onset Date Problem Type Date of Resolution Comments Source Allergic Rhinitis (SCT 20577336) Active Condition [facility] Anxiety Active Condition [facility] Anxiety disorder Active Condition [facility] Benign essential hypertension (SNOMED CT 3188213) Active Condition [facility] CAD - Coronary Artery Disease (SCT 27327793) Active Condition Jun 07, 2023 Entered By: RACHEL FLYNN Comment: H/O CABG [facility] CHF - Congestive Heart Failure (SCT 60439253) Active Condition [facility] Chronic obstructive lung disease Active Condition [facility] COPD - Chronic Obstructive Pulmonary Disease (SCT 18723732) Active Condition [facility] Coronary Artery Disease * Active Condition [facility] H/O: hysterectomy Active Condition [facility] History of cholecystectomy Active Condition [facility] History of coronary artery bypass grafting Active Condition Dec 28, 2014 Entered By: Corie DOBBINS Comment: CABG 06/2010 [facility] HTN - Hypertension (SCT 29468499) Active Condition [facility] Hypothyroidism (SCT 93479791) Active Condition [facility] Hypothyroidism (SNOMED CT 49431033) Active Condition [facility] Insomnia Active Condition [facility] Major depressive disorder Active Condition [facility] Major depressive disorder (SNOMED CT 786291508) Active Condition [facility] Nicotine dependence (SNOMED CT 89605909) Active Condition [facility] Obstructive Sleep Apnea of Adult (SCT 7941674707875) Active Condition [facility] Obstructive sleep apnea syndrome Active Condition [facility] Osteopenia Active Condition [facility] Pain in joint involving ankle and foot (ICD-9-CM 719.47) Active Condition [facility] Tobacco User (SCT 163442861) Active Condition [facility] Diagnosis: ICD-10-CM I25.10 Athscl heart disease of [place] coronary artery w/o ang pctrs Active Diagnosis [facility] Diagnosis: ICD-10-CM Z71.89 Other specified counseling Active Diagnosis [facility] Diagnosis: ICD-10-CM Z55.9 Problems related to education and literacy, unspecified Active Diagnosis [facility] Diagnosis: ICD-10-CM Z00.00 Encntr for general adult medical exam w/o abnormal findings Active Diagnosis [facility] Medications Combined list of outpatient medications from Department of Defense and [facility] Affairs facilities.Medications provided include 1) outpatient medications from the last 15 months, and 2) patient-reported medications. Medication Details Route Status Patient Instructions Prescription Expires Prescription Number Last Dispense Date Ordering Provider Order Date Order Qty Source 0 NON-VA MEDICATION ASSESSMENT DONE [facility] USE NISOLDIP INE ER 17 MG DIRECTED DAILY NOT APPLIC ABLE ACTIVE MEERA GOLDMAN 2016 [facility] ALBUTEROL SO4 0.083% INHL,3ML,UD USE 1 VIAL (3ML) INHALED UD PRN RESPIR ATORY (INHAL ATION) ACTIVE MEERA GOLDMAN 2016 [facility] ALBUTEROL SO4 90MCG/ACTUA T (CFC-F) INHL,ORAL,8 .5GM INHALE 2 PUFFS BY ORAL INHALATI ON FOUR TIMES A DAY RESPIR ATORY (INHAL ATION) ACTIVE JAMISON FLYNN 2024 [facility] ASPIRIN 81MG TAB,EC TAKE ONE TABLET BY MOUTH DAILY ORAL ACTIVE MEERA GOLDMAN 2014 [facility] AZELASTINE HCL 137MCG/SPRA Y INHL,NASAL, 30ML SPRAY 1 SPRAY IN NOSTRIL( S) TWICE A DAY NASAL ACTIVE JAMISON FLYNN 2024 [facility] BUPROPION HCL 300MG 24HR TAB,SA TAKE ONE TABLET BY MOUTH ONCE A DAY FOR DEPRESSI ON SWALLOW WHOLE - DO NOT CRUSH OR CHEW. ORAL ACTIVE 05/01/2025 [id number] 5 JAMISON FLYNN 2024 90 [facility] BUPROPION HCL 300MG 24HR TAB,SA TAKE ONE TABLET BY MOUTH ONCE A DAY FOR DEPRESSI ON SWALLOW WHOLE - DO NOT CRUSH OR CHEW. ORAL DISCONT INUED 09/25/2024 [id number] 4 JAMISON FLYNN 2023 90 [facility] CARVEDILOL 25MG TAB TAKE ONE TABLET BY MOUTH TWICE A DAY ORAL ACTIVE MEERA GOLDMAN 2015 [facility] CHOLECALCIF KRISTYN (LOW DOSE VIT D) - (OTC) TAB TAKE BY MOUTH ONCE A DAY ORAL ACTIVE JAMISON FLYNN 2024 [facility] CHOLECALCIF KRISTYN 25MCG (1,000UNIT) TAB TAKE ONE TABLET BY MOUTH DAILY ORAL ACTIVE FAHEEM PALACIOS 2017 [facility] CLONIDINE HCL 0.1MG TAB TAKE ONE TABLET BY MOUTH ONCE A DAY ORAL ACTIVE JAMISON FLYNN 2024 [facility] CLOPIDOGREL BISULFATE 75MG TAB TAKE ONE TABLET BY MOUTH DAILY ORAL ACTIVE MEERA GOLDMAN 2017 [facility] CLOPIDOGREL BISULFATE 75MG TAB TAKE ONE TABLET BY MOUTH ONCE A DAY ORAL ACTIVE JAMISON FLYNN 2024 [facility] DULOXETINE HCL 60MG CAP,EC TAKE ONE CAPSULE BY MOUTH TWICE A DAY FOR DEPRESSI ON DO NOT ABRUPTLY DISCONTI NUE MEDICATI ON. ORAL ACTIVE 05/01/2025 [id number] 5 JAMISON FLYNN [address] [place] [address] [facility] DULOXETINE HCL 60MG CAP,EC TAKE ONE CAPSULE BY MOUTH TWICE A DAY FOR DEPRESSI ON DO NOT ABRUPTLY DISCONTI NUE MEDICATI ON. ORAL DISCONT INUED 11/07/2024 [id number] NAMRATA MULLINS 2023 180 [facility] DULOXETINE HCL 60MG CAP,EC TAKE ONE CAPSULE BY MOUTH ONCE A DAY FOR DEPRESSI ON DO NOT ABRUPTLY DISCONTI NUE MEDICATI ON. ORAL DISCONT INUED (EDIT) 09/25/2024 [id number] JAMISON FLYNN Tesha 2023 90 [facility] HYDROCHLORO THIAZIDE 25MG TAB TAKE ONE-HALF TABLET BY MOUTH ONCE A DAY ORAL ACTIVE JAMISON FLYNN 2024 [facility] ISOSORBIDE MONONITRATE 30MG TAB,SA TAKE ONE TABLET BY MOUTH ONCE A DAY ORAL ACTIVE JAMISON FLYNN 2024 [facility] LEVOTHYROXI NE NA 150MCG TAB (SYNTHROID) TAKE ONE TABLET BY MOUTH EVERY MORNING BEFORE A MEAL ORAL ACTIVE JAMISON FLYNN 2024 [facility] [place] POTASSIUM 100MG TAB TAKE ONE TABLET BY MOUTH DAILY ORAL ACTIVE MEERA GOLDMAN 2015 [facility] [place] POTASSIUM 100MG TAB TAKE ONE TABLET BY MOUTH ONCE A DAY ORAL ACTIVE JAMISON FLYNN 2024 [facility] MONTELUKAST NA 10MG TAB TAKE ONE TABLET BY MOUTH EVERY EVENING ORAL ACTIVE JAMISON FLYNN 2024 [facility] MULTIVITAMI NS CAP/TAB TAKE ONE TABLET BY MOUTH ONCE A DAY ORAL ACTIVE GEE JAMISON Tesha 2024 [facility] NISOLDIPINE (24HR SR) TAB,SA TAKE 17MG BY MOUTH ONCE A DAY ORAL ACTIVE JAMISON FLYNN 2024 [facility] ROSUVASTATI N CA 20MG TAB TAKE ONE-HALF TABLET BY MOUTH DAILY ORAL ACTIVE MEERA GOLDMAN 2014 [facility] ROSUVASTATI N CA 20MG TAB TAKE ONE-HALF TABLET BY MOUTH EVERY EVENING ORAL ACTIVE JAMISON FLYNN 2024 [facility] TIOTROPIUM 2.5MCG/ACTU AT INHL,ORAL,6 0D,4GM INHALE 1 BY ORAL INHALATI ON DAILY RESPIR ATORY (INHAL ATION) ACTIVE MEERA GOLDMAN 2014 [facility] TRAZODONE HCL 100MG TAB TAKE ONE TABLET BY MOUTH AT BEDTIME NEEDED FOR INSOMNIA ORAL SUSPEND ED 05/01/2025 [id number] 5 JAMISON FLYNN 2024 90 [facility] TRAZODONE HCL 100MG TAB TAKE ONE TABLET BY MOUTH AT BEDTIME NEEDED FOR INSOMNIA ORAL DISCONT INUED 08/04/2024 [id number] JAMISON FLYNN 2023 90 [facility] Allergies, Adverse Reactions, Alerts Combined list of allergies from Department of Defense and Veterans Affairs facilities. It does not include entries that were removed or entered in error. Substance Category Reaction Severity Reaction type Status Date Reported Comments Source ADHESIVES Propensity to adverse reaction (finding) Eruption active 4 [facility] ATORVASTATIN Propensity to adverse reactions to drug (finding) Muscle pain active 4 [facility] CECLOR Propensity to adverse reactions to drug (finding) active 9 [facility] CECLOR Propensity to adverse reactions to drug (finding) Eruption active 4 [facility] [place] Propensity to adverse reaction (finding) Nasal congestion active 4 [facility] CYCLOBENZAPR INE Propensity to adverse reactions to drug (finding) Eruption active 9 [facility] [place] Propensity to adverse reaction (finding) Nasal congestion active 4 [facility] INFLUENZA Propensity to adverse reactions to drug (finding) Urticaria, Eruption active 4 [facility] NICOTINE PATCH Propensity to adverse reactions to drug (finding) Eruption active 4 [facility] ZOLPIDEM Propensity to adverse reactions to drug (finding) active 5 [facility] ZOLPIDEM Propensity to adverse reactions to drug (finding) Akinesia active 4 [facility] Immunizations Combined list of available immunizations from the Department of Defense and Veterans Affairs facilities. Immunization Series Date Given Administered By Site Reaction Lot Number CVX Code Drug Space Technologist Status Comments Source TDAP 2018 115 complet ed [facility] PNEUMOCOCCAL POLYSACCHARID E PPV23 2011 33 complet ed had record [facility] TD(ADULT) UNSPECIFIED FORMULATION 2010 139 complet ed [facility] TD(ADULT) UNSPECIFIED FORMULATION 2003 139 complet ed [facility] Results Combined list of recent chemistry, hematology and other laboratory results from Department of Defense and Veterans Affairs, ranging from 15 months to all on record, depending upon the facility. Order Name Results Value Reference Range Date Interpretation Specimen Comments Source CBC LEUKOCYTES [#/VOLUME] IN BLOOD BY AUTOMATED COUNT 7.0 10*3/uL 3.6 - 11.2 06/06 Specimen Type: BLOOD No comment entered. Ordering Provider: EMELIA FLYNN Report Released Date/Time: Jun 07, 2023 12:59 PM Reporting Lab: [facility] [address] [place] [phone] Performing Lab: [facility] [address] [place] [phone] [place] [address] [facility] CBC ERYTHROCYTE S [#/VOLUME] IN BLOOD BY AUTOMATED COUNT 4.76 10*6/uL 3.60 - 5.00 06/06 Specimen Type: BLOOD No comment entered. Ordering Provider: EMELIA FLYNN Report Released Date/Time: Jun 07, 2023 12:59 PM Reporting Lab: [facility] [address] [place] [phone] Performing Lab: [facility] [address] [place] [phone] [facility] CBC HEMOGLOBIN [MASS/VOLUM E] IN BLOOD 12.9 g/dL 11.0 - 14.9 06/06 Specimen Type: BLOOD No comment entered. Ordering Provider: EMELIA FLYNN Report Released Date/Time: Jun 07, 2023 12:59 PM Reporting Lab: [facility] [address] [place] [phone] Performing Lab: [facility] [address] [place] [phone] [place] [address] [facility] CBC HEMATOCRIT [VOLUME FRACTION] OF BLOOD 39.7 32.6 - 43.4 06/06 Specimen Type: BLOOD No comment entered. Ordering Provider: EMELIA FLYNN Report Released Date/Time: Jun 07, 2023 12:59 PM Reporting Lab: [address] [phone] Performing Lab: [place] [phone] [place] [address] [facility] CBC MCV [ENTITIC VOLUME] BY AUTOMATED COUNT 83.4 fL 80.0 - 100.0 06/06 Specimen Type: BLOOD No comment entered. Ordering Provider: EMELIA FLYNN Report Released Date/Time: Jun 07, 2023 12:59 PM Reporting Lab: [place] [phone] Performing Lab: [place] [phone] [place] [address] [facility] CBC MCH [ENTITIC MASS] BY AUTOMATED COUNT 27.1 pg 27.0 - 34.0 06/06 Specimen Type: BLOOD No comment entered. Ordering Provider: EMELIA FLYNN Report Released Date/Time: Jun 07, 2023 12:59 PM Reporting Lab: [address] [phone] Performing Lab: [phone] [place] [address] [facility] CBC MCHC [MASS/VOLUM E] BY AUTOMATED COUNT 32.5 g/dL 33.0 - 36.0 06/06 L Specimen Type: BLOOD No comment entered. Ordering Provider: EMELIA FLYNN Report Released Date/Time: Jun 07, 2023 12:59 PM Reporting Lab: [address] [phone] Performing Lab: [address] [phone] [place] [address] [facility] CBC PLATELETS [#/VOLUME] IN BLOOD BY AUTOMATED COUNT 220 10*3/uL 150 - 400 06/06 Specimen Type: BLOOD No comment entered. Ordering Provider: EMELIA FLYNN Report Released Date/Time: Jun 07, 2023 12:59 PM Reporting Lab: [facility] [address] [place] [phone] Performing Lab: [facility] [address] [place] [phone] [facility] CBC PLATELET MEAN VOLUME [ENTITIC VOLUME] IN BLOOD BY AUTOMATED COUNT 9.6 fL 7.5 - 11.2 06/06 Specimen Type: BLOOD No comment entered. Ordering Provider: EMELIA FLYNN Report Released Date/Time: Jun 07, 2023 12:59 PM Reporting Lab: [facility] [address] [place] [phone] Performing Lab: [address] [facility] CBC ERYTHROCYTE DISTRIBUTIO N WIDTH [RATIO] BY AUTOMATED COUNT 12.6 11.8 - 15.1 06/06 Specimen Type: BLOOD No comment entered. Ordering Provider: EMELIA FLYNN Report Released Date/Time: Jun 07, 2023 12:59 PM Reporting Lab: [facility] [address] [place] [phone] Performing Lab: [facility] [address] [place] [address] [phone] [facility] CBC LYMPHOCYTES /100 LEUKOCYTES IN BLOOD BY AUTOMATED COUNT 27 06/06 Specimen Type: BLOOD No comment entered. Ordering Provider: EMELIA FLYNN Report Released Date/Time: Jun 07, 2023 12:59 PM Reporting Lab: [facility] [address] [place] [phone] Performing Lab: [facility] [address] [place] [phone] [facility] CBC MONOCYTES/1 00 LEUKOCYTES IN BLOOD BY AUTOMATED COUNT 7 06/06 Specimen Type: BLOOD No comment entered. Ordering Provider: EMELIA FLYNN Report Released Date/Time: Jun 07, 2023 12:59 PM Reporting Lab: [facility] [address] [place] [phone] Performing Lab: [facility] [address] [place] [phone] [facility] CBC NEUTROPHILS /100 LEUKOCYTES IN BLOOD BY AUTOMATED COUNT 64 06/06 Specimen Type: BLOOD No comment entered. Ordering Provider: EMELIA FLYNN Report Released Date/Time: Jun 07, 2023 12:59 PM Reporting Lab: [facility] [address] [place] [phone] Performing Lab: [address] [phone] [place] [address] [facility] CBC EOSINOPHILS /100 LEUKOCYTES IN BLOOD BY AUTOMATED COUNT 2 06/06 Specimen Type: BLOOD No comment entered. Ordering Provider: EMELIA FLYNN Report Released Date/Time: Jun 07, 2023 12:59 PM Reporting Lab: [facility] [address] [place] [phone] Performing Lab: [address] [phone] [place] [address] [facility] CBC BASOPHILS/1 00 LEUKOCYTES IN BLOOD BY AUTOMATED COUNT 1 06/06 Specimen Type: BLOOD No comment entered. Ordering Provider: EMELIA FLYNN Report Released Date/Time: Jun 07, 2023 12:59 PM Reporting Lab: [facility] [address] [place] [phone] Performing Lab: [address] [phone] [facility] CBC LYMPHOCYTES [#/VOLUME] IN BLOOD BY AUTOMATED COUNT 1.86 10*3/uL 0.77 - 4.50 06/06 Specimen Type: BLOOD No comment entered. Ordering Provider: EMELIA FLYNN Report Released Date/Time: Jun 07, 2023 12:59 PM Reporting Lab: [facility] [address] [place] [phone] Performing Lab: [address] [phone] [facility] CBC MONOCYTES [#/VOLUME] IN BLOOD BY AUTOMATED COUNT 0.47 10*3/uL 0.19 - 0.80 06/06 Specimen Type: BLOOD No comment entered. Ordering Provider: EMELIA FLYNN Report Released Date/Time: Jun 07, 2023 12:59 PM Reporting Lab: [place] [phone] Performing Lab: [address] [phone] [facility] CBC NEUTROPHILS [#/VOLUME] IN BLOOD BY AUTOMATED COUNT 4.48 10*3/uL 2.10 - 8.00 06/06 Specimen Type: BLOOD No comment entered. Ordering Provider: EMELIA FLYNN Report Released Date/Time: Jun 07, 2023 12:59 PM Reporting Lab: [place] [phone] Performing Lab: [address] [phone] [facility] CBC EOSINOPHILS [#/VOLUME] IN BLOOD BY AUTOMATED COUNT 0.16 10*3/uL 0.00 - 0.60 06/06 Specimen Type: BLOOD No comment entered. Ordering Provider: EMELIA FLYNN Report Released Date/Time: Jun 07, 2023 12:59 PM Reporting Lab: [address] [phone] Performing Lab: [address] [phone] [facility] CBC BASOPHILS [#/VOLUME] IN BLOOD BY AUTOMATED COUNT 0.05 10*3/uL 0.00 - 0.20 06/06 Specimen Type: BLOOD No comment entered. Ordering Provider: EMELIA FLYNN Report Released Date/Time: Jun 07, 2023 12:59 PM Reporting Lab: [place] [address] Performing Lab: [place] [address] [facility] [address] [address] [phone] [facility] COMPREHEN SIVE METABOLIC PANEL CREATININE [MASS/VOLUM E] IN SERUM OR PLASMA 1.04 mg/dL 0.6 - 1.1 06/06 Specimen Type: PLASMA Comment: No hemolysis noted. Ordering Provider: EMELIA FLYNN Report Released Date/Time: Jun 07, 2023 12:59 PM Reporting Lab: [address] [phone] Performing Lab: [place] [address] [facility] [phone] [facility] COMPREHEN SIVE METABOLIC PANEL UREA NITROGEN [MASS/VOLUM E] IN SERUM OR PLASMA 15.6 mg/dL 9.0 - 25.0 06/06 Specimen Type: PLASMA Comment: No hemolysis noted. Ordering Provider: EMELIA FLYNN Report Released Date/Time: Jun 07, 2023 12:59 PM Reporting Lab: [place] [address] [facility] [phone] Performing Lab: [address] [phone] [place] [address] [facility] COMPREHEN SIVE METABOLIC PANEL GLUCOSE [MASS/VOLUM E] IN SERUM OR PLASMA 97 mg/dL 72 - 99 06/06 Specimen Type: PLASMA Comment: No hemolysis noted. Ordering Provider: EMELIA FLYNN Report Released Date/Time: Jun 07, 2023 12:59 PM Reporting Lab: [address] [phone] Performing Lab: [address] [phone] [facility] COMPREHEN SIVE METABOLIC PANEL SODIUM [MOLES/VOLU ME] IN SERUM OR PLASMA 142 meq/L 136 - 145 06/06 Specimen Type: PLASMA Comment: No hemolysis noted. Ordering Provider: EMELIA FLYNN Report Released Date/Time: Jun 07, 2023 12:59 PM Reporting Lab: [address] [phone] Performing Lab: [facility] [address] [facility] [address] [address] [facility] COMPREHEN SIVE METABOLIC PANEL POTASSIUM [MOLES/VOLU ME] IN SERUM OR PLASMA 3.7 meq/L 3.5 - 5 06/06 Specimen Type: PLASMA Comment: No hemolysis noted. Ordering Provider: EMELIA FLYNN Report Released Date/Time: Jun 07, 2023 12:59 PM Reporting Lab: [place] [address] [facility] [address] Performing Lab: [place] [address] [facility] [address] [facility] COMPREHEN SIVE METABOLIC PANEL CHLORIDE [MOLES/VOLU ME] IN SERUM OR PLASMA 105 meq/L 98 - 107 06/06 Specimen Type: PLASMA Comment: No hemolysis noted. Ordering Provider: EMELIA FLYNN Report Released Date/Time: Jun 07, 2023 12:59 PM Reporting Lab: [place] [address] [facility] [phone] Performing Lab: [place] [address] [facility] [address] [facility] COMPREHEN SIVE METABOLIC PANEL CARBON DIOXIDE, TOTAL [MOLES/VOLU ME] IN SERUM OR PLASMA 26 meq/L 22 - 31 06/06 Specimen Type: PLASMA Comment: No hemolysis noted. Ordering Provider: EMELIA FLYNN Report Released Date/Time: Jun 07, 2023 12:59 PM Reporting Lab: [facility] [address] Performing Lab: [place] [address] [facility] [phone] [facility] COMPREHEN SIVE METABOLIC PANEL CALCIUM [MASS/VOLUM E] IN SERUM OR PLASMA 9.7 mg/dL 8.4 - 10.4 06/06 Specimen Type: PLASMA Comment: No hemolysis noted. Ordering Provider: EMELIA FLYNN Report Released Date/Time: Jun 07, 2023 12:59 PM Reporting Lab: [facility] [address] [place] [facility] [address] Performing Lab: [facility] [address] [facility] COMPREHEN SIVE METABOLIC PANEL PROTEIN [MASS/VOLUM E] IN SERUM OR PLASMA 6.7 g/dL 6 - 8.6 06/06 Specimen Type: PLASMA Comment: No hemolysis noted. Ordering Provider: EMELIA FLYNN Report Released Date/Time: Jun 07, 2023 12:59 PM Reporting Lab: [place] [address] [facility] [address] Performing Lab: [place] [address] [facility] [phone] [facility] COMPREHEN SIVE METABOLIC PANEL ALBUMIN [MASS/VOLUM E] IN SERUM OR PLASMA 4.1 g/dL 3.4 - 5 06/06 Specimen Type: PLASMA Comment: No hemolysis noted. Ordering Provider: EMELIA FLYNN Report Released Date/Time: Jun 07, 2023 12:59 PM Reporting Lab: [facility] [address] Performing Lab: [place] [address] [facility] [address] [facility] COMPREHEN SIVE METABOLIC PANEL BILIRUBIN.T OTAL [MASS/VOLUM E] IN SERUM OR PLASMA 0.6 mg/dL 0.2 - 1.2 06/06 Specimen Type: PLASMA Comment: No hemolysis noted. Ordering Provider: EMELIA FLYNN Report Released Date/Time: Jun 07, 2023 12:59 PM Reporting Lab: [facility] [address] Performing Lab: [address] [phone] [facility] COMPREHEN SIVE METABOLIC PANEL ALKALINE PHOSPHATASE [ENZYMATIC ACTIVITY/VO LUME] IN SERUM OR PLASMA 97 U/L 40 - 150 06/06 Specimen Type: PLASMA Comment: No hemolysis noted. Ordering Provider: EMELIA FLYNN Report Released Date/Time: Jun 07, 2023 12:59 PM Reporting Lab: [facility] [address] [facility] [address] [address] Performing Lab: [place] [address] [facility] [address] [facility] COMPREHEN SIVE METABOLIC PANEL ASPARTATE AMINOTRANSF ERASE [ENZYMATIC ACTIVITY/VO LUME] IN SERUM OR PLASMA 15 U/L 5 - 34 06/06 Specimen Type: PLASMA Comment: No hemolysis noted. Ordering Provider: EMELIA FLYNN Report Released Date/Time: Jun 07, 2023 12:59 PM Reporting Lab: [place] [address] [address] [address] Performing Lab: [place] [address] [address] [address] [facility] COMPREHEN SIVE METABOLIC PANEL ALANINE AMINOTRANSF ERASE [ENZYMATIC ACTIVITY/VO LUME] IN SERUM OR PLASMA 14 U/L 8 - 40 06/06 Specimen Type: PLASMA Comment: No hemolysis noted. Ordering Provider: EMELIA FLYNN Report Released Date/Time: Jun 07, 2023 12:59 PM Reporting Lab: [place] [address] [facility] [address] Performing Lab: [place] [address] [facility] [address] [place] [address] [facility] COMPREHEN SIVE METABOLIC PANEL GLOMERULAR FILTRATION RATE/1.73 SQ M.PREDICTED [VOLUME RATE/AREA] IN SERUM, PLASMA OR BLOOD BY CREATININE- BASED FORMULA (CKD-EPI 2020) 59.7 60 06/06 Specimen Type: PLASMA Comment: No hemolysis noted. Ordering Provider: EMELIA FLYNN Report Released Date/Time: Jun 07, 2023 12:59 PM Reporting Lab: [facility] [address] Performing Lab: [place] [address] [facility] [address] [facility] HEP C Ab HCV Ab (STL) HEPATITIS C VIRUS AB [PRESENCE] IN SERUM Nonreact kena 06/06 Specimen Type: SERUM No comment entered. Ordering Provider: EMELIA FLYNN Report Released Date/Time: Jun 07, 2023 12:59 PM Reporting Lab: [facility] [address] [place] [address] Performing Lab: [facility] [address] [place] [address] [facility]OC HGA1C HEMOGLOBIN A1C/HEMOGLO BIN.TOTAL IN BLOOD 5.6 4.0 - 6.0 06/06 H Specimen Type: BLOOD Comment: NOTIFIED JAMISON FLYNN RN FIRST ASSIST ON 06/07/23 @ 2226 MTS HGA1C reported incorrectly as 6.3 by [[id number]]. Changed to 5.6 on Jun 07, 2023@22:26 by [[id number]]. HGA1C flagged incorrectly as H by [[id number]]. Changed to normal on Jun 07, 2023@22:26 by [[id number]]. Ordering Provider: EMELIA FLYNN Report Released Date/Time: Jun 07, 2023 12:59 PM Reporting Lab: [facility] [place] [address] Performing Lab: [facility] [address] [place] [address] CBOC HIV COMBO FOURTH GENERATIO N (STL) HIV 1+2 AB+HIV1 P24 AG [PRESENCE] IN SERUM OR PLASMA BY IMMUNOASSAY Nonreact kena 06/06 Specimen Type: SERUM No comment entered. Ordering Provider: EMELIA FLYNN Report Released Date/Time: Jun 07, 2023 12:59 PM Reporting Lab: [facility] [address] Performing Lab: [facility] [address] [place] [address] [facility] LIPID PANEL (STL) CHOLESTEROL [MASS/VOLUM E] IN SERUM OR PLASMA 146 mg/dL 0 - 200 06/06 Specimen Type: PLASMA Comment: No hemolysis noted. Ordering Provider: EMELIA FLYNN Report Released Date/Time: Jun 07, 2023 12:59 PM Reporting Lab: [facility] [address] [place] [phone] Performing Lab: [facility] [address] [place] [address] [facility] LIPID PANEL (STL) TRIGLYCERID E [MASS/VOLUM E] IN SERUM OR PLASMA 107 mg/dL 0 - 150 06/06 Specimen Type: PLASMA Comment: No hemolysis noted. Ordering Provider: EEMLIA FLYNN Report Released Date/Time: Jun 07, 2023 12:59 PM Reporting Lab: [place] [address] Performing Lab: [place] [id number] [facility] LIPID PANEL (STL) CHOLESTEROL IN LDL [MASS/VOLUM E] IN SERUM OR PLASMA BY CALCULATION 70 mg/dL 06/06 Specimen Type: PLASMA Comment: No hemolysis noted. Ordering Provider: EMELIA FLYNN Report Released Date/Time: Jun 07, 2023 12:59 PM Reporting Lab: [facility] [address] [place], [place] [phone] Performing Lab: [facility] [address] [place], [place] [phone] [facility] LIPID PANEL (STL) CHOLESTEROL IN HDL [MASS/VOLUM E] IN SERUM OR PLASMA 55 mg/dL 40 06/06 Specimen Type: PLASMA Comment: No hemolysis noted. Ordering Provider: EMELIA FLYNN Report Released Date/Time: Jun 07, 2023 12:59 PM Reporting Lab: [facility] [address] [place], [place] [phone] Performing Lab: [facility] [address] [place], [place] [phone] [place] [address] [facility]OC MICRAL/CR EAT PROFILE (STL) ALBUMIN [MASS/VOLUM E] IN URINE 25.6 mg/L 06/06 Specimen Type: URINE No comment entered. Ordering Provider: EMELIA FLYNN Report Released Date/Time: Jun 07, 2023 12:59 PM Reporting Lab: [place] [phone] Performing Lab: [address] [phone] [place] [address] [facility]OC MICRAL/CR EAT PROFILE (L) ALBUMIN/CRE ATININE [MASS RATIO] IN URINE 12 mg/g 0 - 29 06/06 Specimen Type: URINE No comment entered. Ordering Provider: EMELIA FLYNN Report Released Date/Time: Jun 07, 2023 12:59 PM Reporting Lab: [place] [phone] Performing Lab: [address] [phone] [place] [address] [facility] MICRAL/CR EAT PROFILE (L) CREATININE [MASS/VOLUM E] IN URINE 222.3 mg/dL 47 - 110 06/06 H Specimen Type: URINE No comment entered. Ordering Provider: EMELIA FLYNN Report Released Date/Time: Jun 07, 2023 12:59 PM Reporting Lab: [place] [phone] Performing Lab: [address] [address] [facility] TSH (MN-- L) THYROTROPIN [UNITS/VOLU ME] IN SERUM OR PLASMA 0.171 u[IU]/mL 0.47 - 5 06/06 L Specimen Type: SERUM Comment: No hemolysis noted. Ordering Provider: EMELIA FLYNN Report Released Date/Time: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
== END 2024-07-07 17:12 | disposition home or self-care (01) ==
PROVIDERS: Emergency Provider Nurse Practitioner; PCP Family Medicine
DX: J44.1 Chronic obstructive pulmonary disease with (acute) exacerbation (principal); I25.10 Atherosclerotic heart disease of native coronary artery without angina pectoris; I10 Essential (primary) hypertension; E78.00 Pure hypercholesterolemia, unspecified; E03.9 Hypothyroidism, unspecified; F41.9 Anxiety disorder, unspecified; Z95.1 Presence of aortocoronary bypass graft
CPT/HCPCS: 94640; 99213; G0463

== ENCOUNTER 2024-10-12 19:00 | Emergency (ER) | payer MEDICARE, SELFPAY ==
--- OUTSIDE RECORDS SUMMARY | 2024-10-12 19:03 | XMS_ITS | Encounter Summary ---
Author Organization [facility] Address [address] [place] [address] Care Team Providers Care Feedlot Manager Name Role Phone SavanaPeter Rajani JOHNSON Primary Care Provider [phone] Abhijeet Carvajal MD Unavailable [phone] Norris Coulter MD Unavailable [phone] Fredy Foreman MD Unavailable [phone] Marv Roper Unavailable Evelyn Chavez MD Unavailable Reason for Referral * Diagnostic Imaging (Emergency) - Closed Specialty Diagnoses / Procedures Referred By Contac t Referred To Contact Diagnoses Ulnar neuropathy of left upper extremity Procedures ECG 12 lead Abhijeet Carvajal MD Phone: tel: fax: Referral ID Status Reason Start Date Expiration Date Visits Re quested Visits Authorized [id number] Closed 06/20/2016 06/20/2017 1 1 * Diagnostic Imaging (Emergency) - Closed Specialty Diagnoses / Procedures Referred By Contac t Referred To Contact Diagnoses Ulnar neuropathy of left upper extremity Procedures X-ray chest 1 view Abhijeet Carvajal MD Phone: tel: fax: Referral ID Status Reason Start Date Expiration Date Visits Re quested Visits Authorized [id number] Closed 06/20/2016 06/20/2017 1 1 Encounter Details Date Type Department Care Team (Late st Contact Info) Description 06/20/2016 Prep for Case [facility] Neurological Surgery [address] [facility] [place] [address] Abhijeet Carvajal MD [address] [place] [address] Ulnar neuropathy of left upper extremity (Primary [...] of Assessment Author No 04/19/2016 10:07 AM SENIOR JAVASCRIPT DEVELOPER * Does this person have serious difficulty walking or climbing stairs? Answer Date of Assessment Author No 04/19/2016 10:07 AM SENIOR JAVASCRIPT DEVELOPER * Does this person have difficulty dressing or bathing? Answer Date of Assessment Author Yes 04/19/2016 10:07 AM SENIOR JAVASCRIPT DEVELOPER documented as of this encounter H&P Notes [...] 8:48 AM CDT) Urine Color YELLOW YELLOW [facility] Urine Clarity [facility]AR [facility] U Specific [place] 1.013 1.001 - 1.035 [facility] Urine pH 7.0 5.0 - 8.0 pH [facility] U Leukocyte Esterase Negative Negative [facility] [...] None Seen [facility] Urine specimen (specimen) Venous blood specimen / Unknown 06/26/2016 8:48 AM CDT 06/26/2016 9:46 AM CDT Narrative [facility] - 06/26/2016 10:10 AM CDT Specimen Source:->Urine, Clean Catch us Abhijeet Carvajal MD LAB URINE ORDERABLES Final Resu lt [facility] [address] [place] [address] * Basic Metabolic Panel (06/26/2016 8:48 AM CDT) Sodium 141 135 - 146 mmol/L [facility] Potassium, Serum 3.9 3.5 - 5.3 mmol/L [facility] Chloride 106 98 - 110 mmol/L [facility] Carbon Dioxide Level 28 18 - 30 mmol/L [facility] Glucose Level 79 65 - 99 mg/dL [facility] Blood Urea Nitrogen 14 7 - 25 mg/dL [facility] Creatinine 0.9 0.5 - 1.2 mg/dL [facility] Calcium Level 9.7 8.5 - 10.4 mg/dL [facility] BUN/Creatinine Ratio 15.9 6.0 - 25.0 (calc) [facility] Anion Gap-Calculated 7 4 - 16 mmol/L [facility] Osmolality (Calculated) 291.4 273.0 - 304.0 mOsmol [facility] Blood specimen (specimen) Venous blood specimen / Unknown 06/26/2016 8:48 AM CDT 06/26/2016 9:34 AM CDT Narrative [facility] - 06/26/2016 10:10 AM CDT Specimen Type->Blood us Abhijeet Carvajal MD LAB BLOOD ORDERABLES Final Resu lt [facility] [address] [place] [address] * (ABNORMAL) CBC (06/26/2016 8:48 AM CDT) WBC 6.0 3.8 - 10.8 X 10^3/uL [facility] Red Blood Cell Count 4.97 3.80 - 5.10 x 10^6/uL [facility] Hemoglobin 14.0 11.7 - 15.5 g/dL [facility] Hematocrit 41.4 35.0 - 45.0 % [facility] Mean Cell Volume 83.4 80.0 - 100.0 fL [facility] Mean Cell Hemoglobin 28.1 27.0 - 33.0 pg [facility] Mean Cell Hemoglobin Concentration 33.7 32.0 - 36.0 g/dL [facility] RDW 13.1 11.0 - 15.0 % [facility] Platelet Count 228 140 - 400 X 10^3/uL [facility] Mean Platelet Volume 6.9(L) 7.5 - 11.5 fL [facility] Neutrophils 52.4 % [facility] Lymphocytes 32.4 % [facility] Monocytes. 10.1 % [facility] Eosinophils 4.4 % [facility] Basophils 0.7 % [facility] Absolute Neutrophils 3.100 1.500 - 7.800 X 10^3/uL [facility] Absolute Lymphocytes. 1.900 0.850 - 3.900 X 10^3/uL [facility] Absolute Monocytes 0.600 0.200 - 0.950 X 10^3/uL [facility] Absolute Eosinophils 0.300 0.015 - 0.500 X 10^3/uL [facility] Absolute Nucleated RBC 0.010 X 10^3/uL [facility] Reviewed Differential NOT INDICATED [facility] Blood specimen (specimen) Venous blood specimen / Unknown 06/26/2016 8:48 AM CDT 06/26/2016 9:34 AM CDT Narrative [facility] - 06/26/2016 9:47 AM CDT Specimen Source:->Blood, Venous us Abhijeet Carvajal MD LAB BLOOD ORDERABLES Final Resu lt [facility] [address] [place] [address] documented in this encounter Visit Diagnoses Diagnosis Ulnar neuropathy of left upper extremity- Primary documented in this encounter Care Teams Feedlot Manager Relationship Specialty Start Date End Date Peter Sawant DO PCP - General Family Medicine 08/08/15 Abhijeet Carvajal MD Surgeon Neurosurgery 11/03/15 Norris Coulter MD [address] [place] [address] Consulting Physician Pulmonary Disease 11/03/15 Fredy Foreman MD [address] [place] [address] Bulb Tester Cardiovascular Disease 11/03/15 Marv Roper PA [address] [place] [address] Physician Inspector Finishing Neurosurgery 11/03/15 Evelyn Chavez MD [address] [place] [address] Consulting Physician Rheumatology 05/03/20 documented as of this encounter
--- OUTSIDE RECORDS SUMMARY | 2024-10-12 19:03 | XMS_ITS | Clinical Summary ---
Author Organization [facility] Address [address] [address] Phone Care Team Providers Care Rotary Drill Operator Name Role Phone Unavailable Primary Care Provider [...] 11:30 AM CDT Height 162.6 cm (5' 4) 07/05/2020 11:30 AM CDT Body Mass Index 27.12 07/05/2020 11:30 AM CDT Plan of Treatment Not on file
--- OUTSIDE RECORDS SUMMARY | 2024-10-12 19:03 | XMS_ITS | Encounter Summary ---
Author Organization [facility] Address [address] [place] [address] Care Team Providers Care Tire Mechanic Name Role Phone Peter Sawant DO Primary Care Provider [phone] Abhijeet Carvajal MD Unavailable [phone] Norris Coulter MD Unavailable [phone] Fredy Foreman MD Unavailable [phone] Mavr Roper Unavailable Evelyn Chavez MD Unavailable Encounter Details Date Type Department Care Team (Late st Contact Info) Description 02/23/2016 Scanned Document [employer] [facility] Spine and Neurological Surgery [address] [place], [place] [id number] Abhijeet Carvajal MD [address] [place], [place] [id number] Social History Tobacco Use Types Packs/Day Years [...] on filedocumented in this encounter Care Teams Tire Mechanic Relationship Specialty Start Date End Date Peter SawantDO PCP - General Family Medicine 08/08/15 Abhijeet Carvajal MD Surgeon Neurosurgery 11/03/15 Norris Coulter MD [address] [place] [address] Consulting Physician Pulmonary Disease 11/03/15 Fredy Foreman MD [address] [place] [address] Executive Vice President And Chief Financial Officer Cardiovascular Disease 11/03/15 Marv Roper PA [address] [place] [address] Physician Wood Fuel Pelletizer Neurosurgery 11/03/15 Evelyn Chavez MD [address] [place] [address] Consulting Physician Rheumatology 05/03/20 documented as of this encounter
--- OUTSIDE RECORDS SUMMARY | 2024-10-12 19:03 | XMS_ITS | Encounter Summary ---
Author Organization [facility] Address [address] [place] [address] Care Team Providers Care Marketing Coordinator Name Role Phone Peter Sawant DO Primary Care Provider [phone] Abhijeet Carvajal MD Unavailable [phone] Norris Coulter MD Unavailable [phone] Fredy Foreman MD Unavailable [phone] Marv Roper Unavailable Evelyn Chavez MD Unavailable Encounter Details Date Type Department Care Team (Late st Contact Info) Description 07/13/2015 Scanned Document [employer] [address] [place] [address] Physician, Scan Social History Tobacco Use Types [...] on filedocumented in this encounter Care Teams Marketing Coordinator Relationship Specialty Start Date End Date Peter Sawant DO PCP - General Family Medicine 08/08/15 Abhijeet Carvajal MD Surgeon Neurosurgery 11/03/15 Norris Coulter MD [address] [place] [address] Consulting Physician Pulmonary Disease 11/03/15 Fredy Foreman MD [address] [place] [address] Washing Machine Operator Cardiovascular Disease 11/03/15 Marv Roper PA [address] [place] [address] Physician Chemical Sprayer Neurosurgery 11/03/15 Evelyn Chavez MD [address] [place] [address] Consulting Physician Rheumatology 05/03/20 documented as of this encounter
--- OUTSIDE RECORDS SUMMARY | 2024-10-12 19:03 | XMS_ITS | Encounter Summary ---
Author Organization [facility] Address [address] [place] [address] Care Team Providers Care Order Taker Name Role Phone Peter Sawant DO Primary Care Provider [phone] Abhijeet Carvajal MD Unavailable [phone] Norris Coulter MD Unavailable [phone] Fredy Foreman MD Unavailable [phone] Marv Roper Unavailable Evelyn Chavez MD Unavailable Encounter Details Date Type Department Care Team (Late st Contact Info) Description 03/15/2016 Scanned Document [facility] Spine and Neurological Surgery [address] [place], [place] [id number] Abhijeet Carvajal MD [address] [place], [place] [id number] Social History Tobacco Use Types Packs/Day Years [...] on filedocumented in this encounter Care Teams Order Taker Relationship Specialty Start Date End Date Peter SawantDO PCP - General Family Medicine 08/08/15 Abhijeet Carvajal MD Surgeon Neurosurgery 11/03/15 Norris Coulter MD [address] [place] [address] Consulting Physician Pulmonary Disease 11/03/15 Fredy Froeman MD [address] [place] [address] Irrigator Sprinkling System Cardiovascular Disease 11/03/15 Marv Roper PA [address] [place] [address] Physician Personal Fitness Trainer Neurosurgery 11/03/15 Evelyn Chavez MD [address] [place] [address] Consulting Physician Rheumatology 05/03/20 documented as of this encounter
--- OUTSIDE RECORDS SUMMARY | 2024-10-12 19:03 | XMS_ITS | Encounter Summary ---
Author Organization [facility] Address [address] [place] [address] Care Team Providers Care Certified Surgical Tech/First Assistant Name Role Phone SavanaPeter eckert Primary Care Provider [phone] Abhijeet Carvajal MD Unavailable [phone] Norris Coulter MD Unavailable [phone] Fredy Foreman MD Unavailable [phone] Marv Roper Unavailable Evelyn Chavez MD [...] Expiration Date Visits Re quested Visits Authorized [id number] Closed 04/12/2016 04/12/2017 1 1 PLANT SUPERVISOR Encounter Details Date Type Department Care Team (Latest Contact Info) Description 04/12/2016 Prep for Case Amazing Photo Letters [facility] Spine and Neurological Surgery [address] [place] [address] Abhijeet Carvajal MD [address] [address] [place] [address] Bilateral carpal tunnel syndrome (Primary [...] belief they are true, correct and complete. PLANT SUPERVISOR documented in this encounter Plan of Treatment Not on file documented as of this encounter Results * (ABNORMAL) Urinalysis, Complete W/Reflex To Culture (04/19/2016 10:30 AM PULP PLANT SUPERVISOR) Urine Color YELLOW YELLOW [facility] Urine Clarity [facility] U Specific [place] 1.013 1.001 - 1.035 [facility] Urine pH 6.5 5.0 - 8.0 pH [facility] U Leukocyte Esterase Negative Negative [facility] U Nitrite Negative NEGATIVE [facility] U Glucose Negative Negative mg/dL [facility] U Protein Negative Negative [facility] U Ketone Negative Negative [facility] U Bilirubin Negative Negative [facility] Comment:Any Positive Urine B ilirubin must be confirmed by an Ictotest and is automatically reflexed. See Ictotest results for confirmation. U Blood Negative Negative [facility] U RBC/hpf None Seen None Seen [facility] U WBC/hpf None Seen None Seen [facility] U Bacteria Few(A) None Seen [facility] U Epithelial Cells 0-5 /hpf None Seen [facility] Urine specimen (specimen) 04/19/2016 10:30 AM PULP PLANT SUPERVISOR 04/19/2016 11:29 AM PULP PLANT SUPERVISOR Narrative [facility] - 04/19/2016 12:22 PM PULP PLANT SUPERVISOR Specimen Source:->Urine, Clean Catch us Abhijeet Carvajal MD LAB URINE ORDERABLES Final Resu lt [facility] [address] [place] [address] * (ABNORMAL) Basic Metabolic Panel (04/19/2016 10:25 AM PULP PLANT SUPERVISOR) Sodium 146 135 - 146 mmol/L [facility] Potassium, Serum 4.2 3.5 - 5.3 mmol/L [facility] Chloride 108 98 - 110 mmol/L [facility] Carbon Dioxide Level 32(H) 18 - 30 mmol/L [facility] Glucose Level 85 65 - 99 mg/dL [facility] Blood Urea Nitrogen 14 7 - 25 mg/dL [facility] Creatinine 0.8 0.5 - 1.2 mg/dL [facility] Calcium Level 9.8 8.5 - 10.4 mg/dL [facility] BUN/Creatinine Ratio 17.9 6.0 - 25.0 (calc) [facility] Anion Gap-Calculated 6 4 - 16 mmol/L [facility] Osmolality (Calculated) 301.7 273.0 - 304.0 mOsmol [facility] Blood specimen (specimen) Venous blood specimen / Unknown 04/19/2016 10:25 AM PULP PLANT SUPERVISOR 04/19/2016 11:12 AM PULP PLANT SUPERVISOR Narrative [facility] - 04/19/2016 11:43 AM PULP PLANT SUPERVISOR Specimen Type->Blood us Abhijeet Carvajal MD LAB BLOOD ORDERABLES Final Resu lt [facility] [address] [place] [address] * (ABNORMAL) CBC (04/19/2016 10:25 AM PULP PLANT SUPERVISOR) WBC 6.7 3.8 - 10.8 X 10^3/uL [facility] Red Blood Cell Count 5.22(H) 3.80 - 5.10 x 10^6/uL [facility] Hemoglobin 14.6 11.7 - 15.5 g/dL [facility] Hematocrit 43.5 35.0 - 45.0 % [facility] Mean Cell Volume 83.3 80.0 - 100.0 fL [facility] Mean Cell Hemoglobin 28.0 27.0 - 33.0 pg [facility] Mean Cell Hemoglobin Concentration 33.6 32.0 - 36.0 g/dL [facility] RDW 13.0 11.0 - 15.0 % [facility] Platelet Count 223 140 - 400 X 10^3/uL [facility] Mean Platelet Volume 7.0(L) 7.5 - 11.5 fL [facility] Neutrophils 49.8 % [facility] Lymphocytes 35.1 % [facility] Monocytes. 9.1 % [facility] Eosinophils 5.0 % [facility] Basophils 1.0 % [facility] Absolute Neutrophils 3.400 1.500 - 7.800 X 10^3/uL [facility] Absolute Lymphocytes. 2.400 0.850 - 3.900 X 10^3/uL [facility] Absolute Monocytes 0.600 0.200 - 0.950 X 10^3/uL [facility] Absolute Eosinophils 0.300 0.015 - 0.500 X 10^3/uL [facility] Absolute Basophils 0.100 0.000 - 0.200 X 10^3/uL [facility] Absolute Nucleated RBC 0.000 X 10^3/uL [facility] Reviewed Differential NOT INDICATED [facility] Blood specimen (specimen) Venous blood specimen / Unknown 04/19/2016 10:25 AM PULP PLANT SUPERVISOR 04/19/2016 11:12 AM PULP PLANT SUPERVISOR Narrative [facility] - 04/19/2016 11:23 AM PULP PLANT SUPERVISOR Specimen Source:->Blood, Venous us Abhijeet Carvajal MD LAB BLOOD ORDERABLES Final Resu lt [facility] [address] [place] [address] * ECG 12 lead (04/19/2016 9:53 AM PULP PLANT SUPERVISOR) Patient Height (In) in TRACEMASTER Heart Rate ECG 56 bpm TRACEMASTER RR Interval ECG 1,071 ms TRACEMASTER Atrial Rate ECG 58 ms TRACEMASTER NE Interval 180 ms TRACEMASTER P Duration 192 ms TRACEMASTER P Horizontal [place] ECG 3 deg TRACEMASTER P Front [place] ECG 77 deg TRACEMASTER Q Onset ECG 512 ms TRACEMASTER QRSD Interval 82 ms TRACEMASTER QT Interval 456 ms TRACEMASTER QTcB ECG 441 ms TRACEMASTER QTcF ECG 446 ms TRACEMASTER QRS Horizontal [place] ECG -16 deg TRACEMASTER QRS [place] ECG 61 deg TRACEMASTER I-40 Horizontal [place] ECG 11 deg TRACEMASTER I-40 Front [place] ECG 61 deg TRACEMASTER T-40 Horizontal [place] ECG -63 deg TRACEMASTER T-40 Front [place] ECG 82 deg TRACEMASTER T Horizontal [place] ECG 37 deg TRACEMASTER T Wave [place] -[address] Horizontal [place] ECG deg TRACEMASTER ST Front [place] ECG -49 deg TRACEMASTER 04/19/2016 9:53 AM PULP PLANT SUPERVISOR Impressions TRACEMASTER - 04/24/2016 6:01 PM PULP PLANT SUPERVISOR - NORMAL ECG - SINUS RHYTHM Narrative Procedure Note Saleem Ramires MD - 04/24/2016 IMPRESSION: - NORMAL ECG - SINUS RHYTHM us Abhijeet Carvajal MD ECG ORDERABLES Final Result MELINDA documented in this encounter Visit Diagnoses Diagnosis Bilateral carpal tunnel syndrome- Primary Carpal tunnel syndrome Ulnar neuropathy of left upper extremity Other osteoarthritis of spine, cervical region documented in this encounter Care Teams Certified Surgical Tech/First Assistant Relationship Specialty Start Date End Date Peter Sawant DO PCP - General Family Medicine 08/08/15 Abhijeet Carvajal MD Surgeon Neurosurgery 11/03/15 Norris Coulter MD [address] [place] [id number] Consulting Physician Pulmonary Disease 11/03/15 Fredy Foreman MD [address] [place] [phone] Control Tower Radio Operator Cardiovascular Disease 11/03/15 Marv Roper PA [address] [place] [phone] Physician [employer] Neurosurgery 11/03/15 Evelyn Chavez MD [address] [place] [phone] Consulting Physician Rheumatology 05/03/20 documented as of this encounter
--- OUTSIDE RECORDS SUMMARY | 2024-10-12 19:03 | XMS_ITS | Clinical Summary ---
Author Organization [facility] Address [address] [place] [address] Care Team Providers Care Director Of Extension Work Name Role Phone SavanaPeter eckert Rajani JOHNSON Primary Care Provider [phone] Abhijeet Carvajal MD Unavailable [phone] Norris Coulter MD Unavailable [phone] Fredy Foreman MD Unavailable [phone] Marv Roper Unavailable Evelyn Chavez MD [...] Eduarda Salcedo, 56 y.o., female EMPLOYER: [employer] CLAIM NUMBER: # [id number] DATE OF INJURY: 08/20/2013 Problem Noted Date Diagnosed Date Carpal tunnel syndrome 11/14/2015 Neck pain 11/14/2015 Degeneration of intervertebral disc of cervical region 11/14/2015 Ulnar neuropathy 11/14/2015 Spinal stenosis of cervical region 11/14/2015 Hand paresthesia 11/14/2015 Tingling of skin 11/14/2015 Osteoarthritis of cervical spine 11/04/2015 Former 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 use of non -steroidal anti-inflammatories (NSAID) [...] Date Smoking Tobacco: Heavy Smoker Cigarettes 0.5 54.5 Started: 1970 Smokeless Tobacco: Never Alcohol Use [...] 11:52 AM CDT Height 162.6 cm (5' 4) 07/19/2020 11:52 AM CDT Body Mass Index 27.46 07/19/2020 11:52 AM CDT Plan of Treatment Health Maintenance Due Date Last Done Comments Mammogram 1960 Pneumococcal Vaccine: 65+ Years (2 of 2 - PCV) 013 06/07/2011 Influenza Vaccine (#1) 2024 Colonoscopy 10/20/2030 10/20/2020 Insurance [employer]-AET CHOICE POS [employer]-A[employer] CHOICE POS Care Teams Director Of Extension Work Relationship Specialty Start Date End Date Savana Peter GerardDO PCP - General Family Medicine 08/08/15 Abhijeet Carvajal MD Surgeon Neurosurgery 11/03/15 Norris Coulter MD [address] [place] [address] Consulting Physician Pulmonary Disease 11/03/15 Fredy Foreman MD [address] [place] [address] Yarn Packer Cardiovascular Disease 11/03/15 Marv Roper PA [address] [place] [address] Physician Hose Turner Neurosurgery 11/03/15 Evelyn Chavez MD [address] [place] [address] Consulting Physician Rheumatology 05/03/20
--- OUTSIDE RECORDS SUMMARY | 2024-10-12 19:03 | XMS_ITS | Encounter Summary ---
Author Organization [facility] Address [address] [place] [address] Care Team Providers Care Manager Of Security Name Role Phone Jese Candelaria MD Unavailable Ever Marx MD Primary Care Provider [phone] Encounter Details Date Type Department Care Team (Late st Contact Info) Description 10/12/2024 Telephone [facility] [address] [place] [id number] Sarita Mondragon Social History Tobacco Use Types Packs/Day Years Used Date Smoking Tobacco: Some Days Cigarettes 0.3 53.5 Started: 1973 Smokeless Tobacco: Never [facility] Utilities Answer Date Recorded In the past 12 months has e electric, gas, oil, or water company [...] often do you attend chur ch or pentecostalism services? Never 04/12/2023 Do you belong to any clubs o r organizations such as moravian groups, unions, fraternal or athletic groups, or school groups? No 04/12/2023 How often do you attend meet ings of the clubs or organizations you belong to? Never 04/12/2023 Marital Status Not on file 04/12/2023 AUDIT-C Answer Date Recorded Q1: How often do you have a drink containing alcohol? Never 09/17/2024 Q2: How many drinks containi ng alcohol do you have on a typical day when you are drinking? Patient does not drink Q3: How often do you have si x or more drinks on one occasion? Never 09/17/2024 Overall Financial Resource Strain (CARDIA) Answe r Date Recorded How hard is it for you to pa y for the very basics like food, housing, medical care, and heating? Not hard at all 04/12/2023 PHQ-2 Answer Date Recorded PHQ-2 Total Score (If total score is 3 or more points, staff should administer the PHQ-9) 0 09/17/2024 Hunger Vital Sign Answer Date Recorded Within [...] place to sleep or slept in a skilled nursing (including now)? No 04/12/2023 Personal Safety Answer [...] on file Legal Sex Female 11:22 AM ROD DRAWER Gender Identity Not on file Sexual Orientation Not on file documented as of this encounter Miscellaneous Notes * Telephone Encounter - Sarita Mondragon - 10/12/2024 12:[address] APPOINTMENT REMINDER WITH PATIENT. documented in this encounter Plan of Treatment Not on file documented as of this encounter Visit Diagnoses Not on filedocumented in this encounter Care Teams Manager Of Security Relationship Specialty Start Date End Date Ever Marx MD [address] [facility] [place] [address] PCP - General Family Medicine 05/15/23 Jese Candelaria MD [address] [facility] [place] [address] Consulting Physician Pulmonary Disease 04/15/23 documented as of this encounter
--- OUTSIDE RECORDS SUMMARY | 2024-10-12 19:03 | XMS_ITS | Clinical Summary ---
Author Organization [facility] Address [address] [place] [address] Care Team Providers Care Kiln Stoker Name Role Phone Jese Candelaria MD Unavailable Demar Marx MD Primary Care Provider [phone] Allergies Active Allergy Reactions Criticality Noted Date [...] each nostril 2 (two) times a day 09/26/19 16 Active L. acidophilus-di g enz cmb 5 5-250 mg capsule Take 1 capsule by mouth director surgical before breakfast Active acetaminophen (TYLENOL) 500 mg tablet Take 1 tablet (500 mg total) by mouth every 6 (six) hours as needed for pain Active montelukast (SINGULAIR) 10 mg tablet Take 1 tablet (10 mg total) by mouth nightly 30 tablet 04/15/19 24 Active traZODone (DESYREL) 100 mg tablet Take 1 tablet (100 mg total) by mouth nightly 30 tablet 04/15/19 24 Active ipratropium-al buteroL (DUO-NEB) 0.5-2.5 mg/3 mL nebulizer solution Take 3 mL by nebulization every 6 (six) hours as needed for wheezing or shortness of breath 180 mL 04/15/[address] (CYMBALTA) 60 mg capsule Take 2 capsules (120 mg total) by mouth daily 60 capsule 04/15/19 24 Active nitroglycerin (NITROSTAT) 0.[address] 1 tablet (0.4 mg total) under the tongue every 5 (five) minutes as needed for chest pain 30 tablet 04/15/19 24 Active cloNIDine (CATAPRES) 0.1 mg tablet Take 1 tablet (0.1 mg total) by mouth 3 (three) times a day 09/26/19 16 Active hydroCHLOROthi azide (HYDRODIURIL) 12.5 mg tablet Take 1 tablet (12.5 mg total) by mouth daily 02/22/20 15 Active methocarbamoL (ROBAXIN) 500 mg tablet Take 1 tablet (500 mg total) by mouth 4 (four) times a day 08/19/19 16 Active albuterol HFA (PROVENTIL HFA,VENTOLIN HFA,PROAIR HFA) 90 mcg/actuation inhaler Inhale 2 puffs every 6 (six) hours as needed for shortness of breath 1 each 02/04/20 24 Active glycopyrrolate -formoteroL (Bevespi Aerosphere) 9-4.8 mcg inhaler Inhale 2 puffs 2 (two) times a day 1 each 02/06/20 24 Active buPROPion XL (WELLBUTRIN XL) 450 mg 24 hr tablet Take 1 tablet (450 mg total) by mouth every morning 90 tablet 1 04/21/19 25 025 Active carvediloL (COREG) 25 mg tablet Take 1 tablet (25 mg total) by mouth 2 (two) times a day with meals 60 tablet 11 07/29/19 026 Active levothyroxine (SYNTHROID) 100 mcg tablet Take 1 tablet by mouth daily in the morning 30 minutes before other medications or supplements, 6 days per week 90 tablet 1 08/14/19 25 Active isosorbide mononitrate ER (IMDUR) 30 mg 24 hr tablet TAKE 1 TABLET BY MOUTH EVERY DAY 90 tablet 3 09/11/19 25 Active losartan (COZAAR) 100 mg tablet TAKE 1 TABLET BY MOUTH EVERY DAY 90 tablet 3 09/11/19 25 Active rosuvastatin (CRESTOR) 10 mg tablet TAKE 1 TABLET BY MOUTH EVERY DAY AT NIGHT 90 tablet 3 09/11/19 25 Active cetirizine (ZyrTEC) 10 mg tablet Take 1 tablet (10 mg total) by mouth daily as needed for allergies 90 tablet 09/18/19 25 025 Active clopidogreL (PLAVIX) 75 mg tablet TAKE 1 TABLET BY MOUTH EVERY DAY 90 tablet 3 09/25/19 25 Active nisoldipine ER (SULAR) 17 mg 24 hr tablet TAKE 1 TABLET (17 MG TOTAL) BY MOUTH DAILY 90 tablet 3 10/06/19 25 026 Active nisoldipine ER (SULAR) 17 mg 24 hr tablet Take 1 tablet (17 mg total) by mouth daily 30 tablet 11 04/15/19 24 025 Discontinued clopidogreL (PLAVIX) 75 mg tablet Take 1 tablet (75 mg total) by mouth daily 30 tablet 04/15/19 24 025 Discontinued amoxicillin (AMOXIL) 500 mg tablet/capsule Take 1 tablet/capsule (500 mg total) by mouth 2 (two) times a day for 7 days 14 tablet/caps ule 09/18/19 25 025 Active Problems Problem Noted Date Diagnosed Date Physical exam, annual 04/21/2024 Assessment & Plan (04/21/2024 1:08 PM SLASHER MACHINE OPERATOR): Discussed lifestyle modifications, diet and exercise. Routine blood work ordered/reviewed today. Yearly vision and dental examinations. Current smoker 05/15/2023 Assessment & Plan (04/21/2024 1:03 PM SLASHER MACHINE OPERATOR): Recommend quitting smoking Wants to quit States that she will do it cold turkey Recommend increasing wellbutrin to 450 mg xl Generalized anxiety disorder 05/15/2023 Essential hypertension 05/15/2023 Assessment & Plan (09/17/2024 3:21 PM CDT): BP Readings from Last 3 Encounters: 09/17/24 138/80 06/12/24 139/70 06/02/24 140/58 Vitals BP 138/80 (BP Location: Left arm, Patient Position: Sitting) Pulse 71 Resp 16 Ht 162.6 cm (5' 4.02) Wt 75.3 kg (166 lb) SpO2 97% BMI 28.48 kg/m Lab Results Component Value Date POTASSIUM 3.3 04/21/2024 At goal at this time Continue current regimen Coreg 25 mg bid, hctz 12.5 mg every day, imdur 30 mg every day, losartan 100 mg every day, nisoldipine 17 mg every day Assessment & Plan (04/21/2024 1:01 PM SLASHER MACHINE OPERATOR): BP Readings from Last 3 Encounters: 04/21/24 136/84 02/04/24 120/52 07/29/23 142/74 Vitals BP 136/84 Pulse 81 Temp 37 C (98.6 F) (Temporal) Resp 20 Ht 162.6 cm (5' 4.02) Wt 73.5 kg (162 lb) SpO2 95% BMI 27.79 kg/m Lab Results Component Value Date POTASSIUM 3.6 04/15/2023 At goal at this time Continue current regimen Coreg 25 mg bid, hctz 12.5 mg every day, imdur 30 mg every day, losartan 100 mg every day, nisoldipine 17 mg every day Assessment & Plan (05/15/2023 11:16 AM SLASHER MACHINE OPERATOR): BP Readings from Last 3 Encounters: 05/15/23 112/74 04/15/23 157/74 Vitals BP 112/74 (BP Location: Left arm, Patient Position: Sitting) Pulse 78 Resp 16 Ht 162.6 cm (5' 4.02) Wt 79.7 kg (175 lb 12.8 oz) SpO2 97% BMI 30.16 kg/m Lab Results Component Value Date POTASSIUM 3.6 04/15/2023 At goal at this time Continue current regimen Coreg 25 mg bid, hctz 12.5 mg every day, imdur 30 mg every day, Pulmonary hypertension 04/15/2023 Assessment & Plan (04/21/2024 1:00 PM SLASHER MACHINE OPERATOR): Needs follow up with pulm Mitral valve regurgitation 04/15/2023 Thyroid disease 04/12/2023 Assessment & Plan (05/15/2023 11:17 AM SLASHER MACHINE OPERATOR): No results found for: TSH No tsh on file Repeat labs now Cont lvt 150 mcg every day for now CAD (coronary artery disease) 04/12/2023 Assessment & Plan (05/15/2023 11:16 AM SLASHER MACHINE OPERATOR): Cont coreg, crestor 10 mg qhs Rfepeat lipid panel Referral to cardio S/P CABG (coronary artery bypass graft) 04/12/19 Assessment & Plan (04/21/2024 1:00 PM SLASHER MACHINE OPERATOR): Continue cardio follow up Assessment & Plan (05/15/2023 10:51 AM SLASHER MACHINE OPERATOR): Will refer to cardiology for eval Mixed hyperlipidemia 04/12/2023 Assessment & Plan (09/17/2024 3:22 PM CDT): Lab Results Component Value Date CHOL 137 04/21/2024 Lab Results Component Value Date HDL 61 04/21/2024 Lab Results Component Value Date LDLCALC 52 04/21/2024 Lab Results Component Value Date TRIG 140 04/21/2024 No results found for: POCCHDLR No results found for: POCNONHDL No results found for: POCCHLPL Lipids now Assessment & Plan (04/21/2024 1:00 PM SLASHER MACHINE OPERATOR): No results found for: CHOL, POCCHOL No results found for: HDL, POCHDL No results found for: LDLCALC, CLDL, HIRISKLDL, LDL, LDLC, LDLDIRECT, LDLMED, LDLP, POCLDL, SCRLDL, SMALLLDLP, TOTLDLC No results found for: TRIG, POCTRIG No results found for: POCCHDLR No results found for: POCNONHDL No results found for: POCCHLPL Lipids now Assessment & Plan (05/15/2023 10:51 AM SLASHER MACHINE OPERATOR): No results found for: CHOL, POCCHOL No results found for: HDL, POCHDL No results found for: LDLCALC, CLDL, HIRISKLDL, LDL, LDLC, LDLDIRECT, LDLMED, LDLP, POCLDL, SCRLDL, SMALLLDLP, TOTLDLC No results found for: TRIG, POCTRIG No results found for: POCCHDLR No results found for: POCNONHDL No results found for: POCCHLPL Anxiety 04/12/2023 COPD with emphysema 04/11/2023 Assessment & Plan (05/15/2023 10:52 AM SLASHER MACHINE OPERATOR): Will refer to pulm for eval Continue albuterol prn, duo-neb prn, singulair, spiriva 2.5 mcg every day Resolved Problems Problem Noted Date Diagnosed Date Resolved Date Acute kidney injury 04/13/2023 05/15/19 Acute respiratory failure with hypoxia 04/12/2023 05/15/2023 Encounters Date Type Department Care Team Description 10/12/[address] [address] Sarita Mondragon 09/17/2024 3:30 PM CDT Office Visit [facility] [place] [address] [facility] [address] [place] [phone] Demar Marx MD Acute maxillary sinusitis, recurrence not specified (Primary Dx); Essential hypertension; Post-nasal drainage; Acute cough; Mixed hyperlipidemia; Seasonal allergic rhinitis due to pollen 09/15/2024 Telephone [facility] [address] [facility] [address] [place] [address] Demar Marx MD Forms Request (Medical Clearance) 09/10/[address] [address] Agusto Gomez 08/07/2024 Results Follow-Up [place] Provider Enrollment Specialist at [address] [place] [address] Letitia Joel MA SHANEL 08/07/[address] [facility] Provider Enrollment Specialist at [address] [place] [address] Chary Devries MD Atherosclerosis of [place] arteries of extremities with intermittent claudication, bilateral legs (Primary Dx) 08/04/2024 10:56 AM CDT - 08/04/2024 11:59 PM CDT Hospital Encounter [facility] [address] [place] [address] [facility] Atherosclerosis of [place] arteries of extremities with intermittent claudication, bilateral legs Discharge Disposition: Discharge to home or self care from Last 3 Months Immunizations Immunization Administration Dates Next Due Influenza, Unspecified 04/21/2024(Deferr ed: Patient Refused),05/15/2023(Deferred: Allergy) Pneumococcal Conjugate Pcv20 05/15/2023 Pneumococcal Polysaccharide PPV23 06/07/2011 Td, Unspecified 06/06/2010,03/29/2004 Tdap 01/05/2019 Surgical History Surgery Date Site/Laterality Comments [place] RPR THORACOABDOMINAL AORT IC ANEURYS W/WO BYPASS [...] 0.3 53.5 Started: 1973 Smokeless Tobacco: Never Tobacco Cessation:Ready to Q uit: Not Asked; Counseling Given: Yes [facility] Utilities Answer Date Recorded In the past 12 months has th e [employer], gas, oil, or water company threatened to [...] any clubs o r organizations such as druze groups, unions, fraternal or athletic groups, or [...] place to sleep or slept in a senior care (including now)? No 04/12/2023 Personal Safety Answer [...] on file Legal Sex Female 11:22 AM SLASHER MACHINE OPERATOR Gender Identity Not on file Sexual Orientation Not on file Obstetrics History Para Term AB IAB SAB Ectopic Multiple Livin g Live Births 4 2 2 Date Outcome GA Total Labor Labor/2nd/3rd Weight Sex Type Anes PTL Dea A1 A5 Name Clin Term Term Last Filed Vital Signs Vital Sign Reading Time Taken Comments Blood Pressure 138/80 09/17/2024 3:10 PM CDT Pulse 71 09/17/2024 3:10 PM CDT Temperature 37 C (98.6 F) 04/21/2024 12:47 PM SLASHER MACHINE OPERATOR Respiratory Rate 16 09/17/2024 3:10 PM CDT Oxygen Saturation 97% 09/17/2024 3:10 PM CDT Inhaled Oxygen Concentration - - Weight 75.3 kg (166 lb) 09/17/2024 3:10 PM CDT Height 162.6 cm (5' 4.02) 09/17/2024 3:10 PM CD T Body Mass Index 28.48 09/17/2024 3:10 PM CDT Plan of Treatment Health Maintenance Due Date Last Done Comments Zoster Vaccine (1 of 2) 01/26/2008 Covid-19 Vaccine (2023- 5 season) 2023 07/07/2020, 06/09/2020 Breast Cancer Screening-Mammogram 10/20/2024 024 Influenza Vaccine (#1) 2024 Well Visit 65+ 04/21/2025 04/21/2024 Lung Cancer Screening 06/13/2025 06/12/2024, 024 Depression Screening 09/17/2025 09/17/2024, 04/21/2024, 05/15/2023 Fall Risk Assessment 09/17/2025 09/17/2024, 04/21/2024, 05/15/2023, Additional history exists Osteoporosis Screening-Bone Density Scan 10/20/2025 10/21/2023 DTaP/Tdap/Td Vaccine (2 - Td or Tdap) 01/05/2029 01/05/2019, 06/06/2010, 03/29/2004 Colon Cancer Screening-Colonoscopy 10/20/20302020 Pneumococcal vaccine 65+ Completed 05/15/2023, 04/2011 Hepatitis B Screening Completed 04/21/2024 Hepatitis C Screening Completed 04/21/2024 Procedures Procedure Name Priority Date/Time Associated Diagnosis Comments US SHANEL Schedule Routine, Read Routine (OP Routine) 08/04/2024 11:27 AM CDT Atherosclerosis of [place] arteries of extremities with intermittent claudication, bilateral legs CT CHEST WO CONTRAST F/U LUNG SCREEN PROTOCOL Schedule Routine, Read Routine (OP Routine) 06/12/2024 1:14 PM SLASHER MACHINE OPERATOR Abnormal CT lung screening Lung nodule HEPATITIS C ANTIBODY Routine 04/21/2024 1:35 PM SLASHER MACHINE OPERATOR Need for hepatitis B screening test DEXA AXIAL SKELETON BONE DENSITY 1 OR MORE SITES Schedule Routine, Read Routine (OP Routine) 10/21/2023 3:16 PM CDT Postmenopausal SCREENING MAMMOGRAM BILATERAL W LISETH Schedule Routine, Read Routine (OP Routine) 10/21/2023 3:05 PM CDT Encounter for screening mammogram for malignant neoplasm of breast from Last 3 Months or Most Recently Relevant to Health Maintenance Results * US SHANEL (08/04/2024 11:27 AM CDT) Anatomical Region Laterality Modality Vascular N/A Ultrasound 08/04/2024 11:0 9 AM CDT Narrative 08/04/2024 11:45 AM CDT [address] , [place] [address] Ankle Brachial Index Report Patient Name: EDUARDA SALCEDO : 1960 (64y 6m) Gender: F Study Date: 08/04/2024 11:09:00 AM Ice Handler: Order Provider: CHARY DEVRIES Quality: Adequate Ref Provider: CHARY DEVRIES PROCEDURES: Arterial Report: A bilateral extremities ankle/brachial index was performed. INDICATIONS: I70.213 Atherosclerosis of [place] arteries of extremities with intermittent claudication, bilateral legs. CONCLUSIONS: 1. Moderate arterial insufficiency at rest in the right lower extremity with ankle-brachial index was 0.69. biphasic waveform at the ankle. 2. No arterial insufficiency at rest in the left lower extremity with ankle- brachial index of 0.91. Biphasic to triphasic waveform at the ankle. FINDINGS: Electronically Signed By: Eulogio Durant MD 08/04/2024 11:44:01 AM CDT Procedure Note Eulogio Durant MD - 08/04/2024 [place] [address] Ankle Brachial Index Report Patient Name: EDUARDA SALCEDO : 1960 (64y 6m) Gender: F Study Date: 08/04/2024 11:09:00 AM Ice Handler: Order Provider: CHARY DEVRIES Quality: Adequate Ref Provider: CHARY DEVRIES PROCEDURES: Arterial Report: A bilateral extremities ankle/brachial index wasperformed. INDICATIONS: I70.213 Atherosclerosis of [place] arteries of extremities withintermittent claudication, bilateral legs. CONCLUSIONS: 1. Moderate arterial insufficiency at rest in the right lower extremitywith ankle-brachial index was 0.69. biphasic waveform at the ankle. 2. No arterial insufficiency at rest in the left lower extremity withankle- brachial index of 0.91. Biphasic to triphasic waveform at the ankle. FINDINGS: Electronically Signed By: Eulogio Durant MD 08/04/2024 11:44:01 AM CDT us Chary Devries MD IM US PROCEDURES Final Re sult * CT Chest WO Contrast F/U Lung Screen Protocol (06/12/2024 1:14 PM SLASHER MACHINE OPERATOR) Anatomical Region Laterality Modality Chest N/A Computed [...] Michi Chauhan D.O. PS: PS Report ID: [id number] Reading Location: [id number] Procedure Note Michi Chauhan, - 06/16/2024 EXAM DESCRIPTION: CT CHEST WO [...] 0.7 cm in the subcarinal region (axial [id number]). There is a small hiatal hernia. The [...] Michi Chauhan D.O. PS: PS Report ID: [id number] Reading Location: [place] [address] us Demar Marx MD IMG CT PROCEDURES Final Result * Hepatitis C antibody Blood (04/21/2024 1:35 PM SLASHER MACHINE OPERATOR) Hep C Ab Nonreactive Nonreactive Comment: Interpretive [...] last revised on 2019. Testing performed by: [facility], [address] [place] [address]., [id number] Blood 04/21/2024 1:35 PM SLASHER MACHINE OPERATOR 04/21/2024 3:46 PM SLASHER MACHINE OPERATOR us Demar Marx MD LAB MICROBIOLOGY - GENERAL ORDER AGUSTIN Final Result Performing Organization Address City/State/[facility] Co de Phone Number [facility] BUSY) [address] [facility] Department [place] [address] * Dexa Axial Skeleton Bone Density 1 Or 2 Site (10/21/2023 3:16 PM CDT) Anatomical Region Laterality Modality Body N/A Other 10/21/2023 7:47 PM CDT Narrative 10/21/2023 7:48 PM CDT EXAM DESCRIPTION: DEXA AXIAL SKELETON BONE DENSITY 1 OR MORE SITES REASON FOR STUDY: 63 y/o year old F with given history of: osteoporosis screening Screening. Postmenopausal Locomotive Operator/Model: FluGen SL (S/N [id number]) CLINICAL INFORMATION: Current height: 62.5 inches Maximum [...] Dann Ramos M.D. MF: TIAN Report ID: [id number] Reading Location: [id number] Procedure Note Dann Ramos MD - 10/21/2023 EXAM DESCRIPTION: DEXA AXIAL SKELETON BONE DENSITY 1 OR MORE SITES REASON FOR STUDY: 63 y/o year old F with given history of:osteoporosis screening Screening. Postmenopausal Locomotive Operator/Model: NXVISION Discovery SL (S/N [id number]) CLINICAL INFORMATION: Current height: 62.5 inches Maximum [...] Dann Ramos M.D. MF: TIAN Report ID: [id number] Reading Location: [place] [address] Demar Marx MD [facility] DXA PROCEDURES Final Result * SCREENING MAMMOGRAM [...] no suspicious interval change. Demar Marx MD [facility] MAMMO PROCEDURES Final Resul t from Last 3 Months or Most Recently Relevant to Health Maintenance Insurance [employer] MED[employer]ARE GOLD Advance Directives For more information, please contact: [phone] * Full Code (Latest Code Status on File) Date Activated Date Inactivated Comments 04/11/2023 11:21 PM 04/15/2023 9:43 PM Care Teams Kiln Stoker Relationship Specialty Start Date End Date Demar Marx MD [address] [facility] [address] [place] [address] PCP - General Family Medicine 05/15/23 Jese Candelaria MD [address] [facility] [address] [place] [address] Consulting Physician Pulmonary Disease 04/15/23
--- OUTSIDE RECORDS SUMMARY | 2024-10-12 19:03 | XMS_ITS | Encounter Summary ---
Author Organization [facility] Address [address] [place] [address] Care Team Providers Care Animal Sitter Name Role Phone SavanaPeter eckert Primary Care Provider [phone] Abhijeet Carvajal MD Unavailable [phone] Norris Coulter MD Unavailable [phone] Fredy Foreman MD Unavailable [phone] Marv Roper Unavailable Evelyn Chavez MD Unavailable Encounter Details Date Type Department Care Team (Late st Contact Info) Description 11/09/2020 Scanned Document [employer] [facility] Rheumatology [address] [facility], [address] [place], [place] [id number] Evelyn Chavez MD [address] [place], [place] [id number] Social History Tobacco Use Types Packs/Day Years Used Date Smoking Tobacco: Heavy Smoker Cigarettes 0.5 54.5 Started: 1973 Smokeless Tobacco: Never Alcohol Use [...] on filedocumented in this encounter Care Teams Animal Sitter Relationship Specialty Start Date End Date Peter Sawant DO PCP - General Family Medicine 08/08/15 Abhijeet Carvajal MD Surgeon Neurosurgery 11/03/15 Norris Coulter MD [address] [place] [phone] Consulting Physician Pulmonary Disease 11/03/15 Fredy Foreman MD [address] [place] [phone] Programming Development Project Manager Cardiovascular Disease 11/03/15 Marv Roper PA [address] [place] [phone] Physician Loss Prevention Supervisor Neurosurgery 11/03/15 Evelyn Chavez MD [address] [place] [phone] Consulting Physician Rheumatology 05/03/20 documented as of this encounter
--- OUTSIDE RECORDS SUMMARY | 2024-10-12 19:03 | XMS_ITS | Continuity of Care Document ---
Author Name [facility] Organization [facility] Care Team Providers [employer] Sales Executive Name Role Phone [facility] Unavailable Unavailable Problems Combined list of problems from Department of Defense and [facility] facilities. It does not include entries that were removed or entered in error. Problem Status Onset Date Problem Type Date of Resolution Comments Source Allergic Rhinitis (SCT 70136554) Active Condition [facility] Anxiety Active Condition [facility] Anxiety disorder Active Condition [facility] Benign essential hypertension (SNOMED CT 0347383) Active Condition [facility] CAD - Coronary Artery Disease (SCT 73705444) Active Condition Jun 07, 2023 Entered By: RACHEL FLYNN Comment: H/O CABG [facility] CHF - Congestive Heart Failure (SCT 12399382) Active Condition [facility] Chronic obstructive lung disease Active Condition [facility] COPD - Chronic Obstructive Pulmonary Disease (SCT 72661742) Active Condition [facility] Coronary Artery Disease * Active Condition [facility] H/O: hysterectomy Active Condition [facility] History of cholecystectomy Active Condition [facility] History of coronary artery bypass grafting Active Condition Dec 28, 2014 Entered By: Corie DOBBINS Comment: CABG 06/2010 [facility] HTN - Hypertension (SCT 32876773) Active Condition [facility] Hypothyroidism (SCT 23044092) Active Condition [facility] Hypothyroidism (SNOMED CT 88523210) Active Condition [facility] Insomnia Active Condition [facility] Major depressive disorder Active Condition [facility] Major depressive disorder (SNOMED CT 046809112) Active Condition [facility] Nicotine dependence (SNOMED CT 73210206) Active Condition [facility] Obstructive Sleep Apnea of Adult (SCT 4913172775470) Active Condition [facility] Obstructive sleep apnea syndrome Active Condition [facility] Osteopenia Active Condition [facility] Pain in joint involving ankle and foot (ICD-9-CM 719.47) Active Condition [facility] Tobacco User (SCT 334860486) Active Condition [facility] Diagnosis: ICD-10-CM I25.10 Athscl heart disease of lime coronary artery w/o ang pctrs Active Diagnosis [facility] Diagnosis: ICD-10-CM Z71.89 Other specified counseling Active Diagnosis [facility] Diagnosis: ICD-10-CM Z55.9 Problems related to education and literacy, unspecified Active Diagnosis [facility] Diagnosis: ICD-10-CM Z00.00 Encntr for general adult medical exam w/o abnormal findings Active Diagnosis [facility] Medications Combined list of outpatient medications from Department of Defense and [facility] facilities.Medications provided include 1) outpatient medications from the last 15 months, and 2) patient-reported medications. Medication Details Route Status Patient Instructions Prescription Expires Prescription Number Last Dispense Date Ordering Provider Order Date Order Qty Source 0 NON-VA MEDICATION ASSESSMENT DONE [facility] USE NISOLDIP INE ER 17 MG DIRECTED DAILY NOT APPLIC ABLE ACTIVE MEERA GOLDMAN 2016 [facility] ALBUTEROL SO4 0.083% INHL,3ML,UD USE 1 VIAL (3ML) INHALED UD PRN RESPIR ATORY (INHAL ATION) ACTIVE MEERA GOLDMAN 2016 [facility] ALBUTEROL SO4 90MCG/ACTUA T (CFC-F) INHL,ORAL,8 .5GM INHALE 2 PUFFS BY ORAL INHALATI ON FOUR TIMES A DAY RESPIR ATORY (INHAL ATION) ACTIVE JAMISON FLYNN 2024 [facility] ASPIRIN 81MG TAB,EC TAKE ONE TABLET BY MOUTH DAILY ORAL ACTIVE MEERA GOLDMAN 2014 [facility] AZELASTINE HCL 137MCG/SPRA Y INHL,NASAL, 30ML SPRAY 1 SPRAY IN NOSTRIL( S) TWICE A DAY NASAL ACTIVE JAMISON FLYNN 2024 [facility] BUPROPION HCL 300MG 24HR TAB,SA TAKE ONE TABLET BY MOUTH ONCE A DAY FOR DEPRESSI ON SWALLOW WHOLE - DO NOT CRUSH OR CHEW. ORAL ACTIVE 05/01/2025 [id number] 5 JAMISON FLYNN 2024 90 [facility] BUPROPION HCL 300MG 24HR TAB,SA TAKE ONE TABLET BY MOUTH ONCE A DAY FOR DEPRESSI ON SWALLOW WHOLE - DO NOT CRUSH OR CHEW. ORAL DISCONT INUED 09/25/2024 [id number] JAMISON FLYNN 2023 90 [facility] CARVEDILOL 25MG TAB TAKE ONE TABLET BY MOUTH TWICE A DAY ORAL ACTIVE MEERA GOLDMAN 2015 [facility] CHOLECALCIF KRISTYN (LOW DOSE VIT D) - (OTC) TAB TAKE BY MOUTH ONCE A DAY ORAL ACTIVE JAMISON FLYNN 2024 [facility] CHOLECALCIF KRISTYN 25MCG (1,000UNIT) TAB TAKE ONE TABLET BY MOUTH DAILY ORAL ACTIVE FAHEEM PALACIOS 2017 [facility] CLONIDINE HCL 0.1MG TAB TAKE ONE TABLET BY MOUTH ONCE A DAY ORAL ACTIVE JAMISON FLYNN 2024 [facility] CLOPIDOGREL BISULFATE 75MG TAB TAKE ONE TABLET BY MOUTH DAILY ORAL ACTIVE MEERA GOLDMAN 2017 [facility] CLOPIDOGREL BISULFATE 75MG TAB TAKE ONE TABLET BY MOUTH ONCE A DAY ORAL ACTIVE JAMISON FLYNN 2024 [facility] DULOXETINE HCL 60MG CAP,EC TAKE ONE CAPSULE BY MOUTH TWICE A DAY FOR DEPRESSI ON DO NOT ABRUPTLY DISCONTI NUE MEDICATI ON. ORAL ACTIVE 05/01/2025 [id number] JAMISON FLYNN [address] [place] [address] [facility] DULOXETINE HCL 60MG CAP,EC TAKE ONE CAPSULE BY MOUTH TWICE A DAY FOR DEPRESSI ON DO NOT ABRUPTLY DISCONTI NUE MEDICATI ON. ORAL DISCONT INUED 11/07/2024 [id number] NAMRATA MULLINS 2023 180 [facility] DULOXETINE HCL 60MG CAP,EC TAKE ONE CAPSULE BY MOUTH ONCE A DAY FOR DEPRESSI ON DO NOT ABRUPTLY DISCONTI NUE MEDICATI ON. ORAL DISCONT INUED (EDIT) 09/25/2024 [id number] JAMISON FLYNN Tesha 2023 90 [facility] HYDROCHLORO THIAZIDE 25MG TAB TAKE ONE-HALF TABLET BY MOUTH ONCE A DAY ORAL ACTIVE JAMISON FLYNN 2024 [facility] ISOSORBIDE MONONITRATE 30MG TAB,SA TAKE ONE TABLET BY MOUTH ONCE A DAY ORAL ACTIVE JAMISON FLYNN 2024 [facility] LEVOTHYROXI NE NA 150MCG TAB (SYNTHROID) TAKE ONE TABLET BY MOUTH EVERY MORNING BEFORE A MEAL ORAL ACTIVE JAMISON FLYNN 2024 [facility] LOSARTAN POTASSIUM 100MG TAB TAKE ONE TABLET BY MOUTH DAILY ORAL ACTIVE MEERA GOLDMAN 2015 [facility] [place] POTASSIUM 100MG TAB TAKE ONE TABLET BY MOUTH ONCE A DAY ORAL ACTIVE JAMISON FLYNN 2024 [facility] MONTELUKAST NA 10MG TAB TAKE ONE TABLET BY MOUTH EVERY EVENING ORAL ACTIVE JAMISON FLYNN 2024 [facility] MULTIVITAMI NS CAP/TAB TAKE ONE TABLET BY MOUTH ONCE A DAY ORAL ACTIVE GEE JAMISON Tesha 2024 [facility] NISOLDIPINE (24HR SR) TAB,SA TAKE 17MG BY MOUTH ONCE A DAY ORAL ACTIVE JAMISON FLYNN 2024 [facility] ROSUVASTATI N CA 20MG TAB TAKE ONE-HALF TABLET BY MOUTH DAILY ORAL ACTIVE MEERA GOLDMAN 2014 [facility] ROSUVASTATI N CA 20MG TAB TAKE ONE-HALF TABLET BY MOUTH EVERY EVENING ORAL ACTIVE JAMISON FLYNN 2024 [facility] TIOTROPIUM 2.5MCG/ACTU AT INHL,ORAL,6 0D,4GM INHALE 1 BY ORAL INHALATI ON DAILY RESPIR ATORY (INHAL ATION) ACTIVE MEERA GOLDMAN 2014 [facility] TRAZODONE HCL 100MG TAB TAKE ONE TABLET BY MOUTH AT BEDTIME NEEDED FOR INSOMNIA ORAL ACTIVE 05/01/2025 [id number] JAMISON FLYNN 2024 90 [facility] TRAZODONE HCL 100MG TAB TAKE ONE TABLET BY MOUTH AT BEDTIME NEEDED FOR INSOMNIA ORAL DISCONT INUED 08/04/2024 [id number] JAMISON FLYNN 2023 90 [facility] Allergies, Adverse Reactions, Alerts Combined list of allergies from Department of Defense and [facility] Affairs facilities. It does not include entries that were removed or entered in error. Substance Category Reaction Severity Reaction type Status Date Reported Comments Source ADHESIVES Propensity to adverse reaction (finding) Eruption active 4 [facility] ATORVASTATIN Propensity to adverse reactions to drug (finding) Muscle pain active 4 [facility] CECLOR Propensity to adverse reactions to drug (finding) active 9 [facility] CECLOR Propensity to adverse reactions to drug (finding) Eruption active 4 [facility] [place] Propensity to adverse reaction (finding) Nasal congestion active 4 [facility] CYCLOBENZAPR INE Propensity to adverse reactions to drug (finding) Eruption active 9 [facility] [place] Propensity to adverse reaction (finding) Nasal congestion active 4 [facility] INFLUENZA Propensity to adverse reactions to drug (finding) Urticaria, Eruption active 4 [facility] NICOTINE PATCH Propensity to adverse reactions to drug (finding) Eruption active 4 [facility] ZOLPIDEM Propensity to adverse reactions to drug (finding) active 5 [facility] ZOLPIDEM Propensity to adverse reactions to drug (finding) Akinesia active 4 [facility] Immunizations Combined list of available immunizations from the Department of Defense and Veterans Affairs facilities. Immunization Series Date Given Administered By Site Reaction Lot Number CVX Code Drug Commissions Analyst Status Comments Source TDAP 2018 115 complet ed HISTORICA L INFORMATI ON - FROM PATIENT'S WRITTEN RECORD, [facility] PNEUMOCOCCAL POLYSACCHARID E PPV23 2011 33 complet ed had record [facility] TD(ADULT) UNSPECIFIED FORMULATION 2010 139 complet ed [facility] TD(ADULT) UNSPECIFIED FORMULATION 2003 139 complet ed [facility] Results Combined list of recent chemistry, hematology [...] 07, 2023 12:59 PM Reporting Lab: [facility] [address] [place], [place] [phone] Performing Lab: [facility] [address] [place] [address] [phone] [facility] COMPREHEN SIVE METABOLIC PANEL UREA NITROGEN [MASS/VOLUM E] IN SERUM OR PLASMA 15.6 mg/dL 9.0 - 25.0 06/06 Specimen Type: PLASMA Comment: No hemolysis noted. Ordering Provider: EMELIA FLYNN Report Released Date/Time: Jun 07, 2023 12:59 PM Reporting Lab: [facility] [address] [place] [phone] Performing Lab: [facility] [address] [place] [phone] [place] [address] [facility] COMPREHEN SIVE METABOLIC PANEL GLUCOSE [MASS/VOLUM E] IN SERUM OR PLASMA 97 mg/dL 72 - 99 06/06 Specimen Type: PLASMA Comment: No hemolysis noted. Ordering Provider: EMELIA FLYNN Report Released Date/Time: Jun 07, 2023 12:59 PM Reporting Lab: [facility] [address] [place] [phone] Performing Lab: [facility] [address] [facility] [phone] [facility] COMPREHEN SIVE METABOLIC PANEL SODIUM [MOLES/VOLU ME] IN SERUM OR PLASMA 142 meq/L 136 - 145 06/06 Specimen Type: PLASMA Comment: No hemolysis noted. Ordering Provider: EMELIA FLYNN Report Released Date/Time: Jun 07, 2023 12:59 PM Reporting Lab: [address] [phone] Performing Lab: [address] [phone] [facility] COMPREHEN SIVE METABOLIC PANEL POTASSIUM [MOLES/VOLU ME] IN SERUM OR PLASMA 3.7 meq/L 3.5 - 5 06/06 Specimen Type: PLASMA Comment: No hemolysis noted. Ordering Provider: EMELIA FLYNN Report Released Date/Time: Jun 07, 2023 12:59 PM Reporting Lab: [address] [phone] Performing Lab: [address] [phone] [facility] COMPREHEN SIVE METABOLIC PANEL CHLORIDE [MOLES/VOLU ME] IN SERUM OR PLASMA 105 meq/L 98 - 107 06/06 Specimen Type: PLASMA Comment: No hemolysis noted. Ordering Provider: EMELIA FLYNN Report Released Date/Time: Jun 07, 2023 12:59 PM Reporting Lab: [facility] [place] [facility] [phone] Performing Lab: [facility] [address] [place] [phone] [facility] COMPREHEN SIVE METABOLIC PANEL CARBON DIOXIDE, TOTAL [MOLES/VOLU ME] IN SERUM OR PLASMA 26 meq/L 22 - 31 06/06 Specimen Type: PLASMA Comment: No hemolysis noted. Ordering Provider: EMELIA FLYNN Report Released Date/Time: Jun 07, 2023 12:59 PM Reporting Lab: [address] [place] [address] Performing Lab: [facility] [address] [facility] [phone] [facility] COMPREHEN SIVE METABOLIC PANEL CALCIUM [MASS/VOLUM E] IN SERUM OR PLASMA 9.7 mg/dL 8.4 - 10.4 06/06 Specimen Type: PLASMA Comment: No hemolysis noted. Ordering Provider: EMELIA FLYNN Report Released Date/Time: Jun 07, 2023 12:59 PM Reporting Lab: [facility] [address] [facility] [phone] Performing Lab: [address] [phone] [facility] COMPREHEN SIVE METABOLIC PANEL PROTEIN [MASS/VOLUM E] IN SERUM OR PLASMA 6.7 g/dL 6 - 8.6 06/06 Specimen Type: PLASMA Comment: No hemolysis noted. Ordering Provider: EMELIA FLYNN Report Released Date/Time: Jun 07, 2023 12:59 PM Reporting Lab: [place] [address] [facility] [address] Performing Lab: [address] [phone] [facility] COMPREHEN SIVE METABOLIC PANEL ALBUMIN [MASS/VOLUM E] IN SERUM OR PLASMA 4.1 g/dL 3.4 - 5 06/06 Specimen Type: PLASMA Comment: No hemolysis noted. Ordering Provider: EMELIA FLYNN Report Released Date/Time: Jun 07, 2023 12:59 PM Reporting Lab: [facility] [place] [facility] [phone] Performing Lab: [address] [phone] [facility] COMPREHEN SIVE METABOLIC PANEL BILIRUBIN.T OTAL [MASS/VOLUM E] IN SERUM OR PLASMA 0.6 mg/dL 0.2 - 1.2 06/06 Specimen Type: PLASMA Comment: No hemolysis noted. Ordering Provider: EMELIA FLYNN Report Released Date/Time: Jun 07, 2023 12:59 PM Reporting Lab: [facility] [address] [facility] [phone] Performing Lab: [address] [phone] [facility] COMPREHEN SIVE METABOLIC PANEL ALKALINE PHOSPHATASE [ENZYMATIC ACTIVITY/VO LUME] IN SERUM OR PLASMA 97 U/L 40 - 150 06/06 Specimen Type: PLASMA Comment: No hemolysis noted. Ordering Provider: EMELIA FLYNN Report Released Date/Time: Jun 07, 2023 12:59 PM Reporting Lab: [address] [phone] Performing Lab: [phone] [place] [address] [facility] COMPREHEN SIVE METABOLIC PANEL ASPARTATE AMINOTRANSF ERASE [ENZYMATIC ACTIVITY/VO LUME] IN SERUM OR PLASMA 15 U/L 5 - 34 06/06 Specimen Type: PLASMA Comment: No hemolysis noted. Ordering Provider: EMELIA FLYNN Report Released Date/Time: Jun 07, 2023 12:59 PM Reporting Lab: [address] [phone] Performing Lab: [place] [address] [facility] [phone] [facility] COMPREHEN SIVE METABOLIC PANEL ALANINE AMINOTRANSF ERASE [ENZYMATIC ACTIVITY/VO LUME] IN SERUM OR PLASMA 14 U/L 8 - 40 06/06 Specimen Type: PLASMA Comment: No hemolysis noted. Ordering Provider: EMELIA FLYNN Report Released Date/Time: Jun 07, 2023 12:59 PM Reporting Lab: [facility] [address] [place] [phone] Performing Lab: [address] [phone] [facility] COMPREHEN SIVE METABOLIC PANEL GLOMERULAR FILTRATION RATE/1.73 SQ M.PREDICTED [VOLUME RATE/AREA] IN SERUM, PLASMA OR BLOOD BY CREATININE- BASED FORMULA (CKD-EPI 2021) 59.7 60 06/06 Specimen Type: PLASMA Comment: No hemolysis noted. Ordering Provider: EMELIA FLYNN Report Released Date/Time: Jun 07, 2023 12:59 PM Reporting Lab: [facility] [address] [place] [phone] Performing Lab: [facility] [address] [place] [phone] [facility] LIPID PANEL (STL) CHOLESTEROL [MASS/VOLUM E] IN SERUM OR PLASMA 146 mg/dL 0 - 200 06/06 Specimen Type: PLASMA Comment: No hemolysis noted. Ordering Provider: EMELIA FLYNN Report Released Date/Time: Jun 07, 2023 12:59 PM Reporting Lab: [facility] [address] [place] [phone] Performing Lab: [address] [address] [facility] LIPID PANEL (STL) TRIGLYCERID E [MASS/VOLUM E] IN SERUM OR PLASMA 107 mg/dL 0 - 150 06/06 Specimen Type: PLASMA Comment: No hemolysis noted. Ordering Provider: EMELIA FLYNN Report Released Date/Time: Jun 07, 2023 12:59 PM Reporting Lab: [facility] [address] [place] [phone] Performing Lab: [address] [phone] [facility] LIPID PANEL (STL) CHOLESTEROL IN LDL [MASS/VOLUM E] IN SERUM OR PLASMA BY CALCULATION 70 mg/dL 06/06 Specimen Type: PLASMA Comment: No hemolysis noted. Ordering Provider: EMELIA FLYNN Report Released Date/Time: Jun 07, 2023 12:59 PM Reporting Lab: [facility] [address] [place] [phone] Performing Lab: [facility] [address] [place] [phone] [facility] LIPID PANEL (STL) CHOLESTEROL IN HDL [MASS/VOLUM E] IN SERUM OR PLASMA 55 mg/dL 40 06/06 Specimen Type: PLASMA Comment: No hemolysis noted. Ordering Provider: EMELIA FLYNN Report Released Date/Time: Jun 07, 2023 12:59 PM Reporting Lab: [facility] [address] [place] [phone] Performing Lab: [facility] [address] [place] [address] [phone] [place] [address] [facility] CBC LEUKOCYTES [#/VOLUME] IN BLOOD BY AUTOMATED COUNT 7.0 10*3/uL 3.6 - 11.2 06/06 Specimen Type: BLOOD No comment entered. Ordering Provider: EMELIA FLYNN Report Released Date/Time: Jun 07, 2023 12:59 PM Reporting Lab: [facility] [address] [place] [address] Performing Lab: [address] [facility] CBC ERYTHROCYTE S [#/VOLUME] IN BLOOD BY AUTOMATED COUNT 4.76 10*6/uL 3.60 - 5.00 06/06 Specimen Type: BLOOD No comment entered. Ordering Provider: EMELIA FLYNN Report Released Date/Time: Jun 07, 2023 12:59 PM Reporting Lab: [facility] [address] [place] [phone] Performing Lab: [address] [phone] [facility] CBC HEMOGLOBIN [MASS/VOLUM E] IN BLOOD 12.9 g/dL 11.0 - 14.9 06/06 Specimen Type: BLOOD No comment entered. Ordering Provider: EMELIA FLYNN Report Released Date/Time: Jun 07, 2023 12:59 PM Reporting Lab: [facility] [address] [place] [address] Performing Lab: [address] [phone] [facility] CBC HEMATOCRIT [VOLUME FRACTION] OF BLOOD 39.7 32.6 - 43.4 06/06 Specimen Type: BLOOD No comment entered. Ordering Provider: EMELIA FLYNN Report Released Date/Time: Jun 07, 2023 12:59 PM Reporting Lab: [facility] [address] [place] [address] Performing Lab: [facility] [address] [place], [place] [phone] [address] [facility] CBC MCV [ENTITIC VOLUME] BY AUTOMATED COUNT 83.4 fL 80.0 - 100.0 06/06 Specimen Type: BLOOD No comment entered. Ordering Provider: EMELIA FLYNN Report Released Date/Time: Jun 07, 2023 12:59 PM Reporting Lab: [place] [address] Performing Lab: [address] [facility] CBC MCH [ENTITIC MASS] BY AUTOMATED COUNT 27.1 pg 27.0 - 34.0 06/06 Specimen Type: BLOOD No comment entered. Ordering Provider: EMELIA FLYNN Report Released Date/Time: Jun 07, 2023 12:59 PM Reporting Lab: [place] [address] Performing Lab: [address] [facility] CBC MCHC [MASS/VOLUM E] BY AUTOMATED COUNT 32.5 g/dL 33.0 - 36.0 06/06 L Specimen Type: BLOOD No comment entered. Ordering Provider: EMELIA FLYNN Report Released Date/Time: Jun 07, 2023 12:59 PM Reporting Lab: [facility] [address] [place] [address] Performing Lab: [address] [facility] CBC PLATELETS [#/VOLUME] IN BLOOD BY AUTOMATED COUNT 220 10*3/uL 150 - 400 06/06 Specimen Type: BLOOD No comment entered. Ordering Provider: EMELIA FLYNN Report Released Date/Time: Jun 07, 2023 12:59 PM Reporting Lab: [facility] [address] [facility] [address] Performing Lab: [facility] [address] [place] [address] [phone] [place] [address] [facility]OC CBC PLATELET MEAN VOLUME [ENTITIC VOLUME] IN BLOOD BY AUTOMATED COUNT 9.6 fL 7.5 - 11.2 06/06 Specimen Type: BLOOD No comment entered. Ordering Provider: EMELIA FLYNN Report Released Date/Time: Jun 07, 2023 12:59 PM Reporting Lab: [facility] [address] [facility] [address] Performing Lab: [address] [phone] [place] [address] [facility]OC CBC ERYTHROCYTE DISTRIBUTIO N WIDTH [RATIO] BY AUTOMATED COUNT 12.6 11.8 - 15.1 06/06 Specimen Type: BLOOD No comment entered. Ordering Provider: EMELIA FLYNN Report Released Date/Time: Jun 07, 2023 12:59 PM Reporting Lab: [facility] [address] [place] [phone] Performing Lab: [address] [phone] [place] [address] [facility] CBC LYMPHOCYTES /100 LEUKOCYTES IN BLOOD BY AUTOMATED COUNT 27 06/06 Specimen Type: BLOOD No comment entered. Ordering Provider: EMELIA FLYNN Report Released Date/Time: Jun 07, 2023 12:59 PM Reporting Lab: [facility] [address] [facility] [address] Performing Lab: [facility] [address] [facility] [phone] [place] [address] [facility] CBC MONOCYTES/1 00 LEUKOCYTES IN BLOOD BY AUTOMATED COUNT 7 06/06 Specimen Type: BLOOD No comment entered. Ordering Provider: EMELIA FLYNN Report Released Date/Time: Jun 07, 2023 12:59 PM Reporting Lab: [facility] [address] [facility] [id number] Performing Lab: [facility] [address] [facility] [id number] [facility] CBC NEUTROPHILS /100 LEUKOCYTES IN BLOOD BY AUTOMATED COUNT 64 06/06 Specimen Type: BLOOD No comment entered. Ordering Provider: EMELIA FLYNN Report Released Date/Time: Jun 07, 2023 12:59 PM Reporting Lab: [address] [address] Performing Lab: [address] [address] [facility] CBC EOSINOPHILS /100 LEUKOCYTES IN BLOOD BY AUTOMATED COUNT 2 06/06 Specimen Type: BLOOD No comment entered. Ordering Provider: EMELIA FLYNN Report Released Date/Time: Jun 07, 2023 12:59 PM Reporting Lab: [address] [address] Performing Lab: [phone] [place] [address] [facility]OC CBC BASOPHILS/1 00 LEUKOCYTES IN BLOOD BY AUTOMATED COUNT 1 06/06 Specimen Type: BLOOD No comment entered. Ordering Provider: EMELIA FLYNN Report Released Date/Time: Jun 07, 2023 12:59 PM Reporting Lab: [address] [address] Performing Lab: [address] [address] [facility] CBC LYMPHOCYTES [#/VOLUME] IN BLOOD BY AUTOMATED COUNT 1.86 10*3/uL 0.77 - 4.50 06/06 Specimen Type: BLOOD No comment entered. Ordering Provider: EMELIA FLYNN Report Released Date/Time: Jun 07, 2023 12:59 PM Reporting Lab: [facility] [address] [place] [address] Performing Lab: [address] [address] [facility] CBC MONOCYTES [#/VOLUME] IN BLOOD BY AUTOMATED COUNT 0.47 10*3/uL 0.19 - 0.80 06/06 Specimen Type: BLOOD No comment entered. Ordering Provider: EMELIA FLYNN Report Released Date/Time: Jun 07, 2023 12:59 PM Reporting Lab: [place] [address] Performing Lab: [place] [id number] [facility] CBC NEUTROPHILS [#/VOLUME] IN BLOOD BY AUTOMATED COUNT 4.48 10*3/uL 2.10 - 8.00 06/06 Specimen Type: BLOOD No comment entered. Ordering Provider: EMELIA FLYNN Report Released Date/Time: Jun 07, 2023 12:59 PM Reporting Lab: [place] [address] Performing Lab: [address] [facility] CBC EOSINOPHILS [#/VOLUME] IN BLOOD BY AUTOMATED COUNT 0.16 10*3/uL 0.00 - 0.60 06/06 Specimen Type: BLOOD No comment entered. Ordering Provider: EMELIA FLYNN Report Released Date/Time: Jun 07, 2023 12:59 PM Reporting Lab: [place] [address] Performing Lab: [address] [facility] CBC BASOPHILS [#/VOLUME] IN BLOOD BY AUTOMATED COUNT 0.05 10*3/uL 0.00 - 0.20 06/06 Specimen Type: BLOOD No comment entered. Ordering Provider: EMELIA FLYNN Report Released Date/Time: Jun 07, 2023 12:59 PM Reporting Lab: [place] [address] Performing Lab: [phone] [facility] HGA1C HEMOGLOBIN A1C/HEMOGLO BIN.TOTAL IN BLOOD 5.6 4.0 - 6.0 06/06 H Specimen Type: BLOOD Comment: NOTIFIED JAMISON FLYNN APPLE SORTER ON 06/07/23 @ 2226 MTS HGA1C reported incorrectly as 6.3 by [[id number]]. Changed to 5.6 on Jun 07, 2023@22:26 by [[id number]]. HGA1C flagged incorrectly as H by [[id number]]. Changed to normal on Jun 07, 2023@22:26 by [[id number]]. Ordering Provider: EMELIA FLYNN Report Released Date/Time: Jun 07, 2023 12:59 PM Reporting Lab: [place] [address] Performing Lab: [address] [facility] TSH (IN-PB- L) THYROTROPIN [UNITS/VOLU ME] IN SERUM OR PLASMA 0.171 u[IU]/mL 0.47 - 5 06/06 L Specimen Type: SERUM Comment: No hemolysis noted. Ordering Provider: EMELIA FLYNN Report Released Date/Time: Jun 07, 2023 12:59 PM Reporting Lab: [place] [address] Performing Lab: [phone] [place] [address] [facility]OC TSH ([facility] L) THYROXINE (T4) FREE [MASS/VOLUM E] IN SERUM OR PLASMA 1.55 ng/mL 0.7 - 1.48 06/06 H Specimen Type: SERUM Comment: No hemolysis noted. Ordering Provider: EMELIA FLYNN Report Released Date/Time: Jun 07, 2023 12:59 PM Reporting Lab: [facility] [address] [place] [address] Performing Lab: [phone] [place] [address] [facility]OC MICRAL/CR EAT PROFILE (STL) ALBUMIN [MASS/VOLUM E] IN URINE 25.6 mg/L 06/06 Specimen Type: URINE No comment entered. Ordering Provider: EMELIA FLYNN Report Released Date/Time: Jun 07, 2023 12:59 PM Reporting Lab: [address] [address] Performing Lab: [address] [address] [facility] MICRAL/CR EAT PROFILE (STL) ALBUMIN/CRE ATININE [MASS RATIO] IN URINE 12 mg/g 0 - 29 06/06 Specimen Type: URINE No comment entered. Ordering Provider: EMELIA FLYNN Report Released Date/Time: Jun 07, 2023 12:59 PM Reporting Lab: [address] [address] Performing Lab: [phone] [place] [address] [facility]OC MICRAL/CR EAT PROFILE (STL) CREATININE [MASS/VOLUM E] IN URINE 222.3 mg/dL 47 - 110 06/06 H Specimen Type: URINE No comment entered. Ordering Provider: EMELIA FLYNN Report Released Date/Time: Jun 07, 2023 12:59 PM Reporting Lab: [address] [address] Performing Lab: [address] [phone] [place] [address] [facility]OC HIV COMBO FOURTH GENERATIO N (STL) HIV 1+2 AB+HIV1 P24 AG [PRESENCE] IN SERUM OR PLASMA BY IMMUNOASSAY Nonreact kena 06/06 Specimen Type: SERUM No comment entered. Ordering Provider: EMELIA FLYNN Report Released Date/Time: Jun 07, 2023 12:59 PM Reporting Lab: [address] [address] Performing Lab: [address] [place] [address] [facility] HEP C Ab HCV Ab (STL) HEPATITIS C VIRUS AB [PRESENCE] IN SERUM Nonreact kena 06/06 Specimen Type: SERUM No comment entered. Ordering Provider: EMELIA FLYNN Report Released Date/Time: Jun 07, 2023 12:59 PM Reporting Lab: [facility] [address] [facility] [address] Performing Lab: [facility] [address] [place] [address] [facility] Encounters Combined list of: 1) Encounters from Department of [facility] facilities going backup to the last 18 months, not all [place] inpatient encounters are included; 2) Encounters from the Department of [facility] facilities going backup to 280 months. Location Location Details Encounter Type Encounter Number Reason For Visit Attending Provider ADM Date DC Date Status Disposition Source [facility] Outpatient Encounter [id number] 04/03 [facility] Outpatient Encounter [id number] 04/03 [facility] Outpatient Encounter [id number] 04/12 [facility] [place] En[place] [id number] 04/15 [facility] Outpatient Encounter [id number] 05/07 [facility] En[facility] [id number] 05/08 [facility] Outpatient Encounter [id number] 05/14 [facility] Outpatient Encounter [id number] 05/16 [facility] Outpatient Encounter [id number] 05/16 [facility] Outpatient Encounter [id number] [facility] OFFICE O/P NEW LOW 30 MIN [id number] Diagnos is: ICD-10- CM Z00.00 Encntr for general adult medical exam w/o abnorma l finding s Jhonny FLYNN 06/06 [facility] FEE [id number] Diagnos is: ICD-10- CM Z55.9 Problem s related to educati on and literac y, unspeci fied VALDEMAR CASTANO O 06/06 [facility] Outpatient Encounter [id number] Jhonny FLYNN 06/06 [facility] Outpatient Encounter [id number] 06/06 [facility] Outpatient Encounter [id number] Jhonny FLYNN 06/07 [facility] Outpatient Encounter [id number] 06/09 [facility] Outpatient Encounter [id number] 06/09 [facility] Outpatient Encounter [id number] 07/22 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 OTIS LANDRUM 08/01 [facility] Outpatient Encounter [id number] Filomena BECKFORD JR 08/01 [facility] Outpatient Encounter [id number] ESME YOST 08/01 [facility] Outpatient Encounter [id number] 08/04 [facility] Outpatient Encounter [id number] 08/13 [facility] Outpatient Encounter [id number] DARYL AMOS I T 09/24 [facility] Outpatient Encounter [id number] 10/20 [facility] Outpatient Encounter [id number] FLACO JOHNSON 11/04 [facility] Outpatient Encounter [id number] 11/04 [facility] Outpatient Encounter [id number] ESME YOST 11/06 [facility] Outpatient Encounter [id number] 11/12 [facility] Outpatient Encounter [id number] 11/24 [facility] Outpatient Encounter [id number] CLAUDIA ESQUIVELELDA LA 04/22 [facility] Outpatient Encounter [id number] CLAUDIA ESQUIVELELDA LA 04/22 [facility] Outpatient Encounter [id number] FLACO JOHNSON KIRAN 04/24 [facility] Outpatient Encounter [id number] 04/28 [facility] N [facility] OFFICE O/P EST LOW 20 MIN [id number] Diagnos is: ICD-10- CM 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 Social History Type Response Date Comment Sourc e Tobacco smoking status NHIS VA-TOBACCO USER EVERY DAY 06/07/2023 [facility] History of tobacco use VA-TOBACCO USE WI 30 MIN OF WAKEUP 06/07/2023 [facility] History of tobacco use VA-TOBACCO USER E VERY DAY 12/23/2020 [facility] History of tobacco use VA-TOBACCO USER E VERY DAY 12/15/2019 [facility] History of tobacco use VA-TOBACCO USER E VERY DAY 01/09/2018 [facility] History of tobacco use V16 CURRENT TOBACCO USER 09/16/2017 [facility] History of tobacco use V16 TOBACCO CESSA TION ED (PROVIDER) 12/24/2016 [facility] History of tobacco use V16 CURRENT TOBACCO USER 10/02/2016 [facility] History of tobacco use V16 CURRENT TOBACCO USER 11/28/2015 [facility] History of tobacco use V16 TOBACCO CESSA TION ED (PROVIDER) 12/03/2014 [facility] History of tobacco use V16 CURRENT TOBACCO USER 12/03/2014 [facility] History of tobacco use V16 CURRENT TOBACCO USER 11/09/2009 [facility] History of tobacco use V16 CURRENT TOBACCO USER 09/20/2008 [facility] This section is an empty social history section. DoD Advance Directives List of completed, amended, or rescinded Advance Directives on record at Department of Veterans Affairs facilities. An actual copy of the Directive is not included. Date Advance Directive Provider Source 01/09/2018 ADVANCE DIRECTIVE DISCUSSION Corie DOBBINS [facility] 12/28/2014 ADVANCE DIRECTIVE DISCUSSION Corie DOBBINS [facility]
--- OUTSIDE RECORDS SUMMARY | 2024-10-12 19:03 | XMS_ITS | Encounter Summary ---
Author Organization [facility] Healthcare Address [address] [place] [address] Care Team Providers Care Supervisor Framing Mill Name Role Phone Jese Candelaria MD Unavailable Ever Marx MD Primary Care Provider [phone] Reason for Visit * Reason Onset Date Comments Forms Request 09/15/2024 Medical Clearanc e Encounter Details Date Type Department Care Team (Late st Contact Info) Description 09/15/2024 Telephone [facility] [address] [address] Ever Marx MD [address] [place] [address] Forms Request (Medical Clearance) Social History Tobacco Use Types Packs/Day Years Used Date Smoking Tobacco: Some Days Cigarettes 0.3 53.5 Started: 1973 Smokeless Tobacco: Never [facility] Utilities Answer Date Recorded In the past 12 months has Media Chaperone, gas, oil, or water [employer] threatened to shut off services in your [...] week 04/12/2023 How often do you attend [facility] or hindu services? Never 04/12/2023 Do you belong to any clubs o r organizations such as orthodox groups, unions, fraternal or athletic groups, or [...] place to sleep or slept in a half-way (including now)? No 04/12/2023 Personal Safety Answer [...] on file Legal Sex Female 11:22 AM [employer] Gender Identity Not on file Sexual Orientation Not on file documented as of this encounter Functional Status * Audit-C Score Answer Date of Assessment Author 0 09/17/2024 3:11 PM CDT Berna George MA * Question Answer Date of Assessment Author Q1: How often do you have a drink containing alcohol? Never 09/17/2024 3:11 PM CDT Christina George MA Q2: How many drinks containing alcohol do you have on a typical day when you are drinking? Patient does not drink 09/17/2024 3:11 PM CDT Christina George MA Q3: How often do you have six or more drinks on one occasion? Never 09/17/2024 3:11 PM CDT Christina George MA documented as of this encounter Miscellaneous Notes * Telephone Encounter - Christina George MA - 09/17/2024 4:04 PM CDT done * Telephone Encounter - Ever Marx MD - 09/17/2024 9:15 AM CDT Form was completed] \needs to be faxed with last offfice note * Telephone Encounter - Christina George MA - 09/16/2024 11:56 AM CDT I have the clearance form, I will give it to Dr. Marx today to do. * Telephone Encounter - Nilda Geiger - 09/15/2024 12:09 PM CDT Forms Request Form requested: Other Form Form Name: Medical Clearance for Cataract Surgery Date needed: before 09/28/2024 How is patient delivering to office: patient states that [facility] sent to the office via fax Who is form being returned to? Third Democrat Name of Third Democrat: [employer] How to return form to third libertarian? Fax Fax Number to use for return of forms: fax on form it was sent on Additional Comments: Patient states this has been faxed over twice now. She is having cataract surgery on 09/28/2024, please notify patient when fax is sent Does message need to be routed? Yes-Action Needed documented in this encounter Plan of Treatment Not on file documented as of this encounter Visit Diagnoses Not on filedocumented in this encounter Care Teams Supervisor Framing Mill Relationship Specialty Start Date End Date Ever Marx MD [address] [place] [address] PCP - General Family Medicine 05/15/23 Jese Candelaria MD [address] [place] [address] Consulting Physician Pulmonary Disease 04/15/23 documented as of this encounter
--- OUTSIDE RECORDS SUMMARY | 2024-10-12 19:03 | XMS_ITS | Encounter Summary ---
Author Organization [facility] Address [address] [place] [address] Care Team Providers Care Sweet Pickle Maker Name Role Phone Peter Sawant DO Primary Care Provider [phone] Abhijeet Carvajal MD Unavailable [phone] Norris Coulter MD Unavailable [phone] Fredy Foreman MD Unavailable [phone] Marv Roper Unavailable Evelyn Chavez MD Unavailable Encounter Details Date Type Department Care Team (Late st Contact Info) Description 01/09/2016 Scanned Document Pulselocker [facility] Spine and Neurological Surgery [address] [place], [place] [phone] Abhijeet Carvajal MD [address] [place], [place] [phone] Social History Tobacco Use Types Packs/Day Years [...] on filedocumented in this encounter Care Teams Sweet Pickle Maker Relationship Specialty Start Date End Date Peter SawantDO PCP - General Family Medicine 08/08/15 Abhijeet Carvajal MD Surgeon Neurosurgery 11/03/15 Norris Coulter MD [address] [place] [address] Consulting Physician Pulmonary Disease 11/03/15 Fredy Foreman MD [address] [place] [address] Expert Witness Cardiovascular Disease 11/03/15 Marv Roper PA [address] [place] [address] Physician Compensation Expert Neurosurgery 11/03/15 Evelyn Chavez MD [address] [place] [phone] Consulting Physician Rheumatology 05/03/20 documented as of this encounter
--- OUTSIDE RECORDS SUMMARY | 2024-10-12 19:03 | XMS_ITS | Encounter Summary ---
Author Name [facility] [place] Organization [facility] [place] Address [address] [place] [address] Care Team Providers Care Blowing Engineer Name Role Phone JAMISON FLYNN Primary Care [...] PART A Oct 06, 2022 PART A [id number] LOUIE VIEYRA PATIENT MEDICARE (WNR) MEDICARE (M) PART B Oct 06, 2022 PART B [id number] LOUIE VIEYRA PATIENT Selected Encounter This section includes the information on record at [place] for the Encounter. Date/Time Encounter Type Encounter Description Reason Provider Source Apr 22, 2024 01:06 PM Outpatient Encounter ADMIN PAT ACTIVTIES (MASNONCT) ESQUIVELBRITTANI TOVAR Rigo Encounter Template Text not used by [place] Plan of Treatment: Future Appointments (+ 6 months) and Future Tests (+/- 45 days) The Plan of Treatment section includes future care activities for the patient from all [facility]. This section includes future appointments and future orders which are active, pending or scheduled. Future Appointments This section includes appointments that were scheduled to occur 6 months from the date of the Encounter, up to a maximum of 20 appointments. The data comes from all [place] treatment facilities. Appointment Date/Time Appointment Type Appointme nt Facility Name Apr 28, 2024 01:30 PM AMBULATORY - MEDICINE [facility] Advance Directives: All historical and current Section Date Range: From patient's date of to the date document was created. This section includes ALL of a patient's completed or amended [place] Advance and Rescinded Directives. The entries below indicate that a directive exists for the patient, but an actual copy is not included with this document. The data comes from all [facility]. Date Advance Directives Provider Source Jan 09, 2018 ADVANCE DIRECTIVE DISCUSSION Corie DOBBINS [facility] Dec 28, 2014 ADVANCE DIRECTIVE DISCUSSION [facility] Encounter Notes: All associated encounter notes This [...] 04/23/2024 09:32 Receipt Acknowledged By: 04/24/2024 15:08 /finn/ AGUSTIN MATAMOROS ADVANCED DISASTER OR DAMAGE CONTROL SPECIALIST ====== --- Original Document --- 04/22/24 PHARMACY COMMUNITY CARE PRESCRIPTION PROCESSING NOTE STL: Pharmacy service received prescription(s) via: Inbound ERx ELIGIBILITY: Pharmacy service cannot accept this prescription because the patient is not CCN (Care in the Community) eligible. PRESCRIPTION INFORMATION: [facility], [address], [address], [place] [address] phone: [phone] fax: [phone] 1) eRx Drug : buPROPion HCL XL [...] non-VA medication list. /finn/ BRITTANI ESQUIVEL PharmD [facility] Pharmacist, Pharmacy Signed: 04/22/2024 13:47 Receipt Acknowledged By: 04/23/2024 09:30 /finn/ JAMISON FLYNN, MSN, AGNP-C NURSE PRACTITIONER JAMISON FLYNN [facility] Apr 22, 2024 01:06 PM PHARMACY MEDICATIO N MGT DISCHARGE NOTE: LOCAL TITLE: PH[facility]Y [facility] PRESCRIPTION PROCESSING NOT STANDARD TITLE: PHARMACY MEDICATION MGT DISCHARGE NOTE DATE OF NOTE: APR 22, 2024@13:06 ENTRY DATE: APR 22, 2024@13:06:54 AUTHOR: BRITTANI ESQUIVEL [facility] EXP COSIGNER: URGENCY: STATUS: COMPLETED PHARMACY [facility] PRESCRIPTION PROCESSING NOTE STL Has ADDENDA Pharmacy service received prescription(s) via: Inbound ERx ELIGIBILITY: Pharmacy service cannot accept this prescription because the patient is not CCN (Care in the Community) eligible. PRESCRIPTION INFORMATION: [facility] Information[facility], [address], [address], [place] [address] phone: [phone] fax: [phone] 1) eRx Drug : buPROPion HCL XL [...] MELISAP-C NURSE PRACTITIONER 04/23/2024 ADDENDUM STATUS: COMPLETED has not been seen in primary care since 06/2023. Needs to schedule PC phone appt, VVC, or F2F visit to discuss med increase. CC MSA to assist with scheduling /finn/ JAMISON FLYNN, MSN, AGNP-C NURSE PRACTITIONER Signed: 04/23/2024 09:32 Receipt Acknowledged By: * AWAITING SIGNATURE * AGUSTIN MATAMOROS,BRITTANI TOVAR [facility]
--- OUTSIDE RECORDS SUMMARY | 2024-10-12 19:03 | XMS_ITS | Encounter Summary ---
Author Organization [facility] Address [address] [place] [address] Care Team Providers Care Global Ceo Name Role Phone Peter Sawant DO Primary Care Provider [phone] Abhijeet Carvajal MD Unavailable [phone] Norris Coulter MD Unavailable [phone] Fredy Foreman MD Unavailable [phone] Marv Roper Unavailable Evelyn Chavez MD Unavailable Encounter Details Date Type Department Care Team (Late st Contact Info) Description 02/14/2016 Scanned Document Numerous [facility] Spine and Neurological Surgery [address] [place], [place] [phone] Abhijeet Carvajal MD [address] [place], [place] [phone] Social History Tobacco Use Types Packs/Day Years [...] on filedocumented in this encounter Care Teams Global Ceo Relationship Specialty Start Date End Date Peter SawantDO PCP - General Family Medicine 08/08/15 Abhijeet Carvajal MD Surgeon Neurosurgery 11/03/15 Norris Coulter MD [address] [place] [address] Consulting Physician Pulmonary Disease 11/03/15 Fredy Foreman MD [address] [place] [address] Board Handler Cardiovascular Disease 11/03/15 Marv Roper PA [address] [place] [address] Physician Organizational Development Consultant Neurosurgery 11/03/15 Evelyn Chavez MD [address] [place] [phone] Consulting Physician Rheumatology 05/03/20 documented as of this encounter
--- OUTSIDE RECORDS SUMMARY | 2024-10-12 19:03 | XMS_ITS | Referral Summary ---
Author Organization [facility] Address [address] [place] [address] Care Team Providers Care Tower Watchman Name Role Phone Jese Candelaria MD Unavailable Demar Marx MD Primary Care Provider [phone] Encounters Date Type Department Care Team Description 10/12/[address] [address] Sarita Mondragon 09/17/2024 3:30 PM CDT Office Visit [facility] Primary Care at [address] [place] [phone] Demar Marx MD Acute maxillary sinusitis, recurrence not specified (Primary Dx); Essential hypertension; Post-nasal drainage; Acute cough; Mixed hyperlipidemia; Seasonal allergic rhinitis due to pollen 09/15/2024 Telephone [facility] [address] [place] [address] [address] [place] [address] Demar Marx MD Forms Request (Medical Clearance) 09/10/[address] [address] Agusto Gomez 08/07/2024 Results Follow-Up [employer] [facility] at [address] [place] [address] Letitia Joel MA SHANEL 08/07/2024 Orders Only [employer] [facility] at [address] [address] Chary Devries MD Atherosclerosis of [place] arteries of extremities with intermittent claudication, bilateral legs (Primary Dx) 08/04/2024 10:56 AM CDT - 08/04/2024 11:59 PM CDT Hospital Encounter [facility] [address] [place] [address] [facility] Atherosclerosis of [place] arteries of extremities with intermittent claudication, bilateral legs Discharge Disposition: Discharge to home or self care from Last 3 Months Allergies Active Allergy Reactions Criticality Noted Date Comments Amlodipine Other (See comments) Low 06/21/2021 Atorvastatin Muscle pain,Other (See comments),Unknown Medium 03/15/2011 Myalgia Other reaction(s): Muscle Pain Myalgia Cefaclor Rash Medium 08/17/2013 Clopidogrel Other (See comments) Low 12/26/2020 Bleeding ulcer Cyclobenzaprine Hives Medium 04/11/2023 Flu Vac,Qval 2013-14 (2-49yrs) Other (See comments) Low 04/12/2023 Pt [...] mg capsule Take 1 capsule by mouth camp 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 before 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 Active acetaminophen (TYLENOL) 500 mg [...] wheezing or shortness of breath 180 mL 11 04/15/[address] (CYMBALTA) 60 mg capsule Take 2 capsules (120 mg total) by mouth daily 60 capsule 11 04/15/19 24 Active nitroglycerin (NITROSTAT) 0.4 mg [...] day with meals 60 tablet 11 07/29/19 25 026 Active levothyroxine (SYNTHROID) 100 mcg tablet [...] 30 tablet 11 04/15/19 24 025 Discontinued amoxicillin (AMOXIL) 500 mg tablet/capsule Take 1 tablet/capsule (500 mg total) by mouth 2 (two) times a day for 7 days 14 tablet/caps ule 09/18/19 25 025 Active Problems Problem Noted Date Diagnosed Date Physical exam, annual 04/21/2024 Assessment & Plan (04/21/2024 1:08 PM COPY LATHE TENDER): Discussed lifestyle modifications, diet and exercise. Routine blood work ordered/reviewed today. Yearly vision and dental examinations. Current smoker 05/15/2023 Assessment & Plan (04/21/2024 1:03 PM COPY LATHE TENDER): Recommend quitting smoking Wants to quit States [...] day Assessment & Plan (04/21/2024 1:01 PM COPY LATHE TENDER): BP Readings from Last 3 Encounters: 04/21/24 [...] day Assessment & Plan (05/15/2023 11:16 AM COPY LATHE TENDER): BP Readings from Last 3 Encounters: 05/15/23 [...] 04/15/2023 Assessment & Plan (04/21/2024 1:00 PM COPY LATHE TENDER): Needs follow up with pulm Mitral valve regurgitation 04/15/2023 Thyroid disease 04/12/2023 Assessment & Plan (05/15/2023 11:17 AM COPY LATHE TENDER): No results found for: TSH No tsh on file Repeat labs now Cont lvt 150 mcg every day for now CAD (coronary artery disease) 04/12/2023 Assessment & Plan (05/15/2023 11:16 AM COPY LATHE TENDER): Cont coreg, crestor 10 mg qhs Rfepeat lipid panel Referral to cardio S/P CABG (coronary artery bypass graft) 04/12/19 24 Assessment & Plan (04/21/2024 1:00 PM COPY LATHE TENDER): Continue cardio follow up Assessment & Plan (05/15/2023 10:51 AM COPY LATHE TENDER): Will refer to cardiology for eval Mixed [...] now Assessment & Plan (04/21/2024 1:00 PM COPY LATHE TENDER): No results found for: CHOL, POCCHOL No results found for: HDL, POCHDL No results found for: LDLCALC, CLDL, HIRISKLDL, LDL, LDLC, LDLDIRECT, LDLMED, LDLP, POCLDL, SCRLDL, SMALLLDLP, TOTLDLC No results found for: TRIG, POCTRIG No results found for: POCCHDLR No results found for: POCNONHDL No results found for: POCCHLPL Lipids now Assessment & Plan (05/15/2023 10:51 AM COPY LATHE TENDER): No results found for: CHOL, POCCHOL No results found for: HDL, POCHDL No results found for: LDLCALC, CLDL, HIRISKLDL, LDL, LDLC, LDLDIRECT, LDLMED, LDLP, POCLDL, SCRLDL, SMALLLDLP, TOTLDLC No results found for: TRIG, POCTRIG No results found for: POCCHDLR No results found for: POCNONHDL No results found for: POCCHLPL Anxiety 04/12/2023 COPD with emphysema 04/11/2023 Assessment & Plan (05/15/2023 10:52 AM COPY LATHE TENDER): Will refer to pulm for eval Continue [...] Q uit: Not Asked; Counseling Given: Yes [facility] Utilities Answer Date Recorded In the past 12 months has e [employer], gas, oil, or water [employer] threatened to shut off services in your [...] often do you attend chur ch or yazdanism services? Never 04/12/2023 Do you belong to [...] on file Legal Sex Female 11:22 AM COPY LATHE TENDER Gender Identity Not on file Sexual Orientation Not on file Last Filed Vital Signs Vital Sign Reading Time Taken Comments Blood Pressure 138/80 09/17/2024 3:10 PM CDT Pulse 71 09/17/2024 3:10 PM CDT Temperature 37 C (98.6 F) 04/21/2024 12:47 PM COPY LATHE TENDER Respiratory Rate 16 09/17/2024 3:10 PM CDT Oxygen Saturation 97% 09/17/2024 3:10 PM CDT Inhaled Oxygen Concentration - - Weight 75.3 kg (166 lb) 09/17/2024 3:10 PM CDT Height 162.6 cm (5' 4.02) 09/17/2024 3:10 PM CD T Body Mass Index 28.48 09/17/2024 3:10 PM CDT Plan of Treatment Not on file Procedures Procedure Name Priority Date/Time Associated Diagnosis Comments US SHANEL Schedule Routine, Read Routine (OP Routine) 08/04/2024 11:27 AM CDT Atherosclerosis of [place] arteries of extremities with intermittent claudication, bilateral legs CT CHEST WO CONTRAST F/U LUNG SCREEN PROTOCOL Schedule Routine, Read Routine (OP Routine) 06/12/2024 1:14 PM COPY LATHE TENDER Abnormal CT lung screening Lung nodule HEPATITIS C ANTIBODY Routine 04/21/2024 1:35 PM COPY LATHE TENDER Need for hepatitis B screening test DEXA [...] AM CDT Narrative 08/04/2024 11:45 AM CDT [address] [place] [address] Ankle Brachial Index Report Patient Name: EDUARDA VIEYRA : 1960 (64y 6m) Gender: F Study Date: 08/04/2024 11:09:00 AM Occupational Health And Safety Manager: Order Provider: CHARY DEVRIES Quality: Adequate Ref Provider: CHARY DEVRIES PROCEDURES: Arterial Report: A bilateral extremities ankle/brachial index was performed. INDICATIONS: I70.213 Atherosclerosis of [place] arteries of extremities with intermittent claudication, [...] Procedure Note Eulogio Durant MD - 08/04/[address] [place] [address] Ankle Brachial Index Report Patient Name: EDUARDA VIEYRA : 1960 (64y 6m) Gender: F Study Date: 08/04/2024 11:09:00 AM Occupational Health And Safety Manager: Order Provider: CHARY DEVRIES Quality: Adequate Ref Provider: CHARY DEVRIES PROCEDURES: Arterial Report: A bilateral extremities ankle/brachial index wasperformed. INDICATIONS: I70.213 Atherosclerosis of [place] arteries of extremities withintermittent claudication, bilateral [...] 11:44:01 AM CDT us Chary Devries MD [facility] US PROCEDURES Final Re sult * CT Chest WO Contrast F/U Lung Screen Protocol (06/12/2024 1:14 PM COPY LATHE TENDER) Anatomical Region Laterality Modality Chest N/A Computed [...] Michi Chauhan D.O. PS: PS Report ID: [id number] Reading Location: [place] [address] Procedure Note Michi Chauhan DO - 06/16/2024 EXAM DESCRIPTION: CT CHEST [...] Michi Chauhan D.O. PS: PS Report ID: [id number] Reading Location: [place] [address] us Demar Marx MD IMG CT PROCEDURES Final Result * Hepatitis C antibody Blood (04/21/2024 1:35 PM COPY LATHE TENDER) Hep C Ab Nonreactive Nonreactive Comment: Interpretive [...] last revised on 2019. Testing performed by: [facility], [address] [place] [address]., [id number] Blood 04/21/2024 1:35 PM COPY LATHE TENDER 04/21/2024 3:46 PM COPY LATHE TENDER us Demar Marx MD LAB MICROBIOLOGY - GENERAL ORDER AGUSTIN Final Result AIDA ELLISON [place] [address] [facility] [place] [address] * Dexa Axial Skeleton Bone Density 1 Or 2 Site (10/21/2023 3:16 PM CDT) Anatomical Region Laterality Modality Body N/A Other 10/21/2023 7:47 PM CDT Narrative 10/21/2023 7:48 PM CDT EXAM DESCRIPTION: DEXA AXIAL SKELETON BONE DENSITY 1 OR MORE SITES REASON FOR STUDY: 63 y/o year old F with given history of: osteoporosis screening Screening. Postmenopausal Juvenile Corrections Officer/Model: Aframe Discovery SL (S/N [id number]) CLINICAL INFORMATION: Current height: 62.5 inches Maximum [...] Dann Ramos M.D. MF: TIAN Report ID: [id number] Reading Location: [id number] Procedure Note Dann Ramos MD - 10/21/2023 EXAM DESCRIPTION: DEXA AXIAL SKELETON BONE DENSITY 1 OR MORE SITES REASON FOR STUDY: 63 y/o year old F with given history of:osteoporosis screening Screening. Postmenopausal Juvenile Corrections Officer/Model: Philo SL (S/N [id number]) CLINICAL INFORMATION: Current height: 62.5 inches Maximum [...] Dann Ramos M.D. MF: TIAN Report ID: [id number] Reading Location: [place] [address] Demar Marx MD IM DXA PROCEDURES Final Result * SCREENING MAMMOGRAM [...] Advance Directives For more information, please contact: [phone] * Full Code (Latest Code Status on File) Date Activated Date Inactivated Comments 04/11/2023 11:21 PM 04/15/2023 9:43 PM Care Teams Tower Watchman Relationship Specialty Start Date End Date Demar Marx MD [address] [place] [address] PCP - General Family Medicine 05/15/23 Jese Candelaria MD [address] [place] [address] Consulting Physician Pulmonary Disease 04/15/23
--- OUTSIDE RECORDS SUMMARY | 2024-10-12 19:03 | XMS_ITS | Encounter Summary ---
Author Organization [facility] Address [address] [place] [address] Care Team Providers Care Brick Yard Hand Name Role Phone Peter Sawant Primary Care Provider [phone] Abhijeet Carvajal MD Unavailable [phone] Norris Coulter MD Unavailable [phone] Fredy Foreman MD Unavailable [phone] Marv Roper Unavailable Evelyn Chavez MD Unavailable Encounter Details Date Type Department Care Team (Late st Contact Info) Description 06/21/2016 Scanned Document [facility] [address] [place], [place] [id number] Abhijeet Carvajal MD [address] [place], [place] [id number] Social History Tobacco Use Types Packs/Day Years [...] of Assessment Author No 04/19/2016 10:07 AM [facility] * Does this person have serious difficulty walking or climbing stairs? Answer Date of Assessment Author No 04/19/2016 10:07 AM [facility] * Does this person have difficulty dressing or bathing? Answer Date of Assessment Author Yes 04/19/2016 10:07 AM [facility] documented as of this encounter Plan of Treatment Not on file documented as of this encounter Visit Diagnoses Not on filedocumented in this encounter Care Teams Brick Yard Hand Relationship Specialty Start Date End Date Peter Sawant DO PCP - General Family Medicine 08/08/15 Abhijeet Carvajal MD Surgeon Neurosurgery 11/03/15 Norris Coulter MD [address] [place] [phone] Consulting Physician Pulmonary Disease 11/03/15 Fredy Foreman MD [address] [place] [address] Law Writer Cardiovascular Disease 11/03/15 Marv Roper PA [address] [place] [phone] Physician Tank Terminal Gauger Neurosurgery 11/03/15 Evelyn Chavez MD [address] [place] [address] Consulting Physician Rheumatology 05/03/20 documented as of this encounter
--- OUTSIDE RECORDS SUMMARY | 2024-10-12 19:03 | XMS_ITS | Encounter Summary ---
Author Name [facility] Organization [facility] Address [address] [place] [address] Care Team Providers Care Budget Clerk Name Role Phone JAMISON FLYNN Primary Care [...] PART A Oct 06, 2022 PART A [id number] LOUIE VIEYRA PATIENT MEDICARE (WNR) MEDICARE (M) PART B Oct 06, 2022 PART B [id number] [phone] LOUIE VIEYRA PATIENT Selected Encounter This section includes the information on record at [place] for the Encounter. Date/Time Encounter Type Encounter Description Reason Provider Source Apr 28, 2024 01:30 PM OFFICE O/P EST LOW 20 MIN PRIMARY CARE/MEDICINE ICD-10-CM I25.10 Athscl heart disease of [place] coronary artery w/o ESRGIO [place] Encounter Template Text not used by [place] Assessments - Encounter Diagnoses This section includes the primary and secondary diagnoses documented for the Encounter. Date/Time Primary/Secondary Diagnosis Diagnosis Name Provider Source Apr 28, 2024 02:01 PM PRIMARY Athscl heart disease of [place] coronary artery w/o SERGIO Chi [facility] Apr 28, 2024 02:01 PM SECONDARY Allergic rhinitis, unspecified SERGIO FLYNN [facility] Apr 28, 2024 02:01 PM SECONDARY Anxiety disorder, unspecified SERGIO FLYNN [facility] Apr 28, 2024 02:01 PM SECONDARY Chronic obstructive pulmonary disease, unspecified SERGIO FLYNN [facility] Apr 28, 2024 02:01 PM SECONDARY Chronic systolic (congestive) heart failure SERGIO FLYNN [facility] Apr 28, 2024 02:01 PM SECONDARY Essential (primary) hypertension SERGIO FLYNN [facility] Apr 28, 2024 02:01 PM SECONDARY Hypothyroidism, unspecified SERGIO FLYNN [facility] Apr 28, 2024 02:01 PM SECONDARY Insomnia, unspecified SERGIO FLYNN [facility] LIZ [facility] Apr 28, 2024 02:01 PM SECONDARY Major depressive disorder, single episode, unspecified SERGIO FLYNN [facility] Apr 28, 2024 02:01 PM SECONDARY Obstructive sleep apnea (adult) (pediatric) SERGIO FLYNN [facility] Apr 28, 2024 02:01 PM SECONDARY Oth disrd of bone density and structure, unspecified site SERGIO FLYNN [facility] Apr 28, 2024 02:01 PM SECONDARY Tobacco use SERGIO FLYNN [facility] Social History: Smoking Status (Most current) and Tobacco Use (All prior to encounter date) This section includes the most current, and the historical, smoking and tobacco- related health factors from the [place] facility where the Encounter took place. Current Smoking Status This section includes the most current smoking, or tobacco-related health factor, from the [place] facility where the Encounter took place. Date/Time Current Smoking Status Comment Harinder Carmona 01, 2024 12:30 PM VA-TOBACCO USER EVERY DAY [facility] Tobacco Use History This section includes a history of the smoking, or tobacco-related health factors, that were collected on or before the date of the Encounter. The data comes from the [place] facility where the Encounter took place. Date/Time Smoking Status/Tobacco Use Comment F acility Jun 07, 2023 12:30 PM VA-TOBACCO USE ADVICE [facility] Jun 07, 2023 12:30 PM VA-TOBACCO USE DIRECTOR PHARMACY SERVICES NO [facility] Jun 07, 2023 12:30 PM VA-TOBACCO USE MED NO [facility] Jun 07, 2023 12:30 PM VA-TOBACCO USE WI [address] UP [facility] Jun 07, 2023 12:30 PM VA-TOBACCO USER EVERY DAY [facility] Advance Directives: All historical and current Section Date Range: From patient's date of to the date document was created. This section includes ALL of a patient's completed or amended [place] Advance and Rescinded Directives. The entries below indicate that a directive exists for the patient, but an actual copy is not included with this document. The data comes from all [place] facilities. Date Advance Directives Provider Source Jan 09, 2018 ADVANCE DIRECTIVE DISCUSSION [facility] Dec 28, 2014 ADVANCE DIRECTIVE DISCUSSION Corie DOBBINS [facility] Encounter Notes: All associated encounter notes This section contains the clinical notes associated to the Encounter. Date/Time Encounter Note(s) Provider Source Apr 28, 2024 01:31 PM TELEHEALTH NOTE: LOCAL TITLE: PRIMARY CARE VIDEO CONNECT [facility] STANDARD TITLE: TELEHEALTH NOTE DATE OF [...] backup communication with patient: Patient Phone: Other: [facility] Informed Consent: Group Telehealth Agreement Form and Confidentiality, Risks and Consequences, Privacy, Dignity and Behavior, was reviewed and participants orally consented to those conditions to participate in this [facility] Group Visit. CLASS: Whole Health Pathway Orientation Chief Complaint: Follow up History of Present Illness: 64 y/o male who was contacted for the scheduled [facility] visit. The purpose of the visit today is to follow up on the chronic medical conditions mentioned below. Last PCP visit: 06/07/2023 Community Providers: - PCP Dr. Ever Marx, [facility] - Aboriginal Liaison Officer Dr. Barros, [facility] - Nurse Tech: cannot recall name of provider. F/U for COPD/ALICIA MERCERIZER H/O partial hysterectomy w/ bilateral oophorectomy due uterine fibroids CAD. H/O CABG. Denies anginal complaints. Tobacco use. Quit in 2010 following [place]. Started smoking again in 2012 after her [...] like to receive the medication from the [place]. After discussion with the clinical pharmacist there is concerns with D-D interactions with the higher dose of bupropion and duloxetine 60mg BID. SOURCE(S) OF HISTORY: -Patient, JLV PAST MEDICAL HISTORY: 1) CAD - Coronary Artery Disease ([facility]CT [id number]) comment: H/O CABG 2) HTN - Hypertension ([facility]CT 87898552) 3) Hypothyroidism ([facility]CT [id number]) 4) COPD - Chronic Obstructive Pulmonary Disease ([facility] [id number]) 5) Major depressive disorder 6) Insomnia 7) Anxiety 8) Obstructive Sleep Apnea of Adult ([facility]CT 6560062504647) 9) Tobacco User ([facility] [id number]) 10) Allergic Rhinitis ([facility] [id number]) SURGICAL HISTORY: Cholecystectomy CABG Hysterectomy Cervical fusion [...] PCP. # CAD/HTN/HFpEF: - Managed by outside Aboriginal Liaison Officer. Denies anginal complaints. BP controlled. - Continue carvedilol 25mg BID, rosuvastatin 10mg, clopidogrel 75mg, losartan 100mg, nisoldipine 17mg, clonidine 0.1mg, isosorbide 30mg, HCTZ 14.5mg 75mg. Stopped ASA due to GI bleed # Allergic Rhinitis: - Symptoms stable on Montelukast and azelastine spray # COPD: - Severe COPD noted per PFT in 03/2024. Managed by outside Nurse Tech. - Continue current inhaler regimen - Contact the clinic with symptoms of worsening SOB, cough, or wheezing. # ALICIA: - Last sleep study completed in 2010 - Using supplemental oxygen 2L HS per directed of her outside Nurse Tech. # Tobacco use: - Declined additional resources [...] Date Facility Info INFLUENZA, UNSPECIFIED FORMULATI* 06/07/2023 [facility]* <I> PNEUMOCOCCAL CONJUGATE, UNSPECIF* 06/07/2023 [facility]* <I> TDAP 06/07/2023 [facility]* <I> ZOSTER RECOMBINANT 06/07/2023 [facility]* <I> Suicide Risk: Patient was assessed for risk to self or others. Patient denies thoughts of self or other harm; and reports no access to means of self or other harm. Crisis Line information provided to patient and press #1 for , text to 815222, or chat online at [employer]/chat Follow-Up: f2f visit 1 year or sooner PRN Plan of care has been discussed with including expected therapeutic benefits and potential side effects of prescribed medications and treatments. Current medication list has been reconciled with and updated accordingly. [place]eter was instructed to keep all scheduled appointments and to contact manager traffic for any additional problems. verbalizes understanding and is in agreement with [...] NURSE PRACTITIONER Signed: 04/29/2024 10:37 JAMISON FLYNN [facility] CB
--- OUTSIDE RECORDS SUMMARY | 2024-10-12 19:03 | XMS_ITS | Clinical Summary ---
Author Organization [facility] Address [address] [place] [address] [place] [address] Care Team Providers Care Director Appointment Name Role Phone Peter Sawant DO Primary Care Provider [phone] Peter Sawant DO Unavailable [phone] Source Comments [facility],non-owned Affiliates and Associated Physician Practices is amultiple site organization consisting of ambulatory clinics and hospital sitesin [place], [place], [place] and [place]. This disclosure is being madepursuant to the Care Everywhere program and may not contain all information available regarding this patient. Last updated 17.[facility] Allergies Active Allergy Reactions Criticality Noted [...] document. Alwaysverify current medications with the patient. thiamine (VITAMIN B-1) 100 MG tabletIndicatio ns:Thiamine Deficiency Take 100 mg by mouth once daily Reasons: Deficiency of Vitamin B1 Active vitamin D3 (CHOLECALCIFERO L) 10 MCG (400 UNIT) tabletIndicatio ns:Osteoporosis ,125 mcg Take 125 mcg by mouth once daily Reasons: Osteoporosis, 125 mcg Active Probiotic Product (PROBIOTIC-10 PO) Active traZODone (DESYREL) 100 MG tabletIndicatio ns:Insomnia Take 100 mg by mouth nightly as needed for Insomnia Reasons: Trouble Sleeping Active cloNIDine (CATAPRES) 0.1 MG tabletIndicatio ns:Hypertension Take 0.1 mg by mouth 3 times daily as needed TID PRN for systolic BP greater than 160. Reasons: High Blood Pressure Disorder Active metoprolol succinate XL 24hr (TOPROL XL) 25 MG tabletIndicatio ns:Hypertension Take 25 mg by mouth once daily Reasons: High Blood Pressure Disorder Active DULoxetine (CYMBALTA) 60 MG capsuleIndicati ons:Major Depressive Disorder Take 120 mg by mouth once daily Reasons: Major Depressive Disorder Active tiZANidine (ZANAFLEX) 2 MG tabletIndicatio ns:Muscle Spasticity Take 2 mg by mouth every 8 hours as needed for Muscle Spasms Reasons: Muscle Spasticity Active buPROPion XL 24hr (WELLBUTRIN-XL) 300 MG tablet 1 Active carvedilol (COREG) 25 MG tablet 1 Active losartan (COZAAR) 100 MG tablet 1 Active nisoldipine CR 24hr (SULAR) 17 MG 1 Active rosuvastatin (CRESTOR) 10 MG tablet 1 Active nitroGLYCERIN (NITROSTAT) 0.4 MG tablet 1 Active tiotropium (SPIRIVA RESPIMAT) 2.5 MCG/ACT inhaler Inhale 1 puff by mouth Active azelastine (ASTELIN) 0.1 % nasal spray [place] 1 spray into the nose Active hydroCHLOROthia zide (HYDRODIURIL) 12.5 MG Take 12.5 mg by mouth once daily Active albuterol-iprat ropium (DUO-NEB) 0.5-2.5 (3) MG/3ML nebulizer solution Inhale 3 mL by mouth every 6 hours as needed for Shortness of Breath or Wheezing 75 mL 5 2 Active clotrimazole-be tamethasone (LOTRISONE) 1-0.05 % cream APPLY TO AFFECTED AREA 2 TIMES DAILY FOR 14 DAYS 45 g 1 2 Active albuterol HFA (Proventil; Ventolin; Proair) 108 (90 Base) MCG/ACT inhaler INHALE 2 PUFFS INTO THE LUNGS EVERY 6 HOURS NEEDED. 8 g 5 2 Active levothyroxine (Synthroid) 150 MCG tablet Take 1 (one) tablet by mouth once daily 90 tablet 3 2 Active clopidogrel (plaVIX) 75 MG tablet TAKE 1 TABLET BY MOUTH EVERY DAY 90 tablet 1 2 Active montelukast (Singulair) 10 MG tabletIndicatio ns:Seasonal Allergic Rhinitis TAKE 1 (ONE) TABLET BY MOUTH AT BEDTIME PATIENT NEEDS APPOINTMENT REASONS: HAYFEVER 30 tablet 3 Active Active Problems Problem Noted Date Diagnosed Date End-stage renal disease 06/21/2021 Rheumatoid arthritis involvi ng multiple sites with positive rheumatoid factor 06/21/2021 Chronic obstructive pulmonary disease 06/21/2021 Rectal bleeding 10/04/2020 HTN (hypertension) Depression Hyperlipidemia Immunizations Immunization Administration Dates Next Due Covid Moderna primary monova lent 12+ yr 0.5mL 07/07/2020,07/07/2020,06/09/2020,2020 PNEUMOCOCCAL PPSV23 06/07/2011 TD VACCINE 06/06/2010,03/29/2004 Social History Tobacco Use Types Packs/Day Years Used Date Smoking Tobacco: Every Day Cigarettes Smokeless Tobacco: Never Alcohol Use Standard Drinks/Week Comments Never 0 (1 standard drink = 0.6 oz pur e alcohol) PHQ-2 Answer Date Recorded PHQ2 TOTAL SCORE 0 01/16/2022 Comments Unknown Sex and Gender Information Value Date Recorded Sex Assigned at Not on file Legal 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 Gender Identity Not on file Sexual Orientation [...] 10:47 AM CDT Height 162.6 cm (5' 4) 01/16/2022 10:47 AM CDT Body Mass Index [...] VACCINE (Season Ended) 2024 COLON MONITORING 10/20/2030 10/20/2020, 10/20/2020 COLONOSCOPY - COLON CA SCREENING 10/20/2030 10/20/2020, 10/20/2020 Colorectal Cancer Screening 10/20/2030 HEPATITIS B [...] examination Hyperlipidemia, unspecified hyperlipidemia type Hypertension, essential ENDOSCOPY, COLON, DIAGNOSTIC Routine 10/20/2020 10:49 AM CDT from Last 3 Months or Most Recently Relevant to Health Maintenance Results * HEMOGLOBIN A1C (12/26/2020 12:03 PM CDT) Hemoglobin A1c 5.5 4.0 - 5.6 % 12/26/2020 4:43 PM CDT [facility] Estimated Average Glucose 111 mg/dL 12/26/2020 4:43 PM CDT [facility] Blood BLOOD SPECIMEN / Unknown Venipuncture / Unknown 12/26/2020 12:03 PM CDT 12/26/2020 12:03 PM CDT us Peter Sawant DO LAB - CHEMISTRY ORDERABLES Fi nal Result Performing Organization Address City/State/[facility] Co de Phone Number [facility] [address] * ENDOSCOPY, COLON, DIAGNOSTIC (10/20/2020 10:49 AM CDT) Report Endoscopy POC _ Patient Name: Eduarda Salcedo Date of : 1960 Room: double Gender: Female Procedure Date No Time: 10/20/2020 _ REFERRING MD: PROVIDERS: Fritz Oliveira MD MEDICINES: See the Anesthesia note for documentation of the administered medications INDICATIONS: High risk colon cancer surveillance: Personal history of colonic polyps PROCEDURE: Pre-Anesthesia Assessment: - Prior to the procedure, a History and Physical was performed, and patient medications and allergies were reviewed. The patient's tolerance of previous anesthesia was also reviewed. The risks and benefits of the procedure and the sedation options and risks were discussed with the patient. All questions were answered, and informed consent was obtained. Prior Anticoagulants: The patient has taken no previous anticoagulant or antiplatelet agents. ASA Grade Assessment: III - A patient with severe systemic disease. After reviewing the risks and benefits, the patient was deemed in satisfactory condition to undergo the procedure. After I obtained informed consent, the scope was passed under direct vision. Throughout the procedure, the patient's blood pressure, pulse, and oxygen saturations were monitored continuously. The Colonoscope was introduced through the anus and advanced to the cecum, identified by appendiceal orifice and ileocecal valve. The colonoscopy was performed without difficulty. The patient tolerated the procedure well. The quality of the bowel preparation was adequate to identify polyps 6 mm and larger in size. The ileocecal valve, appendiceal orifice, and rectum were photographed. Scope Withdrawal Time 0 hours 6 minutes 5 seconds FINDINGS: The perianal and digital rectal examinations were normal. The entire examined colon appeared normal on direct and retroflexion views. COMPLICATIONS: No immediate complications. IMPRESSION: - The entire examined colon is normal on direct and retroflexion views. - No specimens collected. RECOMMENDATIONS: - Patient has a contact number available for emergencies. The signs and symptoms of potential delayed complications were discussed with the patient. Return to normal activities tomorrow. Written discharge instructions were provided to the patient. - Resume previous diet. - Continue present medications. - Repeat colonoscopy in 10 years for screening purposes. - Return to primary care physician as previously scheduled. Procedure Code(s): --- Professional --- G0105, Colorectal cancer screening; colonoscopy on individual at high risk Diagnosis Code(s): --- Professional --- Z86.010, Personal history of colonic polyps CPT copyright 2017 [employer]. All rights reserved. The codes documented in this report are preliminary and upon car pick up driver review may be revised to meet current compliance requirements. Fritz Oliveira MD 10/20/2020 10:58:25 AM Number of Addenda: 0 Note Initiated On: 10/20/2020 10:49 AM Attending Participation: [facility] ENDOSCOPY 10/20/2020 10:4 9 AM CDT us Fritz Oliveira MD GI PROCEDURE ORDERABLES E dited Result - Final [facility] ENDOSCOPY from Last 3 Months or Most Recently Relevant to Health Maintenance [place] [facility] [place] Address: [facility] [id number] [place] [address] T Advance Directives * Full Code (Latest Code Status on File) Date Activated Date Inactivated Comments 10/04/2020 5:31 AM 10/04/2020 7:08 PM Care Teams Director Appointment Relationship Specialty Start Date End Date Peter Sawant DO PCP - General Family Medicine 12/21/20 Peter Sawant DO Family Medicine 12/21/20
--- OUTSIDE RECORDS SUMMARY | 2024-10-12 19:03 | XMS_ITS | Encounter Summary ---
Author Organization [facility] [place] [facility] Address [address] [place] [address] Care Team Providers Care Clinical Psychologist Licensed Name Role Phone SavanaPeter eckert Primary Care Provider [phone] Abhijeet Carvajal MD Unavailable [phone] Norris Coulter MD Unavailable [phone] Fredy Foreman MD Unavailable [phone] Marv Roper Unavailable Evelyn Chavez MD Unavailable Encounter Details Date Type Department Care Team (Late st Contact Info) Description 08/10/2016 Scanned Document [facility] [address] [place] [address] Marv Roper PA [address] [place] [address] Social History Tobacco Use Types Packs/Day Years [...] on filedocumented in this encounter Care Teams Clinical Psychologist Licensed Relationship Specialty Start Date End Date Peter Sawant DO PCP - General Family Medicine 08/08/15 Abhijeet Carvajal MD Surgeon Neurosurgery 11/03/15 Norris Coulter MD [address] [place] [address] Consulting Physician Pulmonary Disease 11/03/15 Fredy Foreman MD [address] [place] [address] Junior Network Administrator Cardiovascular Disease 11/03/15 Marv Roper PA [address] [place] [address] Physician Life Insurance Salesperson Neurosurgery 11/03/15 Evelyn Chavez MD [address] [place] [phone] Consulting Physician Rheumatology 05/03/20 documented as of this encounter
--- OUTSIDE RECORDS SUMMARY | 2024-10-12 19:03 | XMS_ITS | Encounter Summary ---
Author Organization [facility] Address [address] [place] [address] Care Team Providers Care Stand In Name Role Phone Peter Sawant DO Primary Care Provider [phone] Abhijeet Carvajal MD Unavailable [phone] Norris Coulter MD Unavailable [phone] Fredy Foreman MD Unavailable [phone] Marv Roper Unavailable Evelyn Chavez MD Unavailable Encounter Details Date Type Department Care Team (Late st Contact Info) Description 11/04/2015 Scanned Document [facility] [address] [facility], [address] [place], [place] [id number] Evelyn Chavez MD [address] [place], [place] [id number] Social History Tobacco Use Types Packs/Day Years [...] on filedocumented in this encounter Care Teams Stand In Relationship Specialty Start Date End Date Peter Sawant DO PCP - General Family Medicine 08/08/15 Abhijeet Carvajal MD Surgeon Neurosurgery 11/03/15 Norris Coulter MD [address] [place] [phone] Consulting Physician Pulmonary Disease 11/03/15 Fredy Foreman MD [address] [place] [address] Drywall Sander Cardiovascular Disease 11/03/15 Marv Roper PA [address] [place] [address] Physician Aerial Installer Neurosurgery 11/03/15 Evelyn Chavez MD [address] [place] [address] Consulting Physician Rheumatology 05/03/20 documented as of this encounter
--- OUTSIDE RECORDS SUMMARY | 2024-10-12 19:03 | XMS_ITS | Encounter Summary ---
Author Organization [facility] Address [address] [place] [address] Care Team Providers Care Supervisor Pipeline Name Role Phone Savana Peter Rajani JOHNSON Primary Care Provider [phone] Abhijeet Carvajal MD Unavailable [phone] Norris Coulter MD Unavailable [phone] Fredy Foreman MD Unavailable [phone] Marv Roper Unavailable Evelyn Chavez MD Unavailable Encounter Details Date Type Department Care Team (Late st Contact Info) Description 01/16/2022 Scanned Document [facility], [facility] [address] [facility] [place] [address] [place] [address] Александр Yates DO [address] [place] [address] [address] [place] [address] Social History Tobacco Use Types Packs/Day Years [...] filedocumented in this encounter Care Teams Supervisor Pipeline Relationship Specialty Start Date End Date Peter Sawant DO PCP - General Family Medicine 08/08/15 Abhijeet Carvajal MD Surgeon Neurosurgery 11/03/15 Norris Coulter MD [address] [place] [address] Consulting Physician Pulmonary Disease 11/03/15 Fredy Foreman MD [address] [place] [address] Forging Machine Operator Cardiovascular Disease 11/03/15 Marv Roper PA [address] [place] [phone] Physician Arts And Crafts Teacher Neurosurgery 11/03/15 Evelyn Chavez MD [address] [place] [phone] Consulting Physician Rheumatology 05/03/20 documented as of this encounter
--- OUTSIDE RECORDS SUMMARY | 2024-10-12 19:03 | XMS_ITS | Encounter Summary ---
Author Organization [facility] Address [address] [place] [address] Care Team Providers Care Iron Miner Blasting Name Role Phone Peter Sawant DO Primary Care Provider [phone] Abhijeet Carvajal MD Unavailable [phone] Norris Coulter MD Unavailable [phone] Ferdy Foreman MD Unavailable [phone] Marv Roper Unavailable Evelyn Chavez MD Unavailable Encounter Details Date Type Department Care Team (Late st Contact Info) Description 03/07/2016 Scanned Document [facility] Rhe[facility] [address] [facility], [address] [place], [place] [id number] Evelyn Chavez MD [address] [place], [place] [id number] Social History Tobacco Use Types Packs/Day Years [...] on filedocumented in this encounter Care Teams Iron Miner Blasting Relationship Specialty Start Date End Date Peter Sawant DO PCP - General Family Medicine 08/08/15 Abhijeet Carvajal MD Surgeon Neurosurgery 11/03/15 Norris Coulter MD [address] [place] [phone] Consulting Physician Pulmonary Disease 11/03/15 Fredy Foreman MD [address] [place] [phone] Airborne Sensor Specialist Cardiovascular Disease 11/03/15 Marv Roper PA [address] [place] [phone] Physician Tester Operator Helper Neurosurgery 11/03/15 Evelyn Chavez MD [address] [place] [address] Consulting Physician Rheumatology 05/03/20 documented as of this encounter
--- NOTE | 2024-10-12 19:04 | ED.SKABFB ---
HPI - Skin/Abscess/Foreign Bdy General Chief complaint: Skin/Abscess/Foreign Body Stated complaint: Insect Bite Time Seen by Provider: 10/12/24 19:12 Source: patient, RN notes reviewed and old records reviewed Mode of arrival: ambulatory Limitations: no limitations History of Present Illness HPI narrative: 64-year-old female presents to the [facility] with concerns of a tick bite. patient states that she pulled off a tick off her right flank, now has a red circular bull's-eye rash. States that she pulled off on , rash for couple of days, unsure of when it started. Denies any fevers. Denies any other symptoms. Patient history of cardiac issues, COPD. Thyroid issues. Patient is a very poor historian. Related Data Home Medications ?Medication ?Instructions ?Recorded ?Confirmed ?Last Taken ?Type albuterol sulfate 90 mcg/actuation 2 puff inhalation Q6H PRN sob 12/08/21 12/08/21 Unknown History aerosol inhaler bupropion HCl 300 mg 24 hr tablet, 300 mg PO DAILY 12/08/21 12/08/21 Unknown History extended release carvedilol 25 mg tablet 25 mg PO BID 12/08/21 12/08/21 Unknown History clopidogrel 75 mg tablet 75 mg PO DAILY 12/08/21 12/08/21 Unknown History duloxetine 60 mg capsule,delayed 60 mg PO BID 12/08/21 12/08/21 Unknown History release ipratropium 0.5 mg-albuterol 3 mg 3 ml inhalation Q6H PRN sob 12/08/21 12/08/21 Unknown History (2.5 mg base)/3 mL nebulization soln lactobacillus combination no.4 3 3,000 mmu cells PO DAILY 12/08/21 12/08/21 Unknown History billion cell capsule (Probiotic) losartan 100 mg tablet 100 mg PO DAILY 12/08/21 12/08/21 Unknown History montelukast 10 mg tablet 10 mg PO DAILY 12/08/21 12/08/21 Unknown History nisoldipine 17 mg tablet,extended 17 mg PO DAILY 12/08/21 12/08/21 Unknown History release 24 hr nitroglycerin 0.2 mg/hr See Rx Instructions .Route 12/08/21 12/08/21 Unknown History transdermal 24 hour patch .COMPLEX PRN SOB rosuvastatin 10 mg tablet 10 mg PO DAILY 12/08/21 12/08/21 Unknown History trazodone 100 mg tablet 100 mg PO DAILY 12/08/21 12/08/21 Unknown History vitamin B complex 1 tablet PO DAILY 12/08/21 12/08/21 Unknown History vitamin E mixed 400 unit capsule 400 unit PO DAILY 12/08/21 12/08/21 Unknown History isosorbide mononitrate 30 mg mg PO 07/07/24 Unknown History tablet,extended release 24 hr levothyroxine 100 mcg tablet mcg 07/07/24 Unknown History Allergies Allergy/AdvReac Type Severity Reaction Status Date / Time cefaclor (From Ceclor) Allergy Mild Rash Verified 07/07/24 16:15 cyclobenzaprine (From Allergy Mild Rash Verified 07/07/24 16:15 Flexeril) Review of Systems Review of Systems: All systems reviewed & are unremarkable except as noted in HPI and below Constitutional: Constitutional: Reports no additional constitutional complaints ENT: Reports system reviewed and no additional complaints, except as documented Musculoskeletal: Musculoskeletal: Reports no additional musculoskeletal complaints Integumentary/Breasts: Skin/Breast: Reports as per HPI and Reports rash ( Right flank, erythema migraines) [facility] Past Medical History Medical History COPD (chronic obstructive pulmonary disease) Comments At the time of my signature, I reviewed and agree with the nursing past medical, surgical, social, and family history. There is no relevant family history pertinent to the patient complaint. Exam Const: General: cooperative, no acute distress, well developed, alert, ill appearing chronically and well nourished Nutritional Appearance: well nourished Orientation/consciousness: patient oriented x3 Limitations: no limitations Other: older than stated age HENMT: Head: normal to inspection Neck: Neck: normal visual inspection, full ROM, no lymphadenopathy and no meningeal signs Chest: Chest palpation & inspection: normal inspection of the chest Resp: Effort & Inspection: normal respiratory effort and able to speak in complete sentences Cardio: Rate: regular rate Skin: General skin exam: normal color and no rashes or lesions noted Rashes: rashes noted Other: right flank, erythema migrans Neuro: General: patient oriented x3, gait normal, moves all extremities and no meningeal signs Cognition (Neuro): normal cognition Speech: normal speech Gait exam (Neuro): Normal gait present Extrem: General: normal to inspection, full ROM, capillary refill normal and normal gait Psych: Appearance: grossly normal and well kempt Mental Status: mental status grossly normal Speech and movement: Normal speech and movement present and Clear speech present Affect: normal affect Attitude: cooperative Course Course Level of Care: Express Care Visit Vital Signs Vital signs: Vital Signs Temperature 98.1 F 10/12/24 19:06 Pulse Rate 57 L 10/12/24 19:06 Respiratory Rate 20 10/12/24 19:06 Blood Pressure 127/100 H 10/12/24 19:06 Pulse Oximetry 98 10/12/24 19:06 Oxygen Delivery Room Air 10/12/24 19:06 Temperature 98.1 F 10/12/24 19:06 Pulse Rate 57 L 10/12/24 19:06 Respiratory Rate 20 10/12/24 19:06 Blood Pressure 127/100 H 10/12/24 19:06 Pulse Oximetry 98 10/12/24 19:06 Oxygen Delivery Room Air 10/12/24 19:06 Reviewed MDM - Skin/Abscess/Foreign Bdy MDM Narrative Medical decision making narrative: patient sitting in exam room patient is not sure of medications, tried to pull from outside pharmacy. Patient reports pulling a tick off this side, right flank. Now with a red bulls eye rash. Patient appropriate for outpatient treatment with close follow-up Discharge instructions reviewed with patient, as well as provided in writing per nursing staff. The instructions also include specific and strict return/GO TO THE ER as well as f/u information. All questions have been answered, and the patient deny any further questions with discharge and discharge plan. Some parts of this dictation were generated by voice recognition software and may contain typographical and/or grammatical inaccuracies. Differential Diagnosis Differential diagnosis: Likely abscess of skin or subcutaneous tissue, herpes zoster, allergic reaction to drug, cellulitis, insect bites and other (Lyme disease) Critical Care Time Critical Care Time Critical Care Time: No Discharge Plan Discharge Clinical Impression: Tick bite, Erythema migrans (Lyme disease) Patient Disposition: Home Condition: Stable Instructions: Antibiotic Form, Lyme Disease (ED), Tick Bite (ED) Additional Instructions: Take antibiotics as prescribed follow-up with primary care provider for further evaluation, testing as needed and treatment keep area clean and dry. Wash with warm soapy water, pat dry for new or worsening symptoms go directly to the emergency room Patient Language: Georgian Prescriptions: New doxycycline monohydrate 100 mg tablet 100 mg PO BID Qty: 20 0RF No Action albuterol sulfate 90 mcg/actuation HFA aerosol inhaler 2 puff inhalation Q4-6H PRN (Reason: shortness of breath or wheezing) 30 Days Qty: 8.5 0RF nitroglycerin 0.2 mg/hr patch 24 hour See Rx Instructions .ROUTE .COMPLEX PRN (Reason: SOB) Rx Instructions: PRESCRIBED clopidogrel 75 mg tablet 75 mg PO DAILY trazodone 100 mg tablet 100 mg PO DAILY montelukast 10 mg tablet 10 mg PO DAILY losartan 100 mg tablet 100 mg PO DAILY rosuvastatin 10 mg tablet 10 mg PO DAILY bupropion HCl 300 mg tablet extended release 24 hr 300 mg PO DAILY nisoldipine 17 mg tablet extended release 24 hr 17 mg PO DAILY carvedilol 25 mg tablet 25 mg PO BID duloxetine 60 mg capsule,delayed release(DR/EC) 60 mg PO BID vitamin B complex Tablet 1 tablet PO DAILY vitamin E mixed [Natural Vitamin E] 400 unit Capsule 400 unit PO DAILY Probiotic 3 billion cell Capsule 3,000 mmu cells PO DAILY Rx Instructions: administer with a meal ipratropium-albuterol 0.5 mg-3 mg(2.5 mg base)/3 mL solution for nebulization 3 ml INHALATION Q6H PRN (Reason: sob) albuterol sulfate 90 mcg/actuation HFA aerosol inhaler 2 puff INHALATION Q6H PRN (Reason: sob) isosorbide mononitrate 30 mg tablet extended release 24 hr PO levothyroxine 100 mcg tablet albuterol sulfate 90 mcg/actuation HFA aerosol inhaler 2 puff INHALATION QID PRN (Reason: shortness of breath or wheezing) Qty: 8.5 0RF Follow-up/Referrals: Arianne,MD Ever [Primary Care Provider] - 2 Weeks ([facility] care follow up) Time of Disposition: 19:22
--- OUTSIDE RECORDS SUMMARY | 2024-10-12 19:05 | XMS_ITS | Continuity of Care Document ---
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 It does not include entries that were removed or entered in error. Problem Status Onset Date Problem Type Date of Resolution Comments Source Allergic Rhinitis (SCT 82764065) Active Condition [facility] Anxiety Active Condition [facility] Anxiety disorder Active Condition [facility] Benign essential hypertension (SNOMED CT 8750896) Active Condition [facility] CAD - Coronary Artery Disease (SCT 83169087) Active Condition Jun 07, 2023 Entered By: RACHEL FLYNN Comment: H/O CABG [facility] CHF - Congestive Heart Failure (SCT 12826622) Active Condition [facility] Chronic obstructive lung disease Active Condition [facility] COPD - Chronic Obstructive Pulmonary Disease (SCT 19107751) Active Condition [facility] Coronary Artery Disease * Active Condition [facility] H/O: hysterectomy Active Condition [facility] History of cholecystectomy Active Condition [facility] History of coronary artery bypass grafting Active Condition Dec 28, 2014 Entered By: Corie DOBBINS Comment: CABG 06/2010 [facility] HTN - Hypertension (SCT 14630648) Active Condition [facility] Hypothyroidism (SCT 21055168) Active Condition [facility] Hypothyroidism (SNOMED CT 22724616) Active Condition [facility] Insomnia Active Condition [facility] Major depressive disorder Active Condition [facility] Major depressive disorder (SNOMED CT 855320174) Active Condition [facility] Nicotine dependence (SNOMED CT 64808039) Active Condition [facility] Obstructive Sleep Apnea of Adult (SCT 0133740303414) Active Condition [facility] Obstructive sleep apnea syndrome Active Condition [facility] Osteopenia Active Condition [facility] Pain in joint involving ankle and foot (ICD-9-CM 719.47) Active Condition [facility] Tobacco User (SCT 571381910) Active Condition [facility] Diagnosis: ICD-10-CM I25.10 Athscl heart disease of [place] dee-ni' coronary artery w/o ang pctrs Active Diagnosis [facility] Diagnosis: ICD-10-CM Z71.89 Other specified counseling Active Diagnosis [facility] Diagnosis: ICD-10-CM Z55.9 Problems related to education and literacy, unspecified Active Diagnosis [facility] Diagnosis: ICD-10-CM Z00.00 Encntr for general adult medical exam w/o abnormal findings Active Diagnosis [facility] Medications Combined list of outpatient medications from Department of Defense and [facility] Affairs facilities.Medications provided include 1) outpatient medications from the last 15 months, and 2) patient-reported medications. Medication Details Route Status Patient Instructions Prescription Expires Prescription Number Last Dispense Date Ordering Provider Order Date Order Qty Source 0 NON-VA MEDICATION ASSESSMENT DONE [facility] USE NISOLDIP INE ER 17 MG DIRECTED DAILY NOT APPLIC ABLE ACTIVE MEERA GOLDMAN 2016 [facility] ALBUTEROL SO4 0.083% INHL,3ML,UD USE 1 VIAL (3ML) INHALED UD PRN RESPIR ATORY (INHAL ATION) ACTIVE MEERA GOLDMAN 2016 [facility] ALBUTEROL SO4 90MCG/ACTUA T (CFC-F) INHL,ORAL,8 .5GM INHALE 2 PUFFS BY ORAL INHALATI ON FOUR TIMES A DAY RESPIR ATORY (INHAL ATION) ACTIVE JAMISON FLYNN 2024 [facility] ASPIRIN 81MG TAB,EC TAKE ONE TABLET BY MOUTH DAILY ORAL ACTIVE MEERA GOLDMAN 2014 [facility] AZELASTINE HCL 137MCG/SPRA Y INHL,NASAL, 30ML SPRAY 1 SPRAY IN NOSTRIL( S) TWICE A DAY NASAL ACTIVE JAMISON FLYNN 2024 [facility] BUPROPION HCL 300MG 24HR TAB,SA TAKE ONE TABLET BY MOUTH ONCE A DAY FOR DEPRESSI ON SWALLOW WHOLE - DO NOT CRUSH OR CHEW. ORAL ACTIVE 05/01/2025 [id number] 5 JAMISON FLYNN 2024 90 [facility] BUPROPION HCL 300MG 24HR TAB,SA TAKE ONE TABLET BY MOUTH ONCE A DAY FOR DEPRESSI ON SWALLOW WHOLE - DO NOT CRUSH OR CHEW. ORAL DISCONT INUED 09/25/2024 [id number] 4 JAMISON FLYNN 2023 90 [facility] CARVEDILOL 25MG TAB TAKE ONE TABLET BY MOUTH TWICE A DAY ORAL ACTIVE MEERA GOLDMAN 2015 [facility] CHOLECALCIF KRISTYN (LOW DOSE VIT D) - (OTC) TAB TAKE BY MOUTH ONCE A DAY ORAL ACTIVE JAMISON FLYNN 2024 [facility] CHOLECALCIF KRISTYN 25MCG (1,000UNIT) TAB TAKE ONE TABLET BY MOUTH DAILY ORAL ACTIVE FAHEEM PALACIOS 2017 [facility] CLONIDINE HCL 0.1MG TAB TAKE ONE TABLET BY MOUTH ONCE A DAY ORAL ACTIVE JAMISON FLYNN 2024 [facility] CLOPIDOGREL BISULFATE 75MG TAB TAKE ONE TABLET BY MOUTH DAILY ORAL ACTIVE MEERA GOLDMAN 2017 [facility] CLOPIDOGREL BISULFATE 75MG TAB TAKE ONE TABLET BY MOUTH ONCE A DAY ORAL ACTIVE JAMISON FLYNN 2024 [facility] DULOXETINE HCL 60MG CAP,EC TAKE ONE CAPSULE BY MOUTH TWICE A DAY FOR DEPRESSI ON DO NOT ABRUPTLY DISCONTI NUE MEDICATI ON. ORAL ACTIVE 05/01/2025 [id number] 5 JAMISON FLYNN [address] [place] [address] [facility] DULOXETINE HCL 60MG CAP,EC TAKE ONE CAPSULE BY MOUTH TWICE A DAY FOR DEPRESSI ON DO NOT ABRUPTLY DISCONTI NUE MEDICATI ON. ORAL DISCONT INUED 11/07/2024 [id number] NAMRATA MULLINS 2023 180 [facility] DULOXETINE HCL 60MG CAP,EC TAKE ONE CAPSULE BY MOUTH ONCE A DAY FOR DEPRESSI ON DO NOT ABRUPTLY DISCONTI NUE MEDICATI ON. ORAL DISCONT INUED (EDIT) 09/25/2024 [id number] JAMISON FLYNN Tesha 2023 90 [facility] HYDROCHLORO THIAZIDE 25MG TAB TAKE ONE-HALF TABLET BY MOUTH ONCE A DAY ORAL ACTIVE JAMISON FLYNN 2024 [facility] ISOSORBIDE MONONITRATE 30MG TAB,SA TAKE ONE TABLET BY MOUTH ONCE A DAY ORAL ACTIVE JAMISON FLYNN 2024 [facility] LEVOTHYROXI NE NA 150MCG TAB (SYNTHROID) TAKE ONE TABLET BY MOUTH EVERY MORNING BEFORE A MEAL ORAL ACTIVE JAMISON FLYNN 2024 [facility] LOSARTAN POTASSIUM 100MG TAB TAKE ONE TABLET BY MOUTH DAILY ORAL ACTIVE MEERA GOLDMAN 2015 [facility] LOSARTAN POTASSIUM 100MG TAB TAKE ONE TABLET BY MOUTH ONCE A DAY ORAL ACTIVE JAMISON FLYNN 2024 [facility] MONTELUKAST NA 10MG TAB TAKE ONE TABLET BY MOUTH EVERY EVENING ORAL ACTIVE JAMISON FLYNN 2024 [facility] MULTIVITAMI NS CAP/TAB TAKE ONE TABLET BY MOUTH ONCE A DAY ORAL ACTIVE GEE JAMISON Tesha 2024 [facility] NISOLDIPINE (24HR SR) TAB,SA TAKE 17MG BY MOUTH ONCE A DAY ORAL ACTIVE JAMISON FLYNN 2024 [facility] ROSUVASTATI N CA 20MG TAB TAKE ONE-HALF TABLET BY MOUTH DAILY ORAL ACTIVE MEERA GOLDMAN 2014 [facility] ROSUVASTATI N CA 20MG TAB TAKE ONE-HALF TABLET BY MOUTH EVERY EVENING ORAL ACTIVE JAMISON FLYNN 2024 [facility] TIOTROPIUM 2.5MCG/ACTU AT INHL,ORAL,6 0D,4GM INHALE 1 BY ORAL INHALATI ON DAILY RESPIR ATORY (INHAL ATION) ACTIVE MEERA GOLDMAN 2014 [facility] TRAZODONE HCL 100MG TAB TAKE ONE TABLET BY MOUTH AT BEDTIME NEEDED FOR INSOMNIA ORAL ACTIVE 05/01/2025 [id number] 5 JAMISON FLYNN 2024 90 [facility] TRAZODONE HCL 100MG TAB TAKE ONE TABLET BY MOUTH AT BEDTIME NEEDED FOR INSOMNIA ORAL DISCONT INUED 08/04/2024 [id number] 5 JAMISON FLYNN 2023 90 [facility] Allergies, Adverse Reactions, Alerts Combined list of allergies from Department of Defense and Veterans Affairs facilities. It does not include entries that were removed or entered in error. Substance Category Reaction Severity Reaction type Status Date Reported Comments Source ADHESIVES Propensity to adverse reaction (finding) Eruption active 4 [facility] ATORVASTATIN Propensity to adverse reactions to drug (finding) Muscle pain active 4 [facility] CECLOR Propensity to adverse reactions to drug (finding) active 9 [facility] CECLOR Propensity to adverse reactions to drug (finding) Eruption active 4 [facility] [place] Propensity to adverse reaction (finding) Nasal congestion active 4 [facility] CYCLOBENZAPR INE Propensity to adverse reactions to drug (finding) Eruption active 9 [facility] [place] Propensity to adverse reaction (finding) Nasal congestion active 4 [facility] INFLUENZA Propensity to adverse reactions to drug (finding) Urticaria, Eruption active 4 [facility] NICOTINE PATCH Propensity to adverse reactions to drug (finding) Eruption active 4 [facility] ZOLPIDEM Propensity to adverse reactions to drug (finding) active 5 [facility] ZOLPIDEM Propensity to adverse reactions to drug (finding) Akinesia active 4 [facility] Immunizations Combined list of available immunizations from the Department of Defense and Veterans Affairs facilities. Immunization Series Date Given Administered By Site Reaction Lot Number CVX Code Drug Engineer Technician Status Comments Source TDAP 2018 115 complet ed HISTORICA L INFORMATI ON - FROM PATIENT'S WRITTEN RECORD, [facility] PNEUMOCOCCAL POLYSACCHARID E PPV23 2011 33 complet ed had record [facility] TD(ADULT) UNSPECIFIED FORMULATION 2010 139 complet ed [facility] TD(ADULT) UNSPECIFIED FORMULATION 2003 139 complet ed [facility] Results Combined list of recent chemistry, hematology [...] 07, 2023 12:59 PM Reporting Lab: [facility] [address] [place] [address] Performing Lab: [facility] [address] [place], [place] [phone] [address] [facility] CBC ERYTHROCYTE S [#/VOLUME] IN BLOOD BY AUTOMATED COUNT 4.76 10*6/uL 3.60 - 5.00 06/06 Specimen Type: BLOOD No comment entered. Ordering Provider: EMELIA FLYNN Report Released Date/Time: Jun 07, 2023 12:59 PM Reporting Lab: [facility] [address] [place] [phone] Performing Lab: [facility] [address] [place] [phone] [place] [address] [facility] CBC HEMOGLOBIN [MASS/VOLUM E] IN BLOOD 12.9 g/dL 11.0 - 14.9 06/06 Specimen Type: BLOOD No comment entered. Ordering Provider: EMELIA FLYNN Report Released Date/Time: Jun 07, 2023 12:59 PM Reporting Lab: [facility] [address] [place] [phone] Performing Lab: [address] [address] [facility] CBC HEMATOCRIT [VOLUME FRACTION] OF BLOOD 39.7 32.6 - 43.4 06/06 Specimen Type: BLOOD No comment entered. Ordering Provider: EMELIA FLYNN Report Released Date/Time: Jun 07, 2023 12:59 PM Reporting Lab: [address] [phone] Performing Lab: [address] [phone] [place] [address] [facility] CBC MCV [ENTITIC VOLUME] BY AUTOMATED COUNT 83.4 fL 80.0 - 100.0 06/06 Specimen Type: BLOOD No comment entered. Ordering Provider: EMELIA FLYNN Report Released Date/Time: Jun 07, 2023 12:59 PM Reporting Lab: [address] [phone] Performing Lab: [address] [phone] [place] [address] [facility] CBC MCH [ENTITIC MASS] BY AUTOMATED COUNT 27.1 pg 27.0 - 34.0 06/06 Specimen Type: BLOOD No comment entered. Ordering Provider: EMELIA FLYNN Report Released Date/Time: Jun 07, 2023 12:59 PM Reporting Lab: [address] [address] Performing Lab: [address] [phone] [place] [address] [facility] CBC MCHC [MASS/VOLUM E] BY AUTOMATED COUNT 32.5 g/dL 33.0 - 36.0 06/06 L Specimen Type: BLOOD No comment entered. Ordering Provider: EMELIA FLYNN Report Released Date/Time: Jun 07, 2023 12:59 PM Reporting Lab: [address] [address] Performing Lab: [address] [phone] [place] [address] [facility] CBC PLATELETS [#/VOLUME] IN BLOOD BY AUTOMATED COUNT 220 10*3/uL 150 - 400 06/06 Specimen Type: BLOOD No comment entered. Ordering Provider: EMELIA FLYNN Report Released Date/Time: Jun 07, 2023 12:59 PM Reporting Lab: [facility] [address] [place] [address] Performing Lab: [place] [phone] [facility] CBC PLATELET MEAN VOLUME [ENTITIC VOLUME] IN BLOOD BY AUTOMATED COUNT 9.6 fL 7.5 - 11.2 06/06 Specimen Type: BLOOD No comment entered. Ordering Provider: EMELIA FLYNN Report Released Date/Time: Jun 07, 2023 12:59 PM Reporting Lab: [place] [address] Performing Lab: [address] [facility] CBC ERYTHROCYTE DISTRIBUTIO N WIDTH [RATIO] BY AUTOMATED COUNT 12.6 11.8 - 15.1 06/06 Specimen Type: BLOOD No comment entered. Ordering Provider: EMELIA FLYNN Report Released Date/Time: Jun 07, 2023 12:59 PM Reporting Lab: [place] [address] Performing Lab: [place] [phone] [facility] CBC LYMPHOCYTES /100 LEUKOCYTES IN BLOOD BY AUTOMATED COUNT 27 06/06 Specimen Type: BLOOD No comment entered. Ordering Provider: EMELIA FLYNN Report Released Date/Time: Jun 07, 2023 12:59 PM Reporting Lab: [facility] [address] [place] [address] Performing Lab: [address] [facility] CBC MONOCYTES/1 00 LEUKOCYTES IN BLOOD BY AUTOMATED COUNT 7 06/06 Specimen Type: BLOOD No comment entered. Ordering Provider: EMELIA FLYNN Report Released Date/Time: Jun 07, 2023 12:59 PM Reporting Lab: [facility] [address] [place] [phone] Performing Lab: [address] [phone] [place] [address] [facility] CBC NEUTROPHILS /100 LEUKOCYTES IN BLOOD BY AUTOMATED COUNT 64 06/06 Specimen Type: BLOOD No comment entered. Ordering Provider: EMELIA FLYNN Report Released Date/Time: Jun 07, 2023 12:59 PM Reporting Lab: [facility] [address] [place] [phone] Performing Lab: [place] [phone] [facility] CBC EOSINOPHILS /100 LEUKOCYTES IN BLOOD BY AUTOMATED COUNT 2 06/06 Specimen Type: BLOOD No comment entered. Ordering Provider: EMELIA FLYNN Report Released Date/Time: Jun 07, 2023 12:59 PM Reporting Lab: [facility] [address] [place] [phone] Performing Lab: [address] [phone] [facility] CBC BASOPHILS/1 00 LEUKOCYTES IN BLOOD BY AUTOMATED COUNT 1 06/06 Specimen Type: BLOOD No comment entered. Ordering Provider: EMELIA FLYNN Report Released Date/Time: Jun 07, 2023 12:59 PM Reporting Lab: [facility] [address] [place] [phone] Performing Lab: [facility] [phone] [facility] CBC LYMPHOCYTES [#/VOLUME] IN BLOOD BY AUTOMATED COUNT 1.86 10*3/uL 0.77 - 4.50 06/06 Specimen Type: BLOOD No comment entered. Ordering Provider: EMELIA FLYNN Report Released Date/Time: Jun 07, 2023 12:59 PM Reporting Lab: [facility] [address] [place], [place] [phone] Performing Lab: [facility] [address] [place] [phone] [facility] CBC MONOCYTES [#/VOLUME] IN BLOOD BY AUTOMATED COUNT 0.47 10*3/uL 0.19 - 0.80 06/06 Specimen Type: BLOOD No comment entered. Ordering Provider: EMELIA FLYNN Report Released Date/Time: Jun 07, 2023 12:59 PM Reporting Lab: [address] [phone] Performing Lab: [address] [phone] [facility] CBC NEUTROPHILS [#/VOLUME] IN BLOOD BY AUTOMATED COUNT 4.48 10*3/uL 2.10 - 8.00 06/06 Specimen Type: BLOOD No comment entered. Ordering Provider: EMELIA FLYNN Report Released Date/Time: Jun 07, 2023 12:59 PM Reporting Lab: [address] [phone] Performing Lab: [address] [phone] [facility] CBC EOSINOPHILS [#/VOLUME] IN BLOOD BY AUTOMATED COUNT 0.16 10*3/uL 0.00 - 0.60 06/06 Specimen Type: BLOOD No comment entered. Ordering Provider: EMELIA FLYNN Report Released Date/Time: Jun 07, 2023 12:59 PM Reporting Lab: [address] [address] Performing Lab: [address] [address] [facility] CBC BASOPHILS [#/VOLUME] IN BLOOD BY AUTOMATED COUNT 0.05 10*3/uL 0.00 - 0.20 06/06 Specimen Type: BLOOD No comment entered. Ordering Provider: EMELIA FLYNN Report Released Date/Time: Jun 07, 2023 12:59 PM Reporting Lab: [place] [phone] Performing Lab: [facility] [address] [facility] [address] [facility] COMPREHEN SIVE METABOLIC PANEL CREATININE [MASS/VOLUM E] IN SERUM OR PLASMA 1.04 mg/dL 0.6 - 1.1 06/06 Specimen Type: PLASMA Comment: No hemolysis noted. Ordering Provider: EMELIA FLYNN Report Released Date/Time: Jun 07, 2023 12:59 PM Reporting Lab: [place] [address] [facility] [address] Performing Lab: [place] [address] [facility] [address] [facility] COMPREHEN SIVE METABOLIC PANEL UREA NITROGEN [MASS/VOLUM E] IN SERUM OR PLASMA 15.6 mg/dL 9.0 - 25.0 06/06 Specimen Type: PLASMA Comment: No hemolysis noted. Ordering Provider: EMELIA FLYNN Report Released Date/Time: Jun 07, 2023 12:59 PM Reporting Lab: [facility] [address] [place] [phone] Performing Lab: [address] [address] [facility] COMPREHEN SIVE METABOLIC PANEL GLUCOSE [MASS/VOLUM E] IN SERUM OR PLASMA 97 mg/dL 72 - 99 06/06 Specimen Type: PLASMA Comment: No hemolysis noted. Ordering Provider: EMELIA FLYNN Report Released Date/Time: Jun 07, 2023 12:59 PM Reporting Lab: [facility] [address] [place] [phone] Performing Lab: [address] [address] [facility] COMPREHEN SIVE METABOLIC PANEL SODIUM [MOLES/VOLU ME] IN SERUM OR PLASMA 142 meq/L 136 - 145 06/06 Specimen Type: PLASMA Comment: No hemolysis noted. Ordering Provider: EMELIA FLYNN Report Released Date/Time: Jun 07, 2023 12:59 PM Reporting Lab: [facility] [address] [place] [address] Performing Lab: [facility] [address] [place] [phone] [facility] COMPREHEN SIVE METABOLIC PANEL POTASSIUM [MOLES/VOLU ME] IN SERUM OR PLASMA 3.7 meq/L 3.5 - 5 06/06 Specimen Type: PLASMA Comment: No hemolysis noted. Ordering Provider: EMELIA FLYNN Report Released Date/Time: Jun 07, 2023 12:59 PM Reporting Lab: [address] [phone] Performing Lab: [address] [address] [facility] COMPREHEN SIVE METABOLIC PANEL CHLORIDE [MOLES/VOLU ME] IN SERUM OR PLASMA 105 meq/L 98 - 107 06/06 Specimen Type: PLASMA Comment: No hemolysis noted. Ordering Provider: EMELIA FLYNN Report Released Date/Time: Jun 07, 2023 12:59 PM Reporting Lab: [facility] [address] [place] [phone] Performing Lab: [address] [phone] [place] [address] [facility] COMPREHEN SIVE METABOLIC PANEL CARBON DIOXIDE, TOTAL [MOLES/VOLU ME] IN SERUM OR PLASMA 26 meq/L 22 - 31 06/06 Specimen Type: PLASMA Comment: No hemolysis noted. Ordering Provider: EMELIA FLYNN Report Released Date/Time: Jun 07, 2023 12:59 PM Reporting Lab: [facility] [address] [place] [phone] Performing Lab: [address] [phone] [facility] COMPREHEN SIVE METABOLIC PANEL CALCIUM [MASS/VOLUM E] IN SERUM OR PLASMA 9.7 mg/dL 8.4 - 10.4 06/06 Specimen Type: PLASMA Comment: No hemolysis noted. Ordering Provider: EMELIA FLYNN Report Released Date/Time: Jun 07, 2023 12:59 PM Reporting Lab: [place] [address] [facility] [address] Performing Lab: [place] [address] [facility] [address] [facility] COMPREHEN SIVE METABOLIC PANEL PROTEIN [MASS/VOLUM E] IN SERUM OR PLASMA 6.7 g/dL 6 - 8.6 06/06 Specimen Type: PLASMA Comment: No hemolysis noted. Ordering Provider: EMELIA FLYNN Report Released Date/Time: Jun 07, 2023 12:59 PM Reporting Lab: [place] [address] [place] [phone] Performing Lab: [place] [address] [place] [phone] [place] [address] [facility] COMPREHEN SIVE METABOLIC PANEL ALBUMIN [MASS/VOLUM E] IN SERUM OR PLASMA 4.1 g/dL 3.4 - 5 06/06 Specimen Type: PLASMA Comment: No hemolysis noted. Ordering Provider: EMELIA FLYNN Report Released Date/Time: Jun 07, 2023 12:59 PM Reporting Lab: [place] [address] [place] [phone] Performing Lab: [place] [address] [place] [phone] [facility] COMPREHEN SIVE METABOLIC PANEL BILIRUBIN.T OTAL [MASS/VOLUM E] IN SERUM OR PLASMA 0.6 mg/dL 0.2 - 1.2 06/06 Specimen Type: PLASMA Comment: No hemolysis noted. Ordering Provider: EMELIA FLYNN Report Released Date/Time: Jun 07, 2023 12:59 PM Reporting Lab: [facility] [place] [phone] Performing Lab: [place] [address] [place] [phone] [facility] COMPREHEN SIVE METABOLIC PANEL ALKALINE PHOSPHATASE [ENZYMATIC ACTIVITY/VO LUME] IN SERUM OR PLASMA 97 U/L 40 - 150 06/06 Specimen Type: PLASMA Comment: No hemolysis noted. Ordering Provider: EMELIA FLYNN Report Released Date/Time: Jun 07, 2023 12:59 PM Reporting Lab: [facility] [address] [place], [place] [phone] Performing Lab: [facility] [address] [place] [address] [phone] [place] [address] [facility] COMPREHEN SIVE METABOLIC PANEL ASPARTATE AMINOTRANSF ERASE [ENZYMATIC ACTIVITY/VO LUME] IN SERUM OR PLASMA 15 U/L 5 - 34 06/06 Specimen Type: PLASMA Comment: No hemolysis noted. Ordering Provider: EMELIA FLYNN Report Released Date/Time: Jun 07, 2023 12:59 PM Reporting Lab: [place] [phone] Performing Lab: [place] [phone] [facility] COMPREHEN SIVE METABOLIC PANEL ALANINE AMINOTRANSF ERASE [ENZYMATIC ACTIVITY/VO LUME] IN SERUM OR PLASMA 14 U/L 8 - 40 06/06 Specimen Type: PLASMA Comment: No hemolysis noted. Ordering Provider: EMELIA FLYNN Report Released Date/Time: Jun 07, 2023 12:59 PM Reporting Lab: [facility] [address] [place] [phone] Performing Lab: [address] [phone] [place] [address] [facility] COMPREHEN SIVE METABOLIC PANEL GLOMERULAR FILTRATION RATE/1.73 SQ M.PREDICTED [VOLUME RATE/AREA] IN SERUM, PLASMA OR BLOOD BY CREATININE- BASED FORMULA (CKD-EPI 2020) 59.7 60 06/06 Specimen Type: PLASMA Comment: No hemolysis noted. Ordering Provider: EMELIA FLYNN Report Released Date/Time: Jun 07, 2023 12:59 PM Reporting Lab: [facility] [address] [place] [phone] Performing Lab: [id number] [place] [address] [facility] HEP C Ab HCV Ab (STL) HEPATITIS C VIRUS AB [PRESENCE] IN SERUM Nonreact kena 06/06 Specimen Type: SERUM No comment entered. Ordering Provider: EMELIA FLYNN Report Released Date/Time: Jun 07, 2023 12:59 PM Reporting Lab: [facility] [address] [place] [phone] Performing Lab: [id number] [place] [address] [facility] HGA1C HEMOGLOBIN A1C/HEMOGLO BIN.TOTAL IN BLOOD 5.6 4.0 - 6.0 06/06 H Specimen Type: BLOOD Comment: NOTIFIED JAMISON FLYNN QUILL SKINNER ON 06/07/23 @ 2226 MTS HGA1C reported incorrectly as 6.3 by [[id number]]. Changed to 5.6 on Jun 07, 2023@22:26 by [[id number]]. HGA1C flagged incorrectly as H by [[id number]]. Changed to normal on Jun 07, 2023@22:26 by [[id number]]. Ordering Provider: EMELIA FLYNN Report Released Date/Time: Jun 07, 2023 12:59 PM Reporting Lab: [facility] [address] [place] [address] Performing Lab: [phone] [place] [address] [facility] HIV COMBO FOURTH GENERATIO N (STL) HIV 1+2 AB+HIV1 P24 AG [PRESENCE] IN SERUM OR PLASMA BY IMMUNOASSAY Nonreact kena 06/06 Specimen Type: SERUM No comment entered. Ordering Provider: EMELIA FLYNN Report Released Date/Time: Jun 07, 2023 12:59 PM Reporting Lab: [facility] [address] [place] [phone] Performing Lab: [facility] [address] [place] [phone] [place] [address] [facility] LIPID PANEL (STL) CHOLESTEROL [MASS/VOLUM E] IN SERUM OR PLASMA 146 mg/dL 0 - 200 06/06 Specimen Type: PLASMA Comment: No hemolysis noted. Ordering Provider: EMELIA FLYNN Report Released Date/Time: Jun 07, 2023 12:59 PM Reporting Lab: [facility] [address] [place] [address] Performing Lab: [phone] [place] [address] [facility] LIPID PANEL (STL) TRIGLYCERID E [MASS/VOLUM E] IN SERUM OR PLASMA 107 mg/dL 0 - 150 06/06 Specimen Type: PLASMA Comment: No hemolysis noted. Ordering Provider: EMELIA FLYNN Report Released Date/Time: Jun 07, 2023 12:59 PM Reporting Lab: [place] [address] Performing Lab: [place] [id number] [facility] LIPID PANEL (STL) CHOLESTEROL IN LDL [MASS/VOLUM E] IN SERUM OR PLASMA BY CALCULATION 70 mg/dL 06/06 Specimen Type: PLASMA Comment: No hemolysis noted. Ordering Provider: EMELIA FLYNN Report Released Date/Time: Jun 07, 2023 12:59 PM Reporting Lab: [place] [address] Performing Lab: [place] [id number] [facility] LIPID PANEL (STL) CHOLESTEROL IN HDL [MASS/VOLUM E] IN SERUM OR PLASMA 55 mg/dL 40 06/06 Specimen Type: PLASMA Comment: No hemolysis noted. Ordering Provider: EMELIA FLYNN Report Released Date/Time: Jun 07, 2023 12:59 PM Reporting Lab: [facility] [address] [place] [address] Performing Lab: [place] [id number] [facility] MICRAL/CR EAT PROFILE (STL) ALBUMIN [MASS/VOLUM E] IN URINE 25.6 mg/L 06/06 Specimen Type: URINE No comment entered. Ordering Provider: EMELIA FLYNN Report Released Date/Time: Jun 07, 2023 12:59 PM Reporting Lab: [facility] [address] [place], [place] [phone] Performing Lab: [facility] [address] [place] [phone] [place] [address] [facility] MICRAL/CR EAT PROFILE (STL) ALBUMIN/CRE ATININE [MASS RATIO] IN URINE 12 mg/g 0 - 29 06/06 Specimen Type: URINE No comment entered. Ordering Provider: EMELIA FLYNN Report Released Date/Time: Jun 07, 2023 12:59 PM Reporting Lab: [place] [address] Performing Lab: [phone] [place] [address] [facility] MICRAL/CR EAT PROFILE (STL) CREATININE [MASS/VOLUM E] IN URINE 222.3 mg/dL 47 - 110 06/06 H Specimen Type: URINE No comment entered. Ordering Provider: EMELIA FLYNN Report Released Date/Time: Jun 07, 2023 12:59 PM Reporting Lab: [place] [address] Performing Lab: [phone] [place] [address] [facility] TSH ([facility]) THYROTROPIN [UNITS/VOLU ME] IN SERUM OR PLASMA 0.171 u[IU]/mL 0.47 - 5 06/06 L Specimen Type: SERUM Comment: No hemolysis noted. Ordering Provider: EMELIA FLYNN Report Released Date/Time: Jun 07, 2023 12:59 PM Reporting Lab: [facility] [address] [place], [place] [phone] Performing Lab: [address] [phone] [facility] THYROXINE (T4) FREE [MASS/VOLUM E] IN SERUM OR PLASMA 1.55 ng/mL 0.7 - 1.48 06/06 H Specimen Type: SERUM Comment: No hemolysis noted. Ordering Provider: EMELIA FLYNN Report Released Date/Time: Jun 07, 2023 12:59 PM Reporting Lab: [facility] [address] [facility] [address] Performing Lab: [address] [phone] [facility] Encounters Combined list of: 1) Encounters from Department of [facility] facilities going backup to the last 18 months, not all [place] inpatient encounters are included; 2) Encounters from the Department of [facility] facilities going backup to 280 months. Location Location Details Encounter Type Encounter Number Reason For Visit Attending Provider ADM Date DC Date Status Disposition Source [facility] Outpatient Encounter [id number] 04/03 [facility] Outpatient Encounter [id number] 04/03 [facility] Outpatient Encounter [id number] 04/12 [facility] Outpatient Encounter [id number] 04/[address] [facility] Outpatient Encounter [id number] 05/07 [facility] En[facility] [id number] 05/08 [facility] Outpatient Encounter [id number] 05/14 [facility] Outpatient Encounter [id number] 05/16 [facility] Outpatient Encounter [id number] 05/16 [facility] Out[facility] Encounter [id number] [facility] OFFICE O/P NEW LOW 30 MIN [id number] Diagnos is: ICD-10- CM Z00.00 Encntr for general adult medical exam w/o abnorma l finding s Jhonny FLYNN 06/06 [facility] FEE [id number] Diagnos is: ICD-10- CM Z55.9 Problem s related to educati on and literac y, unspeci fied VALDEMAR CASTANO O 06/06 [facility] Outpatient Encounter [id number] Jhonny FLYNN 06/06 [facility] Outpatient Encounter [id number] 06/06 [facility] Outpatient Encounter [id number] Jhonny FLYNN 06/07 [facility] Outpatient Encounter [id number] 06/09 [facility] Outpatient Encounter [id number] 06/09 [facility] Outpatient Encounter [id number] 07/22 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 Outpatient Encounter [id number] Filomena BECKFORD JR 08/01 [facility] Outpatient Encounter [id number] ESME YOST 08/01 [facility] Outpatient Encounter [id number] 08/[address] [facility] Outpatient Encounter [id number] 08/13 [facility] Outpatient Encounter [id number] DARYL AMOS I T 09/24 [facility] Outpatient Encounter [id number] 10/20 [facility] Outpatient Encounter [id number] FLACO JOHNSON 11/04 [facility] Outpatient Encounter [id number] 11/04 [facility] Outpatient Encounter [id number] ESME YOST 11/06 [facility] Outpatient Encounter [id number] 11/12 [facility] Outpatient Encounter [id number] 11/24 [facility] Outpatient Encounter [id number] CLAUDIA ESQUIVELELDA LA 04/22 [facility] Outpatient Encounter [id number] CLAUDIA ESQUIVELELDA LA 04/22 [facility] Outpatient Encounter [id number] FLACO JOHNSON KIRAN 04/24 [facility] Outpatient Encounter [id number] 04/28 [facility] N [facility] OFFICE O/P EST LOW 20 MIN [id number] Diagnos is: ICD-10- CM 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 Social History Type Response Date Comment Sourc e Tobacco smoking status NHIS VA-TOBACCO USER EVERY DAY 06/07/2023 [facility] History of tobacco use VA-TOBACCO USE WI 30 MIN OF WAKEUP 06/07/2023 [facility] History of tobacco use VA-TOBACCO USER [...] [facility] This section is an empty social history [...]
[2024-10-12 19:06] VITALS: BP 127/100; PULSE 57; RESP 20; TEMP 36.7; O2SAT 98
== END 2024-10-12 19:25 | disposition home or self-care (01) ==
PROVIDERS: Emergency Provider Nurse Practitioner; PCP Family Medicine
DX: S30.861A Insect bite (nonvenomous) of abdominal wall, initial encounter (principal); W57.XXXA Bitten or stung by nonvenomous insect and other nonvenomous arthropods, initial encounter; A69.20 Lyme disease, unspecified; J44.9 Chronic obstructive pulmonary disease, unspecified; I25.10 Atherosclerotic heart disease of native coronary artery without angina pectoris; I10 Essential (primary) hypertension; E78.00 Pure hypercholesterolemia, unspecified; E03.9 Hypothyroidism, unspecified; F41.9 Anxiety disorder, unspecified; Z95.1 Presence of aortocoronary bypass graft
CPT/HCPCS: 99213; G0463